=== PATIENT | male | born 1965 | race Caucasian/White ===

== ENCOUNTER 2018-09-30 07:35 | Emergency (ER) | payer OTHER, SELFPAY ==
[~2018-09-30] VITALS: Ht 170.2 cm; Wt 69.0 kg
[~2018-09-30 07:35] MED LIST: ACET650S3 PO; ALBU17IN INH; ASPI81CH21 PO; ATOR80TA59 PO; DILT1TAB12 PO; FIOR1CAP PO; GABA-843 PO; LISI10TA4 PO; NEUR300C PO; NEUR600T PO; PAXI10TA2 PO; POTA99TA PO; TIZA4CAP PO; TRAZ50TA2 PO
--- NOTE | 2018-09-30 08:36 | REP ---
Portable chest, 08:17 a.m., single AP view with the patient sitting: Comparison is 10/19/2014. The lung scott are clear. The cardiac size is normal. The keven, mediastinum, and skeletal structures are unremarkable. There has been interval placement of a dual chamber pacemaker. Impression: Negative portable chest. There has been interval placement of a dual chamber pacemaker. There is no other interval change. Electronically Signed by Cole Briceno MD 09/30/2018 08:28 A
[2018-09-30 08:46] LABS: BASO # 0.1 10^3/uL (0.0-0.2); BASO % 0.8 % (0.0-1.0); EOS # 0.3 10^3/uL (0.0-0.50); EOS % 3.4 % (0.0-3.0); HEMATOCRIT 37.4 % (42.0-52.0); HEMOGLOBIN 13.1 g/dl (13.5-17.5); LYMPH # 2.4 10^3/uL (1.5-4.5); LYMPH % 30.9 % (24.0-44.0); MEAN CORPUSCULAR HEMOGLOBIN 31.3 pg (27.0-33.0); MEAN CORPUSCULAR VOLUME 89.3 fl (80.0-96.0); MONO # 0.5 10^3/uL (0.0-0.8); MONO % 6.6 % (0.0-5.0); NEUTROPHILS # 4.5 10^3/uL (1.8-7.7); NEUTROPHILS % 57.7 % (36.0-66.0); PLATELET COUNT, AUTOMATED 317 10^3/uL (150-450); RED BLOOD COUNT 4.19 10^6/uL (4.30-6.10); WHITE BLOOD COUNT 7.7 10^3/uL (4.0-10.0)
[2018-09-30 09:12] LABS: ALBUMIN 3.4 GM/DL (3.2-5.2); ALT/SGPT 55 U/L (12-78); BILIRUBIN,DIRECT < 0.1 MG/DL (0.0-0.2); BILIRUBIN,TOTAL 0.1 MG/DL (0.2-1.0); BLOOD UREA NITROGEN 11 MG/DL (7-18); C REACTIVE PROTEIN QUANTITATIV < 0.30 MG/DL (0.00-0.30); CALCIUM LEVEL 8.5 MG/DL (8.5-10.1); CARBON DIOXIDE LEVEL 25 MEQ/L (21-32); CHLORIDE LEVEL 111 MEQ/L (98-107); CK-MB VALUE MASS 1.7 NG/ML (<3.6); CPK CREATINE PHOSPHOKINASE 73 U/L (39-308); CREATININE FOR GFR 0.84 MG/DL (0.70-1.30); GLOMERULAR FILTRATION RATE > 60.0 (>56); GLUCOSE, FASTING 105 MG/DL (70-100); MB/CK RELATIVE INDEX 2.33 (< OR =4); POTASSIUM SERUM 3.9 MEQ/L (3.5-5.1); SODIUM LEVEL 143 MEQ/L (136-145); TOTAL PROTEIN 6.6 GM/DL (6.4-8.2); TROPONIN I < 0.02 NG/ML (< 0.10)
[2018-09-30 09:29] LABS: ERYTHROCYTE SEDIMENTATION RATE 6 mm/hr (0-20)
[2018-09-30 10:36] VITALS: BP 155/82
--- NOTE | 2018-09-30 20:12 | ECGEPIP ---
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
== END 2018-09-30 10:54 | disposition home or self-care (01) ==
LOC: M ED 07:35
DX: R07.89 Other chest pain (principal); Z95.0 Presence of cardiac pacemaker; I10 Essential (primary) hypertension; B19.20 Unspecified viral hepatitis C without hepatic coma; I44.7 Left bundle-branch block, unspecified; I25.2 Old myocardial infarction; Z79.899 Other long term (current) drug therapy; Z79.02 Long term (current) use of antithrombotics/antiplatelets; Z88.0 Allergy status to penicillin; F17.210 Nicotine dependence, cigarettes, uncomplicated; F11.20 Opioid dependence, uncomplicated; F12.20 Cannabis dependence, uncomplicated; F14.20 Cocaine dependence, uncomplicated

== ENCOUNTER 2018-10-26 13:02 | Emergency (ER) | payer MEDICAID, OTHER, SELFPAY ==
[~2018-10-26] VITALS: Ht 170.2 cm; Wt 68.8 kg
[2018-10-26] MEDS ORDERED: LISI-542 (13:15)
[2018-10-26] MEDS ORDERED: CARV6.25 (13:15)
[2018-10-26] MEDS ORDERED: CLOP75TA2 (13:15)
[2018-10-26] MEDS ORDERED: NORC1TAB7 PO (15:10)
[2018-10-26 15:17] VITALS: BP 130/69
== END 2018-10-26 15:22 | disposition home or self-care (01) ==
LOC: M ED 13:02
DX: M54.2 Cervicalgia (principal); G89.29 Other chronic pain; H57.12 Ocular pain, left eye; I25.10 Atherosclerotic heart disease of native coronary artery without angina pectoris; I25.2 Old myocardial infarction; Z95.0 Presence of cardiac pacemaker; Z88.0 Allergy status to penicillin; Z79.899 Other long term (current) drug therapy; Z79.02 Long term (current) use of antithrombotics/antiplatelets

== ENCOUNTER → 2018-12-06 | Outpatient (REF) | payer OTHER, MEDICAID ==
[~2018-12-06] MED LIST changes: +CARV6.25; +CLOP75TA2; +LISI-542; +NORC1TAB7 PO
[2018-12-06 15:57] LABS: BASO # 0.1 10^3/uL (0.0-0.2); BASO % 0.9 % (0.0-1.0); EOS # 0.2 10^3/uL (0.0-0.5); EOS % 1.6 % (0.0-3.0); HEMATOCRIT 47.1 % (42.0-52.0); HEMOGLOBIN 15.6 g/dl (13.5-17.5); LYMPH % 32.5 % (24.0-44.0); MEAN CORPUSCULAR HEMOGLOBIN 30.5 pg (27.0-33.0); MEAN CORPUSCULAR HGB CONC 33.1 g/dl (32.0-36.5); MEAN CORPUSCULAR VOLUME 92.2 fl (80.0-96.0); MONO # 0.7 10^3/uL (0.0-0.8); MONO % 7.5 % (0.0-5.0); NEUTROPHILS # 5.4 10^3/uL (1.5-8.5); NEUTROPHILS % 57.3 % (36.0-66.0); PLATELET COUNT, AUTOMATED 405 10^3/uL (150-450); RED BLOOD COUNT 5.11 10^6/uL (4.30-6.10); WHITE BLOOD COUNT 9.3 10^3/uL (4.0-10.0)
[2018-12-06 16:26] LABS: ALBUMIN 4.1 GM/DL (3.2-5.2); ALT/SGPT 57 U/L (12-78); BILIRUBIN,TOTAL 0.3 MG/DL (0.2-1.0); BLOOD UREA NITROGEN 10 MG/DL (7-18); CALCIUM LEVEL 9.6 MG/DL (8.5-10.1); CARBON DIOXIDE LEVEL 31 MEQ/L (21-32); CHLORIDE LEVEL 102 MEQ/L (98-107); CHOLESTEROL LEVEL 191 MG/DL (<200); CHOLESTEROL RISK RATIO 3.745 (<5); CREATININE FOR GFR 0.85 MG/DL (0.70-1.30); GLOMERULAR FILTRATION RATE > 60.0 (>56); GLUCOSE, FASTING 60 MG/DL (70-100); HDL CHOLESTEROL 51 MG/DL (>40); LDL CHOLESTEROL 68 MG/DL (<100); NON-HDL-C 140 MG/DL; POTASSIUM SERUM 4.4 MEQ/L (3.5-5.1); SODIUM LEVEL 139 MEQ/L (136-145); TOTAL PROTEIN 8.2 GM/DL (6.4-8.2); TRIGLYCERIDES LEVEL 358 MG/DL (<150)
[2018-12-09 10:57] LABS: HEPATITIS B SURFACE ANTIBODY POSITIVE (POSITIVE)
[2018-12-09 11:08] LABS: HEPATITIS B SURFACE ANTIGEN NEGATIVE (NEGATIVE)
[2018-12-09 11:56] LABS: HEPATITIS C VIRUS ABY INDEX > 11.0 INDEX (<0.8)
[2018-12-10 16:47] LABS: HEPATITIS B CORE ANTIBODY IGG Negative (Negative); HEPATITIS C QUANTITATION 4610610 IU/mL (.)
== END ==
LOC: M LABDRAW1 14:10
PROVIDERS: ATTEND Family Medicine
DX: Z13.220 Encounter for screening for lipoid disorders (principal); B18.2 Chronic viral hepatitis C; D64.9 Anemia, unspecified

== ENCOUNTER 2018-12-21 23:52 | Emergency (ER) | payer MEDICAID, OTHER ==
[~2018-12-21] VITALS: Ht 170.2 cm; Wt 65.9 kg
[2018-12-22] MEDS ORDERED: DULO1CAP5
[2018-12-22] MEDS ORDERED: ASPI81CH48
[2018-12-22] MEDS ORDERED: METH4PACK
[2018-12-22] MEDS ORDERED: TIZA4TAB4
[2018-12-22] MEDS ORDERED: DIAZ5TAB
[2018-12-22] MEDS ORDERED: VALI5TAB PO (03:23)
[2018-12-22] MEDS ORDERED: diazePAM 5 MG TAB PO ONE (03:30)
[2018-12-22] MEDS ORDERED: KETOROLAC 60 MG/2 ML VIAL (J1885) IM ONE (03:30)
[2018-12-22 03:40] VITALS: BP 136/67
== END 2018-12-22 03:54 | disposition home or self-care (01) ==
LOC: M ED 23:52
DX: M54.5 Low back pain (principal); Z88.0 Allergy status to penicillin; I10 Essential (primary) hypertension; Z79.82 Long term (current) use of aspirin; Z79.899 Other long term (current) drug therapy
CPT/HCPCS: 96372; 99283; J1885

== ENCOUNTER → 2019-01-09 | Outpatient (CLI) | payer OTHER ==
[~2019-01-09] MED LIST changes: +ASPI81CH48; +DIAZ5TAB; +DULO1CAP5; +METH4PACK; +TIZA4TAB4; +VALI5TAB PO
--- NOTE | 2019-01-09 09:39 | REP ---
CT lumbar spine: New 01/09/2019. Indication: Low back pain. Comparison: 02/02/2014. Technique: Unenhanced axial CT images of the lumbar spine were obtained with sagittal and coronal reconstructions provided. Findings: There is no acute fracture, subluxation or dislocation. Very minimal levoscoliosis of the lumbar spine is present with the convexity centered at L4/L5 . There is disc space narrowing and marginal spurring at L4/L5 as well. No significant paraspinal soft tissue abnormalities are detected. Surgical clips are noted within the left pelvis. No focal disc herniation or severe spinal stenosis are detected. Disc and spur complex at L4/L5 shows at least moderate narrowing of the neural foramina bilaterally. Impression: No acute osseous injury of the lumbar spine. Degenerative sequelae as described most pronounced at L4/L5. Electronically Signed by Alvin Mancilla DO 01/09/2019 09:30 A
== END ==
LOC: M RAD 08:55
PROVIDERS: ATTEND Physician Assistant
DX: M54.5 Low back pain (principal)

== ENCOUNTER 2019-02-03 09:42 | Emergency (ER) | payer OTHER ==
[~2019-02-03] VITALS: Ht 170.2 cm; Wt 68.2 kg
[2019-02-03 09:42] VITALS: BP 127/80
[2019-02-03] MEDS ORDERED: AMIT25TA (09:47)
[2019-02-03] MEDS ORDERED: ACETAMINOPHEN 500 MG TAB PO ONE (10:15)
[2019-02-03] MEDS ORDERED: CLINDAMYCIN 150 MG CAP PO ONE (10:15)
[2019-02-03] MEDS ORDERED: CLIN150C14 PO (10:19)
== END 2019-02-03 10:31 | disposition home or self-care (01) ==
LOC: M ED 09:42
DX: K04.7 Periapical abscess without sinus (principal); I21.9 Acute myocardial infarction, unspecified; I10 Essential (primary) hypertension; Z86.69 Personal history of other diseases of the nervous system and sense organs; Z88.0 Allergy status to penicillin; Z79.2 Long term (current) use of antibiotics; Z79.82 Long term (current) use of aspirin; Z79.899 Other long term (current) drug therapy

== ENCOUNTER 2019-03-22 15:28 | Emergency (ER) | payer OTHER ==
[~2019-03-22] VITALS: Ht 170.2 cm; Wt 65.0 kg
[~2019-03-22 15:28] MED LIST changes: +AMIT25TA; +CLIN150C14 PO
[2019-03-22] MEDS ORDERED: NS 500 ML IV ONE (16:15)
[2019-03-22 16:31] LABS: BASO # 0.1 10^3/uL (0.0-0.2); BASO % 0.8 % (0.0-1.0); EOS # 0.1 10^3/uL (0.0-0.5); EOS % 1.8 % (0.0-3.0); HEMATOCRIT 48.3 % (42.0-52.0); HEMOGLOBIN 15.9 g/dl (13.5-17.5); LYMPH % 37.8 % (24.0-44.0); MEAN CORPUSCULAR HEMOGLOBIN 28.7 pg (27.0-33.0); MEAN CORPUSCULAR HGB CONC 32.9 g/dl (32.0-36.5); MEAN CORPUSCULAR VOLUME 87.2 fl (80.0-96.0); MONO # 0.5 10^3/uL (0.0-0.8); MONO % 5.9 % (0.0-5.0); NEUTROPHILS # 4.2 10^3/uL (1.5-8.5); NEUTROPHILS % 53.3 % (36.0-66.0); PLATELET COUNT, AUTOMATED 314 10^3/uL (150-450); RED BLOOD COUNT 5.54 10^6/uL (4.30-6.10); WHITE BLOOD COUNT 7.9 10^3/uL (4.0-10.0)
--- NOTE | 2019-03-22 16:46 | REP ---
Portable chest x-ray: Single view. History: Chest pain. Comparison study: September 30, 2018. Findings: EKG monitoring electrodes are seen. A bipolar pacemaker is seen in the right heart via the left side as before. The heart is not enlarged. Lungs are well inflated and clear. Pleural angles are sharp. Pulmonary vasculature is not increased. No bony abnormalities seen. Impression: Pacemaker in place. No acute disease. Electronically Signed by Anson Knight MD 03/22/2019 04:37 P
[2019-03-22 16:47] LABS: INR 1.01
[2019-03-22 17:02] LABS: ALBUMIN 3.6 GM/DL (3.2-5.2); ALT/SGPT 63 U/L (12-78); BILIRUBIN,DIRECT 0.1 MG/DL (0.0-0.2); BILIRUBIN,TOTAL 0.4 MG/DL (0.2-1.0); BLOOD UREA NITROGEN 15 MG/DL (7-18); CALCIUM LEVEL 8.1 MG/DL (8.5-10.1); CARBON DIOXIDE LEVEL 24 MEQ/L (21-32); CHLORIDE LEVEL 107 MEQ/L (98-107); CK-MB VALUE MASS 2.7 NG/ML (<3.6); CPK CREATINE PHOSPHOKINASE 139 U/L (39-308); CREATININE FOR GFR 0.83 MG/DL (0.70-1.30); GLOMERULAR FILTRATION RATE > 60.0 (>56); GLUCOSE, FASTING 131 MG/DL (70-100); LIPASE 416 U/L (73-393); MB/CK RELATIVE INDEX 1.94 (< OR =4); NT-PRO BNP 414 PG/ML (<125); POTASSIUM SERUM 3.9 MEQ/L (3.5-5.1); SODIUM LEVEL 140 MEQ/L (136-145); TOTAL PROTEIN 6.9 GM/DL (6.4-8.2); TROPONIN I < 0.02 NG/ML (< 0.10)
--- NOTE | 2019-03-22 17:04 | ECGEPIP ---
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
[2019-03-22] MEDS ORDERED: ISOVUE-370 76% 100ML VIAL (Q9967) As Ordered ONE (17:28)
--- NOTE | 2019-03-22 18:16 | REPVR ---
PROCEDURE INFORMATION: Exam: CT Angiography Chest With Contrast Exam date and time: 03/22/2019 5:33 PM Age: 53 years old Clinical indication: Chest pain; Type not specified; Additional info: Cp TECHNIQUE: Imaging protocol: Computed tomographic angiography of the chest with intravenous contrast. 3D rendering: MIP and/or 3D reconstructed images were created by the technologist. Radiation optimization: All CT scans at this facility use at least one of these dose optimization techniques: automated exposure control; mA and/or kV adjustment per patient size (includes targeted exams where dose is matched to clinical indication); or iterative reconstruction. Contrast material: ISOVUE 370; Contrast volume: 75 ml; Contrast route: IV; COMPARISON: CT ANGIO CHEST 11/15/2012 11:26 AM FINDINGS: Pulmonary arteries: The main pulmonary artery measures 23 mm. No pulmonary embolism is identified. Aorta: The ascending thoracic aorta measures 27 mm. Lungs: Minimal subpleural bulla in the superior segment of the right lower lobe posteriorly. Pleural space: Unremarkable. No pneumothorax. No pleural effusion. Heart: Unremarkable. No cardiomegaly. No pericardial effusion. Lymph nodes: Calcified mediastinal and right hilar nodes. Bones/joints: Unremarkable. No acute fracture. Slight anterior wedge configuration of T4 and T6 which appear to be similar to the prior study. Soft tissues: Unremarkable. IMPRESSION: 1. Resolution of left lower lobe infiltrate since 11/15/2012. 2. Old granulomatous disease. 3. Otherwise negative CTA chest. No pulmonary embolism is identified. Electronically signed by: Rey Moise On 03/22/2019 18:16:03 PM
[2019-03-22 22:11] LABS: CK-MB VALUE MASS 2.8 NG/ML (<3.6); CPK CREATINE PHOSPHOKINASE 131 U/L (39-308); MB/CK RELATIVE INDEX 2.14 (< OR =4); TROPONIN I < 0.02 NG/ML (< 0.10)
[2019-03-22 22:45] VITALS: BP 131/70
--- NOTE | 2019-03-23 12:49 | ECGEPIP ---
[facility] - ED Test Date: 2019-03-22 Pat Name: NOLA NAVARRO Department: Room: - Gender: Male Bottom Presser: JAY : 1965 Requested By: SANAM Arteaga Order Number: [id number] Reading MD: Alla Jacome Measurements Intervals [place] Rate: 71 P: 52 OR: 136 QRS: 1 QRSD: 154 T: 161 QT: 455 QTc: 497 Interpretive Statements SINUS RHYTHM LEFT BUNDLE BRANCH BLOCK SIMILAR 03/22/19 15:40 Electronically Signed on 03-23-2019 12:49:47 EST by Alla Jacome
== END 2019-03-22 23:15 | disposition home or self-care (01) ==
LOC: M ED 15:28
DX: R07.89 Other chest pain (principal); B97.89 Other viral agents as the cause of diseases classified elsewhere; B18.2 Chronic viral hepatitis C; I10 Essential (primary) hypertension; I25.2 Old myocardial infarction; R53.1 Weakness; R42 Dizziness and giddiness; Z88.0 Allergy status to penicillin; Z79.01 Long term (current) use of anticoagulants; Z98.61 Coronary angioplasty status; Z95.0 Presence of cardiac pacemaker
CPT/HCPCS: 36415; 71045; 71275; 80047; 80048; 80076; 82550; 82553; 83690; 83880; 84443; 85025; 85610; 87486; 87581; 87633; 87798; 93005; 93041; 94760; 96360; 99285; Q9967

== ENCOUNTER 2019-04-17 18:37 | Emergency (ER) | payer OTHER ==
[~2019-04-17] VITALS: Ht 170.2 cm; Wt 66.8 kg
[2019-04-17] MEDS ORDERED: LIDOCAINE 2% 5ML JELLY UROJET TOP ONE (20:30)
[2019-04-17] MEDS ORDERED: KETOROLAC 30 MG/ML VIAL (J1885) IV ONE (20:45)
[2019-04-17 21:01] LABS: BASO # 0.1 10^3/uL (0.0-0.2); BASO % 0.7 % (0.0-1.0); EOS # 0.2 10^3/uL (0.0-0.5); EOS % 2.3 % (0.0-3.0); HEMATOCRIT 47.4 % (42.0-52.0); HEMOGLOBIN 15.9 g/dl (13.5-17.5); LYMPH # 2.6 10^3/uL (1.5-5.0); LYMPH % 26.3 % (24.0-44.0); MEAN CORPUSCULAR HEMOGLOBIN 29.2 pg (27.0-33.0); MEAN CORPUSCULAR HGB CONC 33.5 g/dl (32.0-36.5); MEAN CORPUSCULAR VOLUME 87.1 fl (80.0-96.0); MONO # 0.5 10^3/uL (0.0-0.8); MONO % 5.4 % (0.0-5.0); NEUTROPHILS # 6.4 10^3/uL (1.5-8.5); NEUTROPHILS % 64.9 % (36.0-66.0); PLATELET COUNT, AUTOMATED 413 10^3/uL (150-450); RED BLOOD COUNT 5.44 10^6/uL (4.30-6.10); WHITE BLOOD COUNT 9.9 10^3/uL (4.0-10.0)
[2019-04-17 21:21] LABS: BLOOD UREA NITROGEN 12 MG/DL (7-18); CARBON DIOXIDE LEVEL 27 MEQ/L (21-32); CHLORIDE LEVEL 103 MEQ/L (98-107); CREATININE FOR GFR 0.97 MG/DL (0.70-1.30); GLOMERULAR FILTRATION RATE > 60.0 (>56); GLUCOSE, FASTING 109 MG/DL (70-100); POTASSIUM SERUM 4.4 MEQ/L (3.5-5.1); SODIUM LEVEL 139 MEQ/L (136-145)
[2019-04-17] MEDS ORDERED: ISOVUE-370 76% 100ML VIAL (Q9967) As Ordered ONE (21:51)
--- NOTE | 2019-04-17 22:45 | REPVR ---
PROCEDURE INFORMATION: Exam: CT Abdomen And Pelvis With Contrast Exam date and time: 04/17/2019 9:58 PM Age: 53 years old Clinical indication: Abdominal pain; Localized; Right; Additional info: Right abd pain/difficulty urinating TECHNIQUE: Imaging protocol: Computed tomography of the abdomen and pelvis with intravenous contrast. Radiation optimization: All CT scans at this facility use at least one of these dose optimization techniques: automated exposure control; mA and/or kV adjustment per patient size (includes targeted exams where dose is matched to clinical indication); or iterative reconstruction. Contrast material: ISOVUE 370; Contrast volume: 100 ml; Contrast route: IV; COMPARISON: No relevant prior studies available. FINDINGS: Tubes, catheters and devices: AICD/Pacemaker device is present, and its leads are in appropriate position. Liver: Normal. No mass. Gallbladder and bile ducts: Normal. No calcified stones. No ductal dilation. Pancreas: Normal. No ductal dilation. Spleen: Normal. No splenomegaly. Adrenals: Normal. No mass. Kidneys and ureters: Normal. No hydronephrosis. Stomach and bowel: Constipation. Appendix: Normal appendix. Intraperitoneal space: Left pelvic clips. Vasculature: Unremarkable. No abdominal aortic aneurysm. Lymph nodes: Unremarkable. No enlarged lymph nodes. Bladder: Asymmetric left lateral bladder wall thickening, question cystitis, consider follow-up alternatively if urinalysis not consistent with cystitis. Reproductive: Unremarkable as visualized. Bones/joints: Unremarkable. No acute fracture. Soft tissues: Small bilateral inguinal hernias containing fat. IMPRESSION: Asymmetric left lateral bladder wall thickening, question cystitis, consider follow-up alternatively if urinalysis not consistent with cystitis. Electronically signed by: Buster Marcelo On 04/17/2019 22:45:10 PM
[2019-04-18 00:47] VITALS: BP 159/78
== END 2019-04-18 00:48 | disposition home or self-care (01) ==
LOC: M ED 18:37
DX: R33.9 Retention of urine, unspecified (principal); R30.0 Dysuria; N32.89 Other specified disorders of bladder; R19.7 Diarrhea, unspecified; G89.29 Other chronic pain; M54.5 Low back pain; F41.9 Anxiety disorder, unspecified; I25.2 Old myocardial infarction; Z88.0 Allergy status to penicillin; Z79.82 Long term (current) use of aspirin
CPT/HCPCS: 74177; 80048; 81001; 85025; 96374; 99284; J1885; Q9967

== ENCOUNTER 2020-01-05 00:08 | Emergency (ER) | payer OTHER ==
[~2020-01-05] VITALS: Ht 170.2 cm; Wt 68.2 kg
[2020-01-05 00:12] VITALS: BP 90/57
[2020-01-05] MEDS ORDERED: ACET-897 PO (01:44)
[2020-01-05] MEDS ORDERED: IBUPROFEN 600MG TAB PO ONE (01:45)
--- NOTE | 2020-01-05 01:47 | REPVR ---
PROCEDURE INFORMATION: Exam: XR Left Forearm Exam date and time: 01/05/2020 1:39 AM Age: 54 years old Clinical indication: Lower or forearm; Left; Patient HX: Distal forearm pain; Additional info: Fall TECHNIQUE: Imaging protocol: XR Left forearm. Views: 2 views. COMPARISON: No relevant prior studies available. FINDINGS: Bones/joints: Normal. No fracture. Soft tissues: Normal. IMPRESSION: Negative left forearm. Electronically signed by: Rey Moise On 01/05/2020 01:46:42 AM
--- NOTE | 2020-01-05 01:48 | REPVR ---
PROCEDURE INFORMATION: Exam: XR Left Hand Exam date and time: 01/05/2020 1:39 AM Age: 54 years old Clinical indication: Pain; Hand; Left; Additional info: Fall TECHNIQUE: Imaging protocol: XR Left hand. Views: 3 or more views. COMPARISON: No relevant prior studies available. FINDINGS: Bones/joints: Normal. No fracture or dislocation. Soft tissues: Normal. IMPRESSION: Negative left hand. Electronically signed by: Rey Moise On 01/05/2020 01:47:50 AM
--- NOTE | 2020-01-05 01:49 | REPVR ---
PROCEDURE INFORMATION: Exam: XR Left Wrist Exam date and time: 01/05/2020 1:39 AM Age: 54 years old Clinical indication: Pain; Wrist; Left; Additional info: Fall TECHNIQUE: Imaging protocol: XR Left wrist. Views: 3 or more views. COMPARISON: No relevant prior studies available. FINDINGS: Bones/joints: Normal. No fracture. Soft tissues: Normal. IMPRESSION: Negative left wrist. Electronically signed by: Rey Moise On 01/05/2020 01:48:35 AM
[2020-01-05] MEDS ORDERED: ACETAMINOPHEN 500 MG TAB PO ONE (02:00)
== END 2020-01-05 02:09 | disposition home or self-care (01) ==
LOC: M ED 00:08
DX: S69.92XA Unspecified injury of left wrist, hand and finger(s), initial encounter (principal); W10.8XXA Fall (on) (from) other stairs and steps, initial encounter; Y92.019 Unspecified place in single-family (private) house as the place of occurrence of the external cause; Y93.9 Activity, unspecified; I25.2 Old myocardial infarction; F17.200 Nicotine dependence, unspecified, uncomplicated; Z88.0 Allergy status to penicillin; Z79.899 Other long term (current) drug therapy

== ENCOUNTER 2020-04-26 08:02 | Emergency (ER) | payer OTHER ==
[~2020-04-26] VITALS: Ht 170.2 cm; Wt 65.1 kg
[~2020-04-26 08:02] MED LIST changes: +ACET-897 PO; -AMIT25TA; +AMIT25TA17; -CLIN150C14 PO; +CLIN150C15 PO; +GABA-282 PO; -GABA-843 PO; -LISI-542; +LISI-898; +LISI10TA22 PO; -LISI10TA4 PO
--- OUTSIDE RECORDS SUMMARY | 2020-04-26 08:07 | CCD ---
Author Organization Unknown Address [address] [place] [address] Phone [phone] Care Team Providers Care Hog Handler Name Role Phone Suzi Castrejon Unavailable Unavailable Allergies Code Code System Name Reaction Severity Status Onset Penicillin g Procaine Active 11/21/2012 Medications Name Status Start Date Stop Date acetaminophen 500 mg tablet TAKE TWO TABLETS BY MOUTH EVERY 6 HOURS NEEDED FOR PAIN Active Not available Aspirin Low Dose 81 mg tablet,delayed re lease Take 1 tablet every day by oral route. Active Not available Lexapro 20 mg tablet Take 1 tablet every day by oral route. Active Not available Lipitor 40 mg tablet Take 1 tablet every day by oral route for 30 days. Active Not available lisinopril 20 mg tablet Take 1 tablet every day by oral route. Active Not available meloxicam 15 mg tablet Active Not avail able Problems Name Status Onset Date Source Psychoactive Substance Abuse Active 11/21/2012 His tory Neck Pain Active 11/21/2012 History Cervical Radiculopathy Active 11/21/[address] Concept Active 11/21/2012 History Liver Enzyme Levels - Finding Active 11/27/2012 Hi story Hypertensive Disorder Active 02/08/2015 History Disorder of Upper Respiratory System Active 04/19/2015 History Acute Hepatitis C Active 07/21/2015 History Seasonal Allergic Rhinitis Active 09/21/2015 Histo ry Chronic Migraine without Aura Active 06/11/2019 Hi story 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 Past Encounters 02/02/2020 Cervical Radiculopathy; Anxiety Morales Brower MD: [address] [place] [phone], Ph. 12/31/2019 Cervical Radiculopathy; Generalized Anxiety Disorder Morales Brower MD: [address] [place] [phone], Ph. Social History Tobacco Smoking Status Never Smoker Vaccine List None recorded. Plan of Care Reminders Provider Appointments None recorded. Lab None recorded. Referral None recorded. Procedures None recorded. Surgeries None recorded. Imaging None recorded. Vitals 02/02/2020 01:00PM TELEHEALTH 20 Height 65 in 12/31/2019 01:20PM ESTABLISHED [id number] Height 65 in 09/26/2019 Height Weight Blood Pressure 65 in 141 lbs 130/93 mm[Hg] 08/25/2019 Height Weight Blood Pressure 65 in 141 lbs 3.2 oz 110/77 mm[Hg] 07/25/2019 Height Weight Blood Pressure 65 in 143 lbs 12.8 oz 159/100 mm[Hg] 06/11/2019 Height Weight Blood Pressure 65 in 150 lbs 149/82 mm[Hg]
--- OUTSIDE RECORDS SUMMARY | 2020-04-26 08:07 | CCD | Summary of Care ---
Author Author [facility] Organization [facility] Address Unknown Phone Unavailable Care Team Providers Care Chalk Tester Name Role Phone Melly Granger PCP Reason for Visit * Reason Comments New Patient Encounter Details Care Team Description Date Type Department Amanda Mccabe MD [address] [facility] [address] [place], [place] [id number] Occipital neuralgia of left side (Primar y Dx) 04/20/2020 Telemedicine [facility] Neurology a [facility] [address] [facility] [address], [address] [place] [phone] Allergies Comments Active Allergy Reactions Severity Noted Date Penicillins High 09/23/2019 documented as of this encounter (statuses as of 04/20/2020) Medications End Date Status Medication Sig Dispensed Refills Start Date Active Aspirin EC 81 MG Oral Take 81 mg by 0 Tablet Delayed Release mouth daily 04/20/2020 Discontinued Lisinopril 40 MG Oral Take 40 mg by 0 Tablet (ZESTRIL) mouth daily 04/20/2020 Discontinued HYDROcodone-Acetaminophen Take 1 tablet 0 7.5-325 MG Oral Tablet by mouth (NORCO) every 6 (six) hours as needed for Pain 04/20/2020 Discontinued Fluticasone Propionate 50 1 spray by 0 MCG/ACT Nasal Suspension Nasal route (FLONASE) daily 04/20/2020 Discontinued Atorvastatin Calcium 80 Take 80 mg by 0 MG Oral Tablet (Lipitor) mouth daily documented as of this encounter (statuses as of 04/20/2020) Active Problems Not on filedocumented as of this encounter (statuses as of 04/20/2020) Social History Date Tobacco Use Types Packs/Day Years Used Never Smoker Smokeless Tobacco: Never Used Drinks/Week oz/Week Comments Alcohol Use Not Currently Alcohol Habits Answer Date Recorded How often do you have a drink containing alcohol? Never 08/27/2019 How many drinks containing alcohol do you have on No t asked a typical day when you are drinking? How often do you have six or more drinks on one Not asked occasion? Sex Assigned at Date Recorded Not on file Date Recorded COVID-19 Exposure Response 04/20/2020 8:15 AM EST In the last month, have you been in contact with Meenu ble to assess someone who was confirmed or suspected to have Coronavirus / COVID-19? documented as of this encounter Last Filed Vital Signs Reading Time Taken Comments Vital Sign - - Blood Pressure - - Pulse - - Temperature - - Respiratory Rate - - Oxygen Saturation - - Inhaled Oxygen Concentration 72.6 kg (160 lb) 04/20/2020 2:13 PM EST Weight 170.2 cm (5' 7") 04/20/2020 2:13 PM EST Height 25.06 04/20/2020 2:13 PM EST Body Mass Index documented in this encounter Progress Notes * Amanda Mccabe MD - 04/20/2020 2:30 PM EST This is a telephonic visit which was performed without the use of video technolo gy due to patient inability to connect with video. The patient was informed of t he risks including security breach, technological failure, inability to perform a physical exam which could delay or prevent an accurate diagnosis, and potentia l complications from treatment decisions rendered over a telephonic platform. Th e patient understands and consented to the use of a telephonic visit/telephone c all. Time spent on the telephonic visit today: 14 minutes [facility] Interim History Last seen 01/2020. Impression was occipital neuralgia due to cervicogenic headac he that appears like migraines. Since the first time we saw him, Morales has alway s complained about lack of treatment and that he wants a one time fix. I tried t o explain all the options for him, and it is not clear what he wants, he denies medications, and states that he will only try occipital injections if it will be one time thing and remove his pain. I tried again to explain to him the process of finding a good regimen, and that it is not a straightforward medication, pro cedure or surgery, but I am not sure he is on-board. He states that he is following with a neurologist at [facility] and that he has been waiting for an MRI for the past 6 months. 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 Abo pa 6 years ago, he started having a progressively-worsening pain in left neck ra diating to front of head. Pain is severe, throbbing and associated with light an d noise sensitivity and nausea. He has chronic daily headache. Pain worsens with rapid neck movements or sneezing. It is severe to the extent that he is bed-aleksey nd. He is afraid to cough to not exacerbate headache. He was seen by neurologist in the past, and had reportedly normal MRIs (unavaila ble to us). He was placed on opioids without relief. Of note, he had MA last year and had a PPM placed. Review of Systems Complete ROS was obtained and is negative except for what is mentioned in HPI Past Medical History: Diagnosis Date Headache Migraine, chronic, without aura Neck pain, chronic Pacemaker Urinary retention Past Surgical History: Procedure Laterality Date ANKLE SURGERY Right KIDNEY SURGERY PACEMAKER/GENERATOR LEAD PLACEMENT TESTICLE REMOVAL Current Outpatient Medications Medication Sig Dispense Refill Aspirin EC 81 MG Oral Tablet Delayed Release Take 81 mg by mouth daily No current facility-administered medications for this visit. Physical exam Visit Vitals Ht 1.702 m (5' 7") Wt 72.6 kg (160 lb) BMI 25.06 kg/m Assessment and plan Cervicogenic headache with occipital neuralgia Plan We discussed again injection and medications, and he did not appear to be intere sted in either. He has no showed multiple appointment. He is following with a neurologist in his hometown, which has been following him for headaches as well. We will defer management to him documented in this encounter Plan of Treatment Health Maintenance Due Date Last Done Comments MMR Vaccines (1 of - 07[birth year]11/1968 Standard series) Varicella Vaccines ( of [birth year]11/1966 2 - 2-dose childhood series) DTaP,Tdap,and Td Vaccines 07/11/1974 (1 - Tdap) HIV Screening 07/11/1980 Colon Cancer Screening 10 07/11/2017 yrs Influenza Vaccine 12/04/2019 Pneumococcal Vaccine: 65+ 07/11/2032 Years (1 of 1 - PPSV23) HIB Vaccines Aged Out No longer eligible based on patient's age to complete this topic Hepatitis A Vaccines Aged Out No longer eligibl e based on patient's age to complete this topic Hepatitis B Vaccines Aged Out No longer eligibl e based on patient's age to complete this topic IPV Vaccines Aged Out No longer eligible based on patient's age to complete this topic Pneumococcal Vaccine: Aged Out No longer eligib le based on patient's age to Pediatrics (0 to 5 Years) complete this topic and At-Risk Patients (6 to 64 Years) documented as of this encounter Results Not on filedocumented in this encounter Visit Diagnoses Diagnosis Occipital neuralgia of left side - Prim elma documented in this encounter
--- OUTSIDE RECORDS SUMMARY | 2020-04-26 08:08 | CCD ---
Author Author [facility] Organization [facility] Address Unknown Phone Unavailable Care Team Providers Care Stoker Mechanic Name Role Phone Vesta HernándezP Unavailable Unavailable Vesta Hernández TURBO OPERATOR Unavailable Unavailable Vesta Hernándeze TURBO OPERATOR Unavailable Unavailable Vesta Hernándezlene TURBO OPERATOR Unavailable Unavailable Vesta Hernándezlene TURBO OPERATOR Unavailable Unavailable Vesta Hernándezlene TURBO OPERATOR Unavailable Unavailable Jumalon, M Onelia TURBO OPERATOR Unavailable Unavailable Jumalon, M Onelia TURBO OPERATOR Unavailable Unavailable Jumalon, M Onelia TURBO OPERATOR Unavailable Unavailable Jumalon, M Onelia TURBO OPERATOR Unavailable Unavailable Jumalon, M Onelia TURBO OPERATOR Unavailable Unavailable Jumalon, M Onelia TURBO OPERATOR Unavailable Unavailable Jumalon, M Onelia TURBO OPERATOR Unavailable Unavailable Jumalon, M Onelia TURBO OPERATOR Unavailable Unavailable Jumalon, M Onelia TURBO OPERATOR Unavailable Unavailable Jumalon, M Onelia TURBO OPERATOR Unavailable Unavailable Jumalon, M Onelia TURBO OPERATOR Unavailable Unavailable Jumalon, M Onelia TURBO OPERATOR Unavailable Unavailable Jumalon, M Onelia TURBO OPERATOR Unavailable Unavailable Jumalon, M Onelia TURBO OPERATOR Unavailable Unavailable Jumalon, M Onelia TURBO OPERATOR Unavailable Unavailable Jumalon, M Onelia TURBO OPERATOR Unavailable Unavailable Jumalon, M Onelia TURBO OPERATOR Unavailable Unavailable Jumalon, M Onelia TURBO OPERATOR Unavailable Unavailable Jumalon, M Onelia TURBO OPERATOR Unavailable Unavailable Jumalon, M Onelia TURBO OPERATOR Unavailable Unavailable Jumalon, M Onelia TURBO OPERATOR Unavailable Unavailable Jumalon, M Onelia TURBO OPERATOR Unavailable Unavailable Teresa Moore MD Unavailable Unavailable Teresa Moore MD Unavailable Unavailable Teresa Moore MD Unavailable Unavailable Teresa Moore MD Unavailable Unavailable Teresa Moore MD Unavailable Unavailable Teresa Moore MD Unavailable Unavailable Teresa Moore MD Unavailable Unavailable Teresa Moore MD Unavailable Unavailable Teresa Moore MD Unavailable Unavailable Teresa Moore MD Unavailable Unavailable Teresa Moore MD Unavailable Unavailable Teresa Moore MD Unavailable Unavailable Teresa Moore MD Unavailable Unavailable Teresa Moore MD Unavailable Unavailable Teresa Moore MD Unavailable Unavailable Teresa Moore MD Unavailable Unavailable Teresa Moore MD Unavailable Unavailable Teresa Moore MD Unavailable Unavailable SleTeresa villagran MD Unavailable Unavailable SleTeresa villagran MD Unavailable Unavailable Adelso Moorejtech Unavailable Unavailable Teresa Moore MD Unavailable Unavailable Teresa Moore MD Unavailable Unavailable SleTeresa villagran MD Unavailable Unavailable Slefrankka Vojtech Unavailable Unavailable Slefrankka Vojtech Unavailable Unavailable Slefrankka Vojtech Unavailable Unavailable Slefrankka Vojtech Unavailable Unavailable Slefrankka Vojtech Unavailable Unavailable Slezka Vojtech Unavailable Unavailable Slezka Vojtech Unavailable Unavailable Slezka Vojtech Unavailable Unavailable Slezka Vojtech Unavailable Unavailable Slefrankka Vojtech Unavailable Unavailable Slezka Vojtech Unavailable Unavailable Slefrankka Vojtech Unavailable Unavailable Slezka Vojtech Unavailable Unavailable Slefrankka Vojtech Unavailable Unavailable Slezka Vojtech Unavailable Unavailable Slefrankka Vojtech Unavailable Unavailable Slefrankka Vojtech Unavailable Unavailable Erendiraka Vojtech Unavailable Unavailable Slefrankka Vojtech Unavailable Unavailable Slefrankka Vojtech Unavailable Unavailable Erendiraka Vojtech Unavailable Unavailable Erendiraka Vojtech Unavailable Unavailable Adelso Moorejtech Unavailable Unavailable Adelso Moorejtech Unavailable Unavailable Erendiraka Vojtech Unavailable Unavailable Erendiraka Vojtech Unavailable Unavailable Erendiraka Vojtech Unavailable Unavailable Adelso Moorejtech Unavailable Unavailable Adelso Moorejtech Unavailable Unavailable Adelso Moorejmaria esther DOW Unavailable Unavailable Adelso Moorejtech Unavailable Unavailable ErendirakaAdelsojtech Unavailable Unavailable SlefrankkaAdelsojtech Unavailable Unavailable Adelso Moorejtech Unavailable Unavailable Chandler Brower MD Unavailable Unavailable Chandler Brower MD Unavailable Unavailable Chandler Brower MD Unavailable Unavailable Chandler Brower MD Unavailable Unavailable Chandler Brower MD Unavailable Unavailable Chandler Brower MD Unavailable Unavailable Chandler Brower MD Unavailable Unavailable Chandler Brower MD Unavailable Unavailable Chandler Brower MD Unavailable Unavailable Chandler Brower MD Unavailable Unavailable Chandler Brower MD Unavailable Unavailable Chandler Brower MD Unavailable Unavailable Chandler Brower MD Unavailable Unavailable Chandler Brower MD Unavailable Unavailable Chandler Brower MD Unavailable Unavailable Chandler Brower MD Unavailable Unavailable Chandler Brower MD Unavailable Unavailable Chandler Brower MD Unavailable Unavailable Chandler Brower MD Unavailable Unavailable Chandler Brower MD Unavailable Unavailable Chandler Brower MD Unavailable Unavailable Chandler Brower MD Unavailable Unavailable Chandler Brower MD Unavailable Unavailable Chandler Brower MD Unavailable Unavailable Chandler Brower MD Unavailable Unavailable Chandler Brower MD Unavailable Unavailable Chandler Brower MD Unavailable Unavailable Chandler Brower MD Unavailable Unavailable Chandler Brower MD Unavailable Unavailable Chandler Brower MD Unavailable Unavailable Chandler Brower MD Unavailable Unavailable Chandler Brower MD Unavailable Unavailable Chandler Brower MD Unavailable Unavailable Chandler Brower MD Unavailable Unavailable Chandler Brower MD Unavailable Unavailable Chandler Brower MD Unavailable Unavailable Chandler Brower MD Unavailable Unavailable Chandler Brower MD Unavailable Unavailable Chandler Brower MD Unavailable Unavailable Chandler Brower MD Unavailable Unavailable Chandler Brower MD Unavailable Unavailable Chandler Brower MD Unavailable Unavailable Chandler Brower MD Unavailable Unavailable Chandler Brower MD Unavailable Unavailable Chandler Brower MD Unavailable Unavailable Chandler Brower MD Unavailable Unavailable Chandler Brower MD Unavailable Unavailable Chandler Brower MD Unavailable Unavailable Chandler Brower MD Unavailable Unavailable Chandler Brower MD Unavailable Unavailable Chandler Brower MD Unavailable Unavailable Chandler Brower MD Unavailable Unavailable Chandler Brower MD Unavailable Unavailable Chandler Brower MD Unavailable Unavailable Chandler Brower MD Unavailable Unavailable Chandler Brower MD Unavailable Unavailable Chandler Brower MD Unavailable Unavailable Chandler Brower MD Unavailable Unavailable Chandler Brower MD Unavailable Unavailable Chandler Brower MD Unavailable Unavailable Chandler Brower MD Unavailable Unavailable Chandler Brower MD Unavailable Unavailable Chandler Brower MD Unavailable Unavailable Chandler Brower MD Unavailable Unavailable Chandler Brower MD Unavailable Unavailable Chandler Brower MD Unavailable Unavailable Chandler Brower MD Unavailable Unavailable Chandler Brower MD Unavailable Unavailable Chandler Brower MD Unavailable Unavailable Chandler Brower MD Unavailable Unavailable Chandler Brower MD Unavailable Unavailable Chandler Brower MD Unavailable Unavailable Chandler Brower MD Unavailable Unavailable Cahndler Brower MD Unavailable Unavailable Chandler Brower MD Unavailable Unavailable Chandler Brower MD Unavailable Unavailable Chandler Brower MD Unavailable Unavailable Chandler Brower MD Unavailable Unavailable Chandler Brower MD Unavailable Unavailable Chandler Brower MD Unavailable Unavailable Chandler Brower MD Unavailable Unavailable Chandler Brower MD Unavailable Unavailable Chandler Brower MD Unavailable Unavailable Chandler Brower MD Unavailable Unavailable Chandler Brower MD Unavailable Unavailable Chandler Brower MD Unavailable Unavailable Chandler Brower MD Unavailable Unavailable Chandler Brower MD Unavailable Unavailable Chandler Brower MD Unavailable Unavailable Chandler Brower MD Unavailable Unavailable Chandler Brower MD Unavailable Unavailable Chandler Brower MD Unavailable Unavailable Chandler Brower MD Unavailable Unavailable Chandler Brower MD Unavailable Unavailable Chandler Brower MD Unavailable Unavailable Chandler Brower MD Unavailable Unavailable Chnadler Brower MD Unavailable Unavailable Chandler Brower MD Unavailable Unavailable Chandler Brower MD Unavailable Unavailable Chandler Brower MD Unavailable Unavailable Chandler Brower MD Unavailable Unavailable Chandler Brower MD Unavailable Unavailable Chandler Brower MD Unavailable Unavailable Chandler Brower MD Unavailable Unavailable Chandler Brower MD Unavailable Unavailable Chandler Brower MD Unavailable Unavailable Chandler Brower MD Unavailable Unavailable Chandler Brower MD Unavailable Unavailable Chandler Brower MD Unavailable Unavailable Chandler Brower MD Unavailable Unavailable Chandler Brower MD Unavailable Unavailable Chandler Brower MD Unavailable Unavailable Chandler Brower MD Unavailable Unavailable Chandler Brower MD Unavailable Unavailable Chandler Brower MD Unavailable Unavailable Chandler Brower MD Unavailable Unavailable Chandler Brower MD Unavailable Unavailable Chandler Brower MD Unavailable Unavailable Chandler Brower MD Unavailable Unavailable Chandler Brower MD Unavailable Unavailable Chandler Brower MD Unavailable Unavailable Chandler Brower MD Unavailable Unavailable Chandler Brower MD Unavailable Unavailable Chandler Brower MD Unavailable Unavailable Chandler Brower MD Unavailable Unavailable Chandler Brower MD Unavailable Unavailable Chandler Brower MD Unavailable Unavailable Chandler Brower MD Unavailable Unavailable Chandler Brower MD Unavailable Unavailable Chandler Brower MD Unavailable Unavailable Chandler Brower MD Unavailable Unavailable Chandler Brower MD Unavailable Unavailable Chandler Brower MD Unavailable Unavailable Chandler Brower MD Unavailable Unavailable Chandler Brower MD Unavailable Unavailable Chandler Brower MD Unavailable Unavailable Chandler Brower MD Unavailable Unavailable Chandler Brower MD Unavailable Unavailable Chandler Brower MD Unavailable Unavailable Chandler Brower MD Unavailable Unavailable Chandler Brower MD Unavailable Unavailable Chandler Brower MD Unavailable Unavailable Chandler Brower MD Unavailable Unavailable Chandler Brower MD Unavailable Unavailable Chandler Brower MD Unavailable Unavailable Chandler Brower MD Unavailable Unavailable Chandler Brower MD Unavailable Unavailable Chandler Brower MD Unavailable Unavailable Chandler Brower MD Unavailable Unavailable Chandler Brower MD Unavailable Unavailable Chandler Brower MD Unavailable Unavailable Chandler Brower MD Unavailable Unavailable Chandler Brower MD Unavailable Unavailable Chandler Brower MD Unavailable Unavailable Chandler Brower MD Unavailable Unavailable Chandler Brower MD Unavailable Unavailable Chandler Brower MD Unavailable Unavailable Chandler Brower MD Unavailable Unavailable Chandler Brower MD Unavailable Unavailable Chandler Brower MD Unavailable Unavailable Chandler Brower MD Unavailable Unavailable Chandler Brower MD Unavailable Unavailable Chandler Brower MD Unavailable Unavailable Chandler Brower MD Unavailable Unavailable Chandler Brower MD Unavailable Unavailable Chandler Brower MD Unavailable Unavailable Chandler Brower MD Unavailable Unavailable Chandler Brower MD Unavailable Unavailable Chandler Brower MD Unavailable Unavailable Chandler Brower MD Unavailable Unavailable Chandler Brower MD Unavailable Unavailable Chandler Brower MD Unavailable Unavailable Chandler Brower MD Unavailable Unavailable Chandler Brower MD Unavailable Unavailable Chandler Brower MD Unavailable Unavailable Chandler Brower MD Unavailable Unavailable Chandler Brower MD Unavailable Unavailable Chandler Brower MD Unavailable Unavailable BolMatthew heard MD Unavailable Unavailable BolMatthew heard MD Unavailable Unavailable BolMatthew heard MD Unavailable Unavailable BolMatthew heard MD Unavailable Unavailable BolMatthew heard MD Unavailable Unavailable BolMatthew heard MD Unavailable Unavailable BolMatthew heard MD Unavailable Unavailable BolMatthew heard MD Unavailable Unavailable BolMatthew heard MD Unavailable Unavailable BolMatthew heard MD Unavailable Unavailable BolMatthew heard MD Unavailable Unavailable BolMatthew heard MD Unavailable Unavailable BolMatthew heard MD Unavailable Unavailable BolMatthew heard MD Unavailable Unavailable BolMatthew heard MD Unavailable Unavailable BolMatthew heard MD Unavailable Unavailable BolMatthew heard MD Unavailable Unavailable BolMatthew heard MD Unavailable Unavailable BolMatthew heard MD Unavailable Unavailable BolMatthew heard MD Unavailable Unavailable BolMatthew heard MD Unavailable Unavailable BolMatthew heard MD Unavailable Unavailable BolMatthew heard MD Unavailable Unavailable Matthew Estevez MD Unavailable Unavailable BolMatthew heard MD Unavailable Unavailable BolMatthew heard MD Unavailable Unavailable BolMatthew heard MD Unavailable Unavailable BolMatthew heard MD Unavailable Unavailable BolMatthew heard MD Unavailable Unavailable BolMatthew heard MD Unavailable Unavailable BolMatthew heard MD Unavailable Unavailable BolMatthew heard MD Unavailable Unavailable BolMatthew heard MD Unavailable Unavailable BolMatthew heard MD Unavailable Unavailable BolMatthew heard MD Unavailable Unavailable BolMatthew heard MD Unavailable Unavailable BolMatthew heard MD Unavailable Unavailable BolMatthew heard MD Unavailable Unavailable BolMatthew heard MD Unavailable Unavailable BolMatthew heard MD Unavailable Unavailable BolMatthew heard MD Unavailable Unavailable BolMatthew heard MD Unavailable Unavailable Herb S Babatunde DOW Unavailable Unavailable Bolfélix S Babatunde DOW Unavailable Unavailable Herb S Babatunde DOW Unavailable Unavailable Herb S Babatunde DOW Unavailable Unavailable Bolfélix, S Babatunde DOW Unavailable Unavailable Bolfélix, S Babatunde DOW Unavailable Unavailable Robison, M Anson PA Unavailable Unavailable Robison, M Anson PA Unavailable Unavailable Robison, M Anson PA Unavailable Unavailable Robison, M Anson PA Unavailable Unavailable Robison, M Anson PA Unavailable Unavailable Robison, M Anson PA Unavailable Unavailable Robison, M Anson PA Unavailable Unavailable Robison, M Anson PA Unavailable Unavailable Robison, M Anson PA Unavailable Unavailable Robison, M Anson PA Unavailable Unavailable Robison, M Anson PA Unavailable Unavailable Robison, M Anson PA Unavailable Unavailable Robison, M Anson PA Unavailable Unavailable Robison, M Anson PA Unavailable Unavailable Robison, M Anson PA Unavailable Unavailable Robison, M Anson PA Unavailable Unavailable Robison, M Anson PA Unavailable Unavailable Robison, M Anson PA Unavailable Unavailable Robison, M Anson PA Unavailable Unavailable Robison, M Anson PA Unavailable Unavailable Robison, M Anson PA Unavailable Unavailable Robison, M Anson PA Unavailable Unavailable Robison, M Anson PA Unavailable Unavailable Robison, M Anson PA Unavailable Unavailable Robison, M Anson PA Unavailable Unavailable Robison, M Anson PA Unavailable Unavailable Robison, M Anson PA Unavailable Unavailable Robison, M Anson PA Unavailable Unavailable Robison, M Anson PA Unavailable Unavailable Robison, M Anson PA Unavailable Unavailable Robison, M Anson PA Unavailable Unavailable Robison, M Anson PA Unavailable Unavailable Robison, M Anson PA Unavailable Unavailable Robison, M Anson PA Unavailable Unavailable Robison, M Anson PA Unavailable Unavailable Robison, M Anson PA Unavailable Unavailable Robison, M Anson PA Unavailable Unavailable Robison, M Anson PA Unavailable Unavailable Robison, M Anson PA Unavailable Unavailable Robison, M Anson PA Unavailable Unavailable Robison, M Anson PA Unavailable Unavailable Robison, M Anson PA Unavailable Unavailable Robison, M Anson PA Unavailable Unavailable Robison, M Anson PA Unavailable Unavailable Robison, M Anson PA Unavailable Unavailable Robisno, M Anson PA Unavailable Unavailable Robison, M Anson PA Unavailable Unavailable NYLA WHALEN MD Unavailable Unavailable NYLA WHALEN MD Unavailable Unavailable NYLA WHALEN MD Unavailable Unavailable NYLA WHALEN MD Unavailable Unavailable NYLA WHALEN MD Unavailable Unavailable NYLA WHALEN MD Unavailable Unavailable WHALEN, NYLA PINEDA MD Unavailable Unavailable WHALEN, NYLA PINEDA MD Unavailable Unavailable WHALEN, NYLA PINEDA MD Unavailable Unavailable WHALEN, NYLA PINEDA MD Unavailable Unavailable WHALEN, NYLA PINEDA MD Unavailable Unavailable WHALEN, NYLA PINEDA MD Unavailable Unavailable WHALEN, NYLA PINEDA MD Unavailable Unavailable WHALEN, NYLA PINEDA MD Unavailable Unavailable WHALEN, NYLA PINEDA MD Unavailable Unavailable WHALEN, NYLA PINEDA MD Unavailable Unavailable WHALEN, NYLA PINEDA MD Unavailable Unavailable WHALEN, NYLA PINEDA MD Unavailable Unavailable WHALEN, NYLA PINEDA MD Unavailable Unavailable WHALEN, NYLA PINEDA MD Unavailable Unavailable WHALEN, NYLA PINEDA MD Unavailable Unavailable WHALEN, NYLA PINEDA MD Unavailable Unavailable WHALEN, NYLA PINEDA MD Unavailable Unavailable WHALEN, NYLA PINEDA MD Unavailable Unavailable WHALEN, NYLA PINEDA MD Unavailable Unavailable WHALEN, NYLA PINEDA MD Unavailable Unavailable WHALEN, NYLA PINEDA MD Unavailable Unavailable WHALEN, NYLA PINEDA MD Unavailable Unavailable WHALEN, NYLA PINEDA MD Unavailable Unavailable WHALEN, NYLA PINEDA MD Unavailable Unavailable WHALEN, NYLA PINEDA MD Unavailable Unavailable WHALEN, NYLA PINEDA MD Unavailable Unavailable WHALEN, NYLA PINEDA MD Unavailable Unavailable WHALEN, NYLA PINEDA MD Unavailable Unavailable WHALEN, NYLA PINEDA MD Unavailable Unavailable WHALEN, NYLA PINEDA MD Unavailable Unavailable WHALEN, NYLA PINEDA MD Unavailable Unavailable WHALEN, NYLA PINEDA MD Unavailable Unavailable WHALEN, NYLA PINEDA MD Unavailable Unavailable WHALEN, NYLA PINEDA MD Unavailable Unavailable WHALEN, NYLA PINEDA MD Unavailable Unavailable WHALEN, NYLA PINEDA MD Unavailable Unavailable WHALEN, NYLA PINEDA MD Unavailable Unavailable WHALENNYLA MD Unavailable Unavailable WHALENNYLA MD Unavailable Unavailable WHALEN, NYLA PINEDA MD Unavailable Unavailable WHALENNYLA MD Unavailable Unavailable WHALENNYLA MD Unavailable Unavailable WHALENNYLA MD Unavailable Unavailable WHALEN, NYLA PINEDA MD Unavailable Unavailable WHALEN, NYLA PINEDA MD Unavailable Unavailable WHALENNYLA MD Unavailable Unavailable WHALEN, NYLA PINEDA MD Unavailable Unavailable WHALEN, NYLA PINEDA MD Unavailable Unavailable WHALEN, NYLA PINEDA MD Unavailable Unavailable WHALEN, NYLA PINEDA MD Unavailable Unavailable WHALEN, NYLA PINEDA MD Unavailable Unavailable WHALEN, NYLA PINEDA MD Unavailable Unavailable WHALEN, NYLA PINEDA MD Unavailable Unavailable WHALEN, NYLA PINEDA MD Unavailable Unavailable WHALEN, NYLA PINEDA MD Unavailable Unavailable WHALENNYLA MD Unavailable Unavailable WHALENERASMONYLA EDWIN MD Unavailable Unavailable WHALENNYLA GEORGE MD Unavailable Unavailable WHALENNYLA GEORGE MD Unavailable Unavailable WHALENNYLA GEORGE MD Unavailable Unavailable WHALENNYLA GEORGE MD Unavailable Unavailable WHALENNYLA GEORGE MD Unavailable Unavailable WHALENNYLA GEORGE MD Unavailable Unavailable WHALENNYLA GEORGE MD Unavailable Unavailable WHALENNYLA GEORGE MD Unavailable Unavailable WHALENNYLA GEORGE MD Unavailable Unavailable WHALENNYLA GEORGE MD Unavailable Unavailable WHALENNYLA GEORGE MD Unavailable Unavailable WHALENNYLA GEORGE MD Unavailable Unavailable WHALENNYLA GEORGE MD Unavailable Unavailable WHALENNYLA GEORGE MD Unavailable Unavailable WHALENNYLA GEORGE MD Unavailable Unavailable WHALENNYLA GEORGE MD Unavailable Unavailable NYLA WHALEN MD Unavailable Unavailable Matthew Estevez MD Unavailable Unavailable Matthew Estevez MD Unavailable Unavailable Matthew Estevez MD Unavailable Unavailable Matthew Estevez MD Unavailable Unavailable Matthew Estevez MD Unavailable Unavailable Matthew Estevez MD Unavailable Unavailable Matthew Estevez MD Unavailable Unavailable Matthew Estevez MD Unavailable Unavailable Matthew Estevez MD Unavailable Unavailable Matthew Estevez MD Unavailable Unavailable Matthew Estevez MD Unavailable Unavailable Matthew Estevez MD Unavailable Unavailable Matthew Estevez MD Unavailable Unavailable Matthew Estevez MD Unavailable Unavailable Matthew Estevez MD Unavailable Unavailable Matthew Estevez MD Unavailable Unavailable Matthew Estevez MD Unavailable Unavailable Matthew Estevez MD Unavailable Unavailable Matthew Estevez MD Unavailable Unavailable Matthew Estevez MD Unavailable Unavailable Matthew Estevez MD Unavailable Unavailable Matthew Estevez MD Unavailable Unavailable Matthew Estevez MD Unavailable Unavailable Matthew Estevez MD Unavailable Unavailable Matthew Estevez MD Unavailable Unavailable Matthew Estevez MD Unavailable Unavailable Matthew Estevez MD Unavailable Unavailable Matthew Estevez MD Unavailable Unavailable Matthew Estevez MD Unavailable Unavailable Matthew Estevez MD Unavailable Unavailable Matthew Estevez MD Unavailable Unavailable Matthew Estevez MD Unavailable Unavailable Matthew Estevez MD Unavailable Unavailable Matthew Estevez MD Unavailable Unavailable Bolla, Matthew Fine MD Unavailable Unavailable Bolla, Matthew Fine MD Unavailable Unavailable Bolla, Matthew Fine MD Unavailable Unavailable Bolla, Matthew Fine MD Unavailable Unavailable Bolla, Matthew Fine MD Unavailable Unavailable Bolla, Matthew Fine MD Unavailable Unavailable Bolla, Matthew Fine MD Unavailable Unavailable Bolla, Matthew Fine MD Unavailable Unavailable Bolla, Matthew Fine MD Unavailable Unavailable Bolfélix, Matthew Fine MD Unavailable Unavailable Bolla, Matthew Fine MD Unavailable Unavailable Bolfélxi, Matthew Fine MD Unavailable Unavailable Bolfélix, Matthew Fine MD Unavailable Unavailable Bolfélix, Matthew Fine MD Unavailable Unavailable Cash, Suzi TURBO OPERATOR TURBO OPERATOR Unavailable Unavailable TOMAS SWANN MD Unavailable Unavailable TOMAS SWANN MD Unavailable Unavailable TOMAS SWANN MD Unavailable Unavailable TOMAS SWANN MD Unavailable Unavailable Cash, A Suzi TURBO OPERATOR Unavailable Unavailable Cash, A Suzi TURBO OPERATOR Unavailable Unavailable Cash, A Suiz TURBO OPERATOR Unavailable Unavailable Cash, A Suzi TURBO OPERATOR Unavailable Unavailable Cash, A Suzi TURBO OPERATOR Unavailable Unavailable Cash, A Suzi TURBO OPERATOR Unavailable Unavailable Cash, A Suzi TURBO OPERATOR Unavailable Unavailable Cash, A Suzi TURBO OPERATOR Unavailable Unavailable Cash, A Suzi TURBO OPERATOR Unavailable Unavailable Cash, A Suzi TURBO OPERATOR Unavailable Unavailable Cash, A Suzi TURBO OPERATOR Unavailable Unavailable Cash, A Suzi TURBO OPERATOR Unavailable Unavailable Cash, A Suzi TURBO OPERATOR Unavailable Unavailable Cash, A Suzi TURBO OPERATOR Unavailable Unavailable Cash, A Suzi TURBO OPERATOR Unavailable Unavailable Cash, A Suzi TURBO OPERATOR Unavailable Unavailable Cash, A Suzi TURBO OPERATOR Unavailable Unavailable Cash, A Suzi TURBO OPERATOR Unavailable Unavailable Cash, A Suzi TURBO OPERATOR Unavailable Unavailable Cash, A Suzi TURBO OPERATOR Unavailable Unavailable Cash, A Suzi TURBO OPERATOR Unavailable Unavailable Cash, A Suzi TURBO OPERATOR Unavailable Unavailable Cash, A Suzi TURBO OPERATOR Unavailable Unavailable Cash, A Suzi TURBO OPERATOR Unavailable Unavailable Cash, A Suzi TURBO OPERATOR Unavailable Unavailable Cash, A Suzi TURBO OPERATOR Unavailable Unavailable Cash, A Suzi TURBO OPERATOR Unavailable Unavailable Cash, A Suzi TURBO OPERATOR Unavailable Unavailable Re-disclosure Warning The records that you are about to access may contain information from federally-assisted alcohol or drug abuse programs. If such information is present, then the following federally mandated warning applies: This information has been disclosed to you from records protected by federal confidentiality rules (42 CFR part 2). The federal rules prohibit you from making any further disclosure of this information unless further disclosure is expressly permitted by the written consent of the person to whom it pertains or as otherwise permitted by 42 CFR part 2. A general authorization for the release of medical or other information is NOT sufficient for this purpose. The Federal rules restrict any use of the information to criminally investigate or prosecute any alcohol or drug abuse patient.The records that you are about to access may contain highly sensitive health information, the redisclosure of which is protected by Article 27-F of the [facility] Public Health law. If you continue you may have access to information: Regarding HIV / AIDS; Provided by facilities licensed or operated by the [facility] Office of Mental Health; or Provided by the [facility] Office for People With Developmental Disabilities. If such information is present, then the following [facility] mandated warning applies: This information has been disclosed to you from confidential records which are protected by state law. State law prohibits you from making any further disclosure of this information without the specific written consent of the person to whom it pertains, or as otherwise permitted by law. Any unauthorized further disclosure in violation of state law may result in a fine or nursing home sentence or both. A general authorization for the release of medical or other information is NOT sufficient authorization for further disc losure. Allergies and Adverse Reactions Type Description Substance Reaction Status Data Source(s ) Drug Class PENICILLINS Penicillin [facility] Penicillin V Potassium Penicillin V Potassium Penicillin V P otassium 500 MG Oral Tablet Hives Active eCW1 ([facility]) Family History Family Member Name Family Member Gender Family Member Status Date o f Status Description Data Source(s) Unknown Unknown Problem MEDENT ([facility], ) Unknown Unknown Problem MEDENT ([facility], ) Encounters Encounter Providers Location Date Indications Data Source(s ) Outpatient Attender: TOMAS SWANN MD [id number] 04/20/2020 12:00:00 AM EST - 04/20/2020 03:34:15 PM EST Occipital neuralgia [facility] Occipital neuralgia Outpatient Attender: TOMAS SWANN MD 02/04/2020 12:0 0:00 AM EST [facility] Nola Brower MD: [address] [place] [phone], Ph. Attender: Nola Brower MD [facility] Medical 02/02/2020 12:00:00 AM EST JS ([facility]) Outpatient Attender: Anson Robison PAConsultant: EDWIN FIGUEROA MD 01/19/2020 01:32:00 PM EST - 01/19/2020 01:32:00 PM EST [facility] Outpatient Attender: TOMAS SWANN MD [id number] 01/13/2020 12:00:00 AM EST - 01/13/2020 03:54:28 PM EST Occipital neuralgia [facility] spital Occipital neuralgia Outpatient Attender: JUSTINA HORN FP 12/31/2019 01:20:00 P M EDT [facility] Nola Brower MD: [address] [place] [address] [phone], Ph. Attender: Nola Brower MD [facility] Medical 12/31/2019 12:00:00 AM EDT JS ([facility]) Nola Brower MD: [address] [place] [address] [phone], Ph. Attender: Nola Brower MD [facility] Medical 12/31/2019 12:00:00 AM EDT JS ([facility]) Outpatient Attender: Teresa Moore MD SJServando.TUNDE-SJP.TUNDE 07/2019 12:00:00 AM EDT - 12/08/2019 04:56:52 PM EDT [facility] Outpatient Attender: Suzi HORN FP 12/07/2019 10:2 9:01 AM EDT [facility] Outpatient Attender: Suzi HORN FP 12/07/2019 10:2 8:00 AM EDT [facility] Outpatient Attender: TOMAS SWANN MDReferrer: TOMAS SWANN MD 11/24/2019 12:00:00 AM [facility] Outpatient Attender: JUSTINA BARNETT 11/19/2019 04:59:00 P M EDT [facility] Outpatient Attender: Suzi HORN FP 11/19/2019 04:5 6:03 PM EDT [facility] Outpatient Attender: JUSTINA BARNETT 11/07/2019 12:41:00 P M EDT [facility] Outpatient Attender: Suzi HORN FP 11/03/2019 10:1 8:01 AM EDT [facility] Outpatient Attender: JUSTINA HORN FP 10/27/2019 07:42:00 A M EDT [facility] Onelia Hernández, SOLUTION MIXER: [address], [place] [address], Ph. Attender: Onelia Hernández [facility] - [facility] - Main Office 10/21/2019 12:00:00 AM EDT ATHLizz NA ([facility]) Outpatient Attender: JUSTINA HORN 10/20/2019 03:37:00 P M EDT [facility] Outpatient Attender: TOMAS SWANN MDReferrer: TOMAS SWANN MD 10/16/2019 12:00:00 AM [facility] Outpatient Attender: JUSTINA BARNETT 10/14/2019 09:44:02 A M EDT [facility] Outpatient Attender: Suzi BARNETT 10/14/2019 09:4 4:01 AM EDT [facility] Outpatient Attender: TOMAS SWANN MD [id number] 10/13/2019 12:00:00 AM EDT - 10/13/2019 03:00:27 PM EDT Occipital neuralgia [facility] spital Occipital neuralgia Outpatient Attender: JUSTINA BARNETT 10/08/2019 12:02:14 A M EDT [facility] Outpatient Attender: JUSTINA BARNETT 10/07/2019 10:31:00 A M EDT [facility] Outpatient Attender: JUSTINA HORN 10/03/2019 12:02:11 A M EDT [facility] Outpatient Attender: JUSTINA Castrejon TURBO OPERATOR 10/02/2019 09:11:00 A M EDT [facility] Outpatient Attender: JUSTINA Castrejon TURBO OPERATOR 09/30/2019 11:14:02 A M EDT [facility] Outpatient Attender: [facility] 09/30/2019 11:1 4:01 AM EDT [facility] Outpatient Attender: JUSTINA Castrejon TURBO OPERATOR 09/26/2019 09:00:02 A M EDT [facility] Outpatient Attender: Suzi Castrejon TURBO OPERATOR 09/26/2019 08:3 8:01 AM EDT [facility] Outpatient Attender: Suzi Castrejon TURBO OPERATOR 09/23/2019 10:2 1:01 AM EDT [facility] Outpatient Attender: JUSTINA Castrejon TURBO OPERATOR 09/22/2019 11:29:01 A M EDT [facility] Outpatient Attender: JUSTINA [facility] 09/22/2019 10:18:02 A M EDT [facility] Onelia Hernández, SOLUTION MIXER: [address], [place] [address], Ph. Attender: Onelia Hernández [facility] 09/22/2019 12:00:00 AM EDT ATHE NA ([facility]) Onelia Hernández, SOLUTION MIXER: [address], [place] [address], Ph. Attender: Onelia Hernández [facility] 09/22/2019 12:00:00 AM EDT ATHE NA ([facility]) Outpatient Attender: Suzi Castrejon [facility] 09/15/2019 09:3 0:05 AM EDT [facility] Outpatient Attender: JUSTINA Castrejon [facility] 09/15/2019 09:25:00 A M EDT [facility] Outpatient Attender: TOMAS SWANN MD 09/09/2019 12:0 0:00 AM EDT [facility] Outpatient Attender: Suzi Castrejon JUSTINA FP 09/02/2019 05:0 3:00 PM EDT [facility] Outpatient Attender: Suzi Castrejon JUSTINA FP 09/02/2019 05:0 2:02 PM EDT [facility] Outpatient Attender: Suzi Castrejon JUSTINA FP 09/02/2019 05:0 0:59 PM EDT [facility] Outpatient Attender: JUSTINA Castrejon JUSTINA FP 08/26/2019 12:02:09 A M EDT [facility] Outpatient Attender: Suzi Castrejon JUSTINA FP 08/25/2019 11:5 9:01 AM EDT [facility] Outpatient Attender: JUSTINA Castrejon JUSTINA BARNETT 08/25/2019 10:48:00 A M EDT [facility] Outpatient Attender: JUSTINA Castrejon JUSTINA BARNETT 08/22/2019 12:02:13 A M EDT [facility] Outpatient Attender: JUSTINA Castrejon JUSTINA BARNETT 08/21/2019 02:35:00 P M EDT [facility] Outpatient Attender: JUSTINA Castrejon JUSTINA FP 08/14/2019 10:43:01 A M EDT [facility] Onelia Hernández, SOLUTION MIXER: [address] [address], Ph. Attender: Onelia Hernández TURBO OPERATOR [place] - [facility] [place] - Main Office 08/13/2019 12:00:00 AM EDT JS ([facility]) Onelia Hernández, SOLUTION MIXER: [address] [address], Ph. Attender: Onelia Hernández TURBO OPERATOR [place] - [facility] Main Office 08/13/2019 12:00:00 AM EDT JS ([facility]) Onelia Hernández, SOLUTION MIXER: [address], [place] [address], Ph. Attender: Onelia Hernández TURBO OPERATOR [place] - [facility] Office 08/13/2019 12:00:00 AM EDT JS ([facility]) Outpatient Attender: JUSTINA Castrejon TURBO OPERATOR FP 08/12/2019 07:39:31 P M EDT [facility] Outpatient Attender: Suzi Castrejon TURBO OPERATOR FP 07/25/2019 12:5 6:00 PM EDT [facility] Outpatient Attender: JUSTINA Castrejon TURBO OPERATOR FP 07/25/2019 09:58:00 A M EDT [facility] Outpatient Attender: JUSTINA Castrejon TURBO OPERATOR FP 07/25/2019 09:38:00 A M EDT [facility] Outpatient Attender: JUSTINA Castrejon TURBO OPERATOR FP 07/25/2019 09:37:00 A M EDT [facility] Outpatient SJP.TUNDE-SJP 07/24/2019 03:36:08 PM EDT [facility] Outpatient Referrer: Teresa BAIRD.TUNDE-SJServando.TUNDE 07/04 12:00:00 AM EDT - 07/24/2019 03:08:19 PM EDT [facility] Outpatient Attender: JUSTINA Castrejon [facility] 07/23/2019 09:50:02 A M EDT [facility] Onelia Hernández, SOLUTION MIXER: [address], [place] [address], Ph. Attender: Onelia Hernández [facility] - [facility] 07/02/2019 12:00:00 AM EDT ATHE NA ([facility]) Onelia Hernández, SOLUTION MIXER: [address], [place] [address], Ph. Attender: Onelia Hernández [facility] - [facility] 07/02/2019 12:00:00 AM EDT ATHE NA ([facility]) Onelia Hernández, SOLUTION MIXER: [address], [place] [address], Ph. Attender: Onelia Hernández TURBO OPERATOR [place] - [facility] 07/02/2019 12:00:00 AM EDT ATHLizz ARMAS ([facility]) Onelia Hernández, SOLUTION MIXER: [address], [address], [place] [address], Ph. Attender: Onelia Hernández TURBO OPERATOR [place] - [facility] 07/02/2019 12:00:00 AM EDT ATHLizz ARMAS ([facility]) Outpatient Attender: JUSTINA Castrejon [facility] 06/25/2019 02:36:00 P M EDT [facility] Outpatient Referrer: Babatunde Estevez MD 06/20/2019 09:53:0 0 AM EDT [facility] Outpatient Referrer: Babatunde Estevez MD 06/19/2019 11:24:0 0 AM EDT [facility] Outpatient Referrer: Babatunde Estevez MD 06/19/2019 08:30:0 0 AM EDT [facility] Babatunde Estevez MD: [address], [address], [place] [address], Ph. Attender: Babatunde Estevez MD [place] - [facility] 06/17/2019 12:00:00 AM EDT SJ ([facility]) Babatunde Estevez MD: [address], [address], [place] [address], Ph. Attender: Babatunde Estevez MD [place] - [facility] 06/17/2019 12:00:00 AM EDT JS ([facility]) Babatunde Estevez MD: [address], [address], [place] [address], Ph. Attender: Babatunde Estevez MD [place] - [facility] 06/17/2019 12:00:00 AM EDT JS ([facility]) Babatunde Estevez MD: [address] [facility] [address], [place] [address], Ph. Attender: Babatunde Estevez MD [place] - [facility] - Main Office 06/17/2019 12:00:00 AM EDT JS ([facility]) Babatunde Estevez MD: [address] [facility] [address], [facility] [place] [address], Ph. Attender: Babatunde Estevez MD [place] - [facility] - [facility] Office 06/17/2019 12:00:00 AM EDT JS ([facility]) [facility] Urology [address] [facility] [address] 06/13/2019 12:00:00 AM EDT eCW1 ([facility]) Outpatient Attender: JUSTINA BARNETT 06/11/2019 04:38:01 P M EDT [facility] Outpatient Attender: Suzi BARNETT 06/11/2019 04:3 7:02 PM EDT [facility] Outpatient Attender: JUSTINA BARNETT 06/11/2019 02:30:01 P M EDT [facility] Outpatient Attender: JUSTINA BARNETT 06/11/2019 02:10:01 P M EDT [facility] Outpatient Attender: JUSTINA BARNETT 06/11/2019 02:08:01 P M EDT [facility] Outpatient Attender: JUSTINA BARNETT 06/11/2019 01:34:01 P M EDT [facility] Outpatient Attender: JUSTINA BARNETT 06/11/2019 01:33:[address] [facility] Unknown [address] [facility] [address] 06/10/2019 12:00:00 AM EDT eCW1 ([facility]) [facility] Urology [address] [facility] [address] 05/30/2019 12:00:00 AM EDT eCW1 ([facility]) [facility] Urology [address] [facility], [facility] [address] 05/27/2019 12:00:00 AM EDT eCW1 ([facility]) Outpatient Attender: JUSTINA HORN FP 05/23/2019 02:56:00 P M EDT [facility] [address] [place] [address] 05/23/2019 12:00:00 AM EDT eCW1 ([facility]) Outpatient Referrer: EDWIN WHALEN MD 05/09/2019 06:14:00 A M EST [facility] Urology [address] [facility] [address] 04/29/2019 12:00:00 AM EST eCW1 ([facility]) [facility] GME Resident [address] [place] [address] 04/11/2019 12:00:00 AM EST eCW1 ([facility]) Outpatient Attender: JUSTINA HORN FP 04/08/2019 08:39:02 A M [facility] Outpatient Attender: JUSTINA BARNETT 04/07/2019 03:34:00 P M [facility] Outpatient Attender: Nola Brower MD FP 04/07/2019 03:33:00 PM [facility] Outpatient Attender: Nola BARNETT 04/04/2019 04:59:00 PM [facility] Outpatient Attender: Teresa Moore MD SJP.TUNDE-SJP.TUNDE 03/07 12:00:00 AM EST - 04/04/2019 02:46:11 PM [facility] Outpatient Referrer: EDWIN WHALEN MD 03/27/2019 03:28:00 P M EST [facility] [place] [address] [facility] [address] 03/12/2019 12:00:00 AM EST eCW1 ([facility]) Medications Medication Brand Name Start Date Product Form Dose Route Admi nistrative Instructions Pharmacy Instructions Status Indications Reaction Description Data Source(s) Tamsulosin hydrochloride 0.4 MG Oral Capsule Tamsulosi n HCl 0.4 MG Tamsulosin HCl 0.4 MG 04/29/2019 12:00:00 AM EST active 1 capsule eCW1 ([facility]) Fluticasone Propionate 50 MCG/ACT Nasal Suspension (FLONASE) 0054-3 [id number] 1 {spray} Nasal aborted 1 spray by Nasal route d [facility] atorvastatin 80 MG Oral Tablet Atorvastatin Calcium 80 MG Oral Tablet (Lipitor) Atorvastatin Calcium 80 MG Oral Tablet (Lipitor) 80 mg Oral aborted Take 80 mg by mouth daily [facility] Acetaminophen 325 MG / Hydrocodone Pam trate 7.5 MG Oral Tablet HYDROcodone- Acetaminophen 7.5-325 MG Oral Tablet (NORCO) HYDROcodone-Acetaminophen 7.5-325 MG Oral Tablet (NORCO) 1 {tbl} Oral aborted Take 1 tablet by mouth every 6 (six) hours as needed for Pain [facility] Lisinopril 40 MG Oral Tablet Lisinopril 40 MG Oral Tab let (ZESTRIL) Lisinopril 40 MG Oral Tablet (ZESTRIL) 40 mg Oral aborted Take 40 mg by mouth daily [facility] Insurance Providers Payer name Policy type / Coverage type Policy ID Covered green party ID Covered green party's relationship to carlos Policy Carlos Plan Information [facility] [id number] SP [id number] [facility] I [id number] Self [id number] [facility] O [id number] S [id number] [facility] PLAN [id number] 18 [id number] [facility] [id number] SP [id number] SELF PAY UNAVAILABLE SP UNAVAILA BLE Medicaid S [id number] S [id number] Managed Care - [facility] Community Plan P [id number] S [id number] [facility] MEDICAID [id number] Ceci [id number] [facility] I [id number] Self [id number] Medicaid S [id number] S [id number] Managed Care - [facility] Community Plan P [id number] S [id number] Medicaid S [id number] S [id number] Managed Care [facility] Community Plan P [id number] S [id number] [facility] XIX -RECURRING [id number] 18 [id number] MEDICAID [id number] SP [id number] SELF PAY ONLY [id number] SP [id number] [employer] COMMUNITY PLAN MCDHMO [id number] SP [id number] Managed Care - Community Plan [facility] P [id number] S [id number] [employer] Commercial Self Medicaid [place] Medigap Part B Self [facility] Ashli/MCR Health Maintenance Organization (HMO) Self Managed Care - Community Plan [facility] P [id number] S [id number] Self Pay O [id number] S [id number] Managed Care - Community Plan [facility] P [id number] S [id number] Medicaid S [id number] S [id number] [facility] COMMUNITY PLAN MEDICAID [id number] UN[employer] COMMUNITY PLAN MCDHMO [id number] SP [id number] [facility](MCAID) O [id number] S [id number] Managed Care - Community Plan [facility] P [id number] S [id number] [facility] Comm Plan Ashli FHP Commercial Self [facility]-Community Plan-Ashli Commercial Self [id number] Problems, Conditions, and Diagnoses Code Display Name Description Problem Type Effective Dates Data Source(s) 907128610 Clinical finding Clinical Finding Problem 12/18/2019 04 :16:03 PM EDT JS ([facility]) 707765855 Acute ST segment elevation myocardial in farction Acute ST Segment Elevation Myocardial Infarction Problem 12/18/2019 04:16:03 PM EDT Sharyn WILCOX ([facility]) 72988926 Anxiety Anxiety Problem 12/18/2019 04:16:03 PM ED T JS ([facility]) [id number] Clinical finding Clinical Finding Problem 12/18/2019 04 :16:03 PM EDT JS ([facility]) 705037054 SNOMED CT Concept SNOMED CT Concept Problem 12/17 04:16:03 PM EDT JS ([facility]) 752149459 Acute ST segment elevation myocardial in farction Acute ST Segment Elevation Myocardial Infarction Problem 12/18/2019 04:16:03 PM EDT Sharyn WILCOX ([facility]) 300.02 GENERALIZED ANXIETY DISORDER GENERALIZED ANXIETY DISOR TU 10/14/2019 09:43:22 AM EDT [facility] 69327874 Generalized anxiety disorder Generalized Anxiety Disor tu Problem 10/09/2019 12:00:00 AM EDT JS ([facility]) 02544520 Generalized anxiety disorder Generalized Anxiety Disor tu Problem 10/09/2019 12:00:00 AM EDT JS ([facility]) 309.81 PTSD PTSD 09/30/2019 11:13:54 AM ED T [facility] 85664936 Posttraumatic stress disorder Posttraumatic Stress Dis order Problem 09/26/2019 12:00:00 AM EDT JS ([facility]) 14638869 Posttraumatic stress disorder Posttraumatic Stress Dis order Problem 09/26/2019 12:00:00 AM EDT JS ([facility] er) 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 angina pectoris with documented spasm 06/11/2019 04:36:20 PM EDT [facility] 346.70 Chronic migraine without aura Chronic migraine without aura 06/11/2019 04:36:20 PM EDT [facility] 723.1 Neck pain Neck pain 06/11/2019 04:36:20 PM ED T [facility] [id number] Arteriosclerosis of autologo us arterial coronary artery bypass graft with angina Arteriosclerosis of Autologous Arterial Coronary Artery Bypass Graft with Angina Problem 06/11/2019 12:00:00 AM EDT JS ([facility]) [id number] Chronic migraine without aura Chronic Migraine w ithout Aura Problem 06/11/2019 12:00:00 AM EDT JS ([facility]) [id number] Arteriosclerosis of autologo us arterial coronary artery bypass graft with angina Arteriosclerosis of Autologous Arterial Coronary Artery Bypass Graft with Angina Problem 06/11/2019 12:00:00 AM EDT JS ([facility]) [id number] Chronic migraine without aura Chronic Migraine w ithout Aura Problem 06/11/2019 12:00:00 AM EDT JS ([facility]) M54.81 Occipital neuralgia Occipital neuralgia Diagnosis 0 04/20/2020 08:15:19 AM [facility] R07.89 Other chest pain Other chest pain Diagnosis 12/08/2019 04 :01:47 PM EDT [facility] I44.7 Left bundle-branch block, unspecified Le ft bundle-branch block, unspecified Diagnosis 12/08/2019 04:01:47 PM EDT [facility] Z95.0 Presence of cardiac pacemaker Presence of cardiac pace maker Diagnosis 12/08/2019 04:01:47 PM EDT [facility] Z98.61 Coronary angioplasty status Coronary angioplasty statu s Diagnosis 12/08/2019 04:01:47 PM EDT [facility] I25.10 Atherosclerotic heart diseas e of [place] coronary artery without angina pectoris Atherosclerotic heart disease of [place] Diagnosis 04/04/2019 12:07:45 PM EST [facility] Surgeries/Procedures Procedure Description Date Indications Data Source(s) CT, cervical spine, w/o contrast 06/17/2019 12:00:00 A M EDT JS ([facility]) US URINE CAPACITY MEASURE 04/29/2019 12:00:00 AM EST eCW1 ([facility]) URINE-NO MICRO 04/29/2019 12:00:00 AM EST eCW1 ([facility]) Results ID Date Data Source [id number] 04/20/2020 02:52:50 PM EST [facility] Hospital Name Value Range Interpretation Code Description Data Brooke rce(s) Supporting Document(s) Progress Note [facility] [id number] [facility] [file] [id number] ID Date Data Source [id number] 01/13/2020 02:24:49 PM [facility] Name Value Range Interpretation Code Description Data Brooke rce(s) Supporting Document(s) Progress Note [facility] [id number] lbm [file] [id number] ID Date Data Source [id number] 11/19/2019 04:23:23 PM EDT [facility] Measurements & CalculationsHeight: 65 inches (5 ft. 5 in.) 165.10 cm Weight: 145 pounds 3 oz. 66.00 kg Body Mass Index (BMI): 24.25BMI Interpretation: Healthy WeightBody Surface Area (BSA): 1.73Weight Management Education Done (Nutrition/Physical Activity)Vital SignsTemperature: 98.3F tympanic Pulse Rate: 106 beats/minuteRespiratory Rate: 18 respirations/minuteBlood Pressure: 133/89 right arm sitting automaticO2 Saturation: 97% room airVital Signs performed by: Yassine Bay LPN, November 19, 2019 4:38 PMInitial Intake Information From: patientRoom #: 14Infectious Disease / Travel ScreeningRecent travel for you or any close contacts? NoHave you had any close contact with anyone diagnosed with or under investigation for COVID-19 (coronavirus)? NoFever? NoRespiratory symptoms: cough, cold, congestion, shortness of breath, difficulty breathing? NoLoss of smell? NoLoss of taste? No Smoking, Tobacco, Vaping or Smoke Exposure StatusSmoke Status: never smokerTobacco Use: NoDo you vape? NoHealthcare HistorySince your last office visit...Have you been admitted to the hospital? NoHave you been to an emergency room (ER) or urgent care clinic? NoHave you seen another healthcare provider? Yes - pain managment, cardioHave you seen a dentist? NoIntake performed by: Yassine Bay LPN, November 19, 2019 4:28 PMRate Your HealthIn general, would you say your health is? FairPain AssessmentAre you currently having any pain which... You would like your provider to address? Yes Affects your activity level? YesDepression Screening - PHQ-2Over the last two weeks, have you... Had little interest or pleasure in doing things? Not at all Been feeling down, depressed, or hopeless? Not at all PHQ-2 Score: 0Anxiety Screening - ROSARIO-2Over the last two weeks, have you been... Feeling nervous, anxious, or on edge? Nearly every day Unable to stop or control worrying? Nearly every day ROSARIO-2 Score: 6Generalized Anxiety Disorder 7-Item Screening (ROSARIO-7)Answer Guide:0 = Not at all1 = Several days2 = Over half the days3 = Nearly every dayOver the last 2 weeks, how often have you been bothered by the following problems?Feeling nervous, anxious, or on edge: 3Not being able to stop or control worryinWorrying too much about different things: 2Trouble relaxinBeing so restless that it's hard to sit still: 3Becoming easily annoyed or irritable: 3Feeling afraid as if something awful might happen: 3Answer Guide:0 = Not difficult at all1 = Somewhat difficult2 = Very difficult3 = Extremely difficultHow difficult have these made it for you to do your work, take care of things at home, or get along with other people? 2GAD-7 Screening Results ROSARIO-2 Score: 6GAD-7 Score: 20Functional Impairment: Very difficultRecommendation: Severe anxietyPain AssessmentPain ScaleNumeric Rating Scale: 8 / 10Location: back Duration: chronicFrequency: DailyCharacter/Quality: burning and throbbingIs the pain radiating? NoScreening, Brief Intervention, & Referral to Treatment (SBIRT)Pre-Screening Questions How many times have you have 5 or more drinks in a day? 0How many times have you used an illegal drug or used a prescription medication for a non-medical reason? 365Performed by: Yassine Bay LPN, November 19, 2019 4:32 PMDAST Have you used drugs other than those required for medical reasons? Yes Do you abuse more than one drug at a time? No Are you always able to stop using drugs when you want to? Yes Have you ever had blackouts or flashbacks as a result of drug use? No Do you ever feel bad or guilty about your drug use? No Does your spouse (or parents) ever complain about your involvement with your drugs? No Have you neglected your family because of your use of drugs? No Have you engaged in illegal activities in order to obtain drugs? No Have you ever experienced withdrawal symptoms (felt sick) when you stopped taking drugs? No Have you had medical problems as a result of your drug use (e.g. memory loss, hepatitis, convulsions, bleeding)? Anurag's Results: DAST Score: 1 DAST Interpretation: Brief Intervention Performed by: Yassine Bay LPN, November 19, 2019 4:35 PMPatient History Medical History:Anxiety DisorderBlood TransfusionsCoronary Heart DiseaseKidney Disease- Kidney Stone- 1979'sMyocardial Infarction: Surgical History:kidney surgeryRT an kleheart left branchtesticularpacemakerFamily History:Family History of AlcoholismADOPTEDSocial/Personal History:Smoking History:Patient has never smoked. Chief Complaintanx/dep F/U RM 14 History of Present Illness (HPI)No relief with Lexapro of anxiety.Has been seeing Cinthia here for counselling. Needs to schedule his next appointment while he is here today.Seeing neurologist and pain specialist for his chornic neck and back pain. He will have them send us records.Having a lot of stress. Going through the court system for felony assault.No thoughts of self harm.Wondering about getting a valium pres cription.HPI performed by: Nola Brower MD, November 19, 2019 4:52 PMTransitions of Care InboundProblem ReviewProblem List was reviewed and/or updated during this visit.Medication Reconciliation & ReviewMedication List was reviewed and/or updated during this visit, including review of any xcef-zez-bogxjvh medications, herbal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 are also continuing him on tizanidine and put him on 30 mg daily Duloxetine 2 weeks ago. Continued neck and left arm pain and numbness. Chronic and unchanged with time.Asking me again about disability. This is not something within my scope of practice so I think the ultimate decision should be up to the pain specialist, manager of case and neurologist, however I believe him to be partially and temporarily disabled. He would be fine for more or less sedentary work although there could probably be some standing and walking as part of it. 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 Cardiovascular: Denies chest pain, palpitations. Respiratory: Denies difficulty breathing, shortness of breath. Physical ExamGeneral Appearance: well nourished, well hydrated, no acute distressNeck: Moderately limited ROM due to pain.Respiratory, Auscultation: clear to auscultation bilaterally; no rales, rhonchi, or wheezesRespiratory, Effort: no intercostal retractions or use of accessory musclesCardiovascular, Auscultation: S1, S2 audible; no murmur, rub, or gallop; RRRGait & Station: normalUpper Extremity, Left: Moderately limited ROM left shoulder.Strength intact bilaterall upper extremities.Orientation: oriented to time, place, and personMood & Affect: no depression, anxiety, or agitationJudgment & Insight: intactCare Management Plan Transitions of CareInboundRate Your HealthIn general, would you say your health is? 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 Follow up asa scheduled with pain clinic. Continue current medications as prescribed by pain clnic. Waiting on results of CT scan done a few weeks ago. 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 Follow up asa scheduled with pain clinic. Continue current medications as prescribed by pain clnic. Waiting on results of CT scan done a few weeks ago. If there are issues that surgery miht help we will consider referral to Ortho.Chronic migraine without aura: Neurology consult pending.He will call if he does not hear within a week. Plan developed in collaboration with patient and/or familyMedication Changes:New Prescription:LISINOPRIL 20 MG ORAL TABLET-One tablet by mouth every day Qty: 30[Tablet] Refills: 2 Method: ElectronicOrders:Adult - Ofc Vst, EST, Level III [CPT-54413] Follow-Up Return to clinic: 1 month for follow upMedications:LISINOPRIL 20 MG ORAL TABLET (LISINOPRIL) One tablet by mouth every day #30[Tablet] x 2 Route:ORAL Entered and Authorized by: Nola Larkin MD Method used: Electronically to [facility]* ([facility]) [address] [place] [address] Note to Pharmacy: Route: ORAL; RxID: [id number] signed by Nola Brower MD on 07/25/2019 at 12:55 PM Name Value Range Interpretation Code Description Data Brooke rce(s) Supporting Document(s) ID Date Data Source [id number] 07/24/2019 03:35:31 PM EDT [facility] Name Value Range Interpretation Code Description Data Brooke rce(s) Supporting Document(s) &PDF [facility] FOHKTk4zRnFFBjWb92/UOCviLVOsr3OtLZvoNNq5ZTbuQPEwH3WhxNjaAAlIQWxUXpGPESaKP86UCMUD 0b3 [file] ICAgICAgICAgICAgICAgICAgICAgICAgICAgICAgICAgICAgICAgICAgICAgICAgICAgICAgICAgICAg ICAgICAgICAgICAgICAgICAgICAgICAgICAgICAgIC XyDVOtCW6SZFHaDGEjBIVxNWZaSPZaKZPgXNFoUSRiTEWqJCHbHWIoHNMxXTWqEXXeFDYlLLEpLODqMB KvRLEiQJDzEQGzGPBiLGTpKCChCSSjUQTgKZZoGABcTWKpJQQcMTQoHCJfOUDyHY1RGGFuNMUqQGJyPJ AgICAgICAgICAgICAgICAgICAgICAgICAgICAgICAg ZZOlBLYdNKUsRZDmYBCcBWBcFGYdUTUfOPMaCSAgTJNsDTAhFRGrKUZyKENuZVOnWVGqRLYhGVMjUK2T ICAgICAgICAgICAgICAgICAgICAgICAgICAgICAgICAgICAgICAgICAgICAgICAgICAgICAgICAgICAg ICAgICAgICAgICAgICAgICAgICAgICAgICAgICAgIC BbRDVeBMGpAD2OWBJdKPZrDFMpCLQsHJGpFCKvDRIwLEMvGDKaAZJbUNDqEIGvCEGdQHLlCRAjVVTzUO HbIHVpQFLxUSMqRKQyYQNiAYQlYMFpWXFgFLGcPDKkGRJpMAWlXLPgOLGrJZCcXRVkGQ9DEUJcJDIcVB AgICAgICAgICAgICAgICAgICAgICAgICAgICAgICAg ICAgICAgICAgICAgICAgICAgICAgICAgICAgICAgICAgICAgICAgICAgICAgICAgICAgICAgICAgICAg PF9AMQZgGOKmVBMtEIHjTWHdRLIyHVKeNWQwLXLaKQZiXPYrAXBlJDFvUFUcQCWwNTPlAYTiNCFlOVAb ICAgICAgICAgICAgICAgICAgICAgICAgICAgICAgIC PbKAJtTAEdNUDlCW1LUOTfKBHkBXFdLKPvPIYzLUUbPDBsLWQgQYUnCXGmEXCyFCObLLSmWIVxSVDbAA EmSIKbGPHuZNGxFBStSEMxLFVqHNQgCQOgHZUqTMViUCDzFDErEIWoIKHcXSQoHKFzSTKqOI1FYFDiTZ AgICAgICAgICAgICAgICAgICAgICAgICAgICAgICAg ICAgICAgICAgICAgICAgICAgICAgICAgICAgICAgICAgICAgICAgICAgICAgICAgICAgICAgICAgICAg QOMwFV0VFYBeEWKzERGmTVIeQKYdYQQzEUVjOZXuTVWvFVDhHWZmLUAbNWKdIJTeLEOiJMTzERHoNLSe ICAgICAgICAgICAgICAgICAgICAgICAgICAgICAgIC ItBTCmWNDhPVHoMJOkBE7RNX10uWLfx2O1IMGrME2hzre/Rm2ZUFxkpoYwhBKlGP3FUeHhAX1uel1EKi IlQX3vgv3JFEuJQqNuQ8M8xOLyKIHeWINGJxPsX06dFUjeMb04QExfYGBeCgFmSPh1Ps0NWlObC2kjTH TnFjQ8HIXkImYkORfxPH2Dz3PneCOcEQs+Rx9BJJ0s b6TrVMqhAkNoTI5vfo6XWOiBDxLnE6Z2kXNwU2L5BIewOc5EDCQkWJVpBDQiNLUHKYnsAU0GNH4jqdV9 SS8CkIScBSZeNANfoSRzJPx1Z73seOUtXWtuEO4AJEA+Magnolia+Aq5GOCDbNIQdJIFdZtOnLIZKKpPmP28w nPGbYFBmNCQ0MDRaBz1DDIGjQ0MmotLmmOlujaBfBN GcAMQCJQ9XNAjlfnAblQLtrXxvVQ14pQyjNH2GLz4HRbCoKK5rhn6HeFAzJl2SGUVnWq0WQLVtZLLuNB DjKYH8OOFqPyEeOXslGMLdMPTzCKH6WYXkLOBgUL1ZVuXeHVElBTN8XigcUSUgUVBaxy7DRJScCBEjJi M9RGTdDHOjSOWaCZzfMRQwWGDrFXf3ZEJaAGSoUH7T AgBiHIFgTNU7NYkfTKNrRDSjkb1BQZDmIBJlUhQyNuOdRBKmYIMwWSnbBEEvUNL4WDfxXYEtYAFoIH8B WzVgKHTrTJBbPjkxCLPeVLLvpt4DHOTcTZHvCIV0CFAxDLIqUIQdYYwdXOVbGUZ1ZCC5RDNyMAVjEL9F LiDuGUCcUKY1AGqoXZIgNRKcpg9EVAJtNCLgIHqsAX TiEFCwVJMtUDhpQLFuIKHjDDb4GMRrZUSrYN1CStBfZJRoCCF5PLWwPPRkVRQhup0ILOCuMWWcICcnZV UwYJHmFTXpKJivCPMbYIH1EjO2RSWpPTAqIE2FYgQxNOgtFXOPNmf0CDzkQ3v0RMBrIg4RI6Bji6KoNN BaCXSUTHnxLI3zloSbRQHoNr4FE7zPKmrwGZMdTIHy N5KbOzBnVGi6CBj8GoZuSwHuEiRgTsM7Sw9yPWL7FmSkSaH5HsH2WfU2Oaw6KHqlImSnBOZ0FPDkMakf KeSwVR4OBb4QEiF8MVK3lZYdIs2LOMP1UTALEaIhQI0MBPk= ID Date Data Source [id number] 06/20/2019 12:00:00 AM EDT [facility] Babatunde Estevez MD Patient Name: NOLA [id number] Date of : 1965[address] Date of Exam: 06/20/2019JOSE Briceño [id number]#: Fax: [phone] EXAM: CT CERVICAL SPINE WITHOUT CONTRASTCLINICAL INFORMATION: Injury two years ago. Neck pain.Comparison MRI [facility] 02/18/2015.There is no fracture or dislocation. Vertebral bodies are normal in heightand are well aligned with normal cervical lordosis. There is noprevertebral soft tissue swelling. There is mild spurring and disc spacenarrowing at C4-5.At C2-3, there is no significant disc bulging or herniation identified.There is no spinal stenosis or foraminal narrowing.At C3-4, there is slight diffuse disc bulging. There is minimaluncovertebral spurring. There is no spinal stenosis or foraminal narrowingat this level.At C4-5, there is mild diffuse disc bulging with uncovertebral spurring.There is mild facet spurring on the right. There is mild right-sidedforaminal narrowing at this level. There is no spinal stenosis.At C5-6, there is mild diffuse disc bulging and uncovertebral spurring.There is no cord compression. There is mild right-sided facet spurring.There is mild right- sided foraminal narrowing.At C6-7, there mild diffuse disc bulging and uncovertebral spurring. Thereis no spinal stenosis. There does not appear to be significant foraminalnarrowing.IMPRESSION:Cervical spondylosis at the C3-4 through C6-7 levels as discussed abovewithout evidence of spinal cord compression. Mild spurring and disc spacenarrowing at C4-5.Accredited by the [employer] [employer] in [place].HUMBERTO Romero/Ting you for referring NOLA LA to our office. Electronically Signed - ELIUD IZQUIERDO MD 06/20/19 16:57 Name Value Range Interpretation Code Description Data Brooke rce(s) Supporting Document(s) ID Date Data Source [id number] 06/11/2019 02:36:22 PM EDT [facility] Measurements & CalculationsHeight: 65 inches (5 ft. 5 in.) 165.10 cm Weight: 150 pounds 68.18 kg Body Mass Index (BMI): 25.05BMI Interpretation: OverweightBody Surface Area (BSA): 1.75Weight Management Education Done (Nutrition/Physical Activity)Vital SignsTemperature: 97.5F oral Pulse Rate: 92 beats/minuteRespiratory Rate: 20 respirations/minuteBlood Pressure: 149/82 right arm sitting automaticO2 Saturation: 97% room air sittingVital Signs performed by: Markus Pascual MA, June 11, 2019 2:42 PMInitial Intake Information from: ptRoom #: 1Smoking, Tobacco, Vaping or Smoke Exposure StatusSmoke Status: never smokerDo you vape? NoPassive Smoke Exposure: NoHealthcare HistorySince your last office visit...Have you been admitted to the hospital? NoHave you been to an emergency room (ER) or urgent care clinic? NoHave you seen another healthcare provider? NoHave you seen a dentist? NoIntake performed by: Markus Pascual MA, June 11, 2019 2:40 PMRate Your HealthIn general, would you say your health is? FairPain AssessmentAre you currently having any pain which... You would like your provider to address? Yes Affects your activity level? YesDepression Screening - PHQ-2Over the last two weeks, have you... Had little interest or pleasure in doing things? Not at all Been feeling down, depressed, or hopeless? Not at all PHQ-2 Score: 0Anxiety Screening - ROSARIO-2Over the last two weeks, have you been... Feeling nervous, anxious, or on edge? Not at all Unable to stop or control worrying? Not at all ROSARIO-2 Score: 0Infectious Disease / Travel ScreeningRecent travel for you or any close contacts? NoHave you had any close contact with anyone diagnosed with or under investigation for COVID-19 (coronavirus)? NoHave you had any of the following symptoms recently? Fever? NoRespiratory symptoms: cough, cold, congestion, shortness of breath, difficulty breathing? NoPain AssessmentPain ScaleNumeric Rating Scale: 8 / 10Location: lower back and eyeCharacter/Quality: throbbing and pinchingIs the pain radiating? YesPRAPARE Sociodemographic Characteristics Race: White Ethnicity: Not or Preferred Language: EnglishFamily and Home Address: [address] [place] [address] What is your housing situation today? I have housing Are you worried about losing your housing? NoMoney and Resources What is the highest level of school that you have finished? high school graduate Employed? No Insurance: Managed Care - [facility] Community PlanIn the past year, have you or any family members you live with been unable to get any of the following when it was really needed? Denies Insecurity: food, utilities, clothing, children's zoo caretaker, phone, legal services, otherIn the past year, have you had trouble affording costs associated with health insurance (such as deductibles, co-payments, etc.)? NoScreening, Brief Intervention, & Referral to Treatment (SBIRT)Pre-Screening Questions How many times have you have 5 or more drinks in a day? 0How many times have you used an illegal drug or used a prescription medication for a non-medical reason? 0Performed by: Markus Pascual MA, June 11, 2019 2:43 PMPatient History Medical History:Anxiety DisorderBlood TransfusionsCoronary Heart DiseaseKidney Disease- Kidney Stone- sMyocardial Infarction: Surgical History:kidney surgeryRT ankleheart left branchtesticularpacemakerSocial/Personal History: Chief ComplaintNew PEHistory of Present Illness (HPI)pt is here today to re establish care. pt now has aq pacemaker. pt states he has been on so many different medications since september 2018. pt states the MD from [facility] was not seeing him but kept changing medications. while pt lived in [facility] they put in a pace maker. pt states he has pain behind his eye and his back. pt states. he has a pinched nerve in his neck and it rubs on the optial nerve on his eye. pt states if he turns his head to a certain degree there is a migraine headache from the inside out on the left side of his head. pt states he also thinks he has gout. he has pain in his toe that radiates up his leg on the left side.pt also has a blockage in his kidneys. he has a hard time going to the bathroom. pt states he sometimes goes two days without using the bathroom. pt states he will see urology sundayjune 15. It has been a while since he saw the neurologist here in town. Has not been taking any over the counter medications for the ehadaches. Was on gabapentin for the pain as well as Vicodin. Some unsteadiness on his feet on and off for a while. Falls on occasion. No change with time. 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 Records are unavailable today.Exploring possibly going on disability. The heart doctor apparently kept him out of work around the time of his PA. He is able to bathe, dress and feed himself. Lives with family who help take care of the cooking, cleaning and laundry. He spends a lot of day in bed because of the headaches. Brights lights bother him.Telemedicine visit with patient's location at [facility] and provider's location at offsite office. Additional person(s)participating in the visit: HPI performed by: Nola Brower MD, June 11, 2019 3:02 PMProblem ReviewProblem List was reviewed and/or updated during this visit.Medication Reconciliation & ReviewMedication List was reviewed and/or updated during this visit, including review of any tyir-ujw-mwmpdbo medications, herbal therapies, and/or supplements.Allergy ReviewAllergy List was reviewed and/or updated during this visit.Adult Preventive CareLabs/Meds/Other Counseling-Nutrition and Physical Activity:BMI Interpretation: Overweight (06/11/2019) Counseling: Done (06/11/2019) Physical Activity: Done (06/11/2019)Review of Systems General: Complains of see HPI, dizziness. Cardiovascular: Denies chest pain. Respiratory: Denies shortness of breath. Physical ExamGeneral Appearance: well nourished, well hydrated, no acute distressGait & Station: normalOrientation: oriented to time, place, and personMood & Affect: no depression, anxiety, or agitationJudgment & Insight: intactRate Your HealthIn general, would you say your health is? 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 Plan developed in collaboration with patient and/or familyMedications:ASPIRIN 81 MG ORAL TABLET DELAYED RELEASEMedication Changes:Added: ASPIRIN 81 MG ORAL TABLET DELAYED RELEASERemoved:LISINOPRIL 40 MG ORAL TABLET-1 pill po daily, HYDROCODONE-ACETAMINOPHEN 7.5-325 MG ORAL TABLET-1 pill po q 6hrs, prn pain. MDD 4., FLONASE ALLERGY RELIEF 50 MCG/ACT NASAL SUSPENSION-1 squirt each nostril bid, LIPITOR 80 MG ORAL TABLET-1 pill po dailyAllergies:PENICILLIN G PROCAINE (PENICILLIN G PROCAINE SUSP) (Critical)Orders:Pain Management Consult [CPT-15180] Adult - Ofc Vst, EST, Level III [CPT-67015] Telemedicine - Site Fee [CPT-Q3014] Name Value Range Interpretation Code Description Data Brooke rce(s) Supporting Document(s) Procedure Social History Code Duration Value Status Description Data Source(s ) Alcohol intake 04/20/2020 12:00:00 AM EST Ex-drinker (finding) comp leted Ex- drinker (finding) [facility] Tobacco use and exposure 04/20/2020 12:00:00 AM EST Never used co mpleted Never used [facility] Smoking 04/20/2020 12:00:00 AM EST Never smoker completed Never s [facility] Alcohol intake 01/13/2020 12:00:00 AM EST Ex-drinker (finding) comp leted Ex- drinker (finding) [facility] Vital Signs ID Date Data Source UNK Name Value Range Interpretation Code Description Data Source(s) Body height 65 [in_i] 65 [in_i] JS ([facility]) Body surface area Derived from formula 1.76 m2 1.76 m2 [facility] Body mass index (BMI) [Ratio] 22.7 kg/m2 22.7 k g/m2 [facility] Body height 67 [in_i] 67 [in_i] [facility] 5'7" Body weight 65.772 kg 65.772 kg [facility] Body weight 145.00 [lb_av] 145.00 [lb_av] MEDEN T ([facility]) Oxygen saturation in Arterial blood by Pulse oximetry 98 % 98 % [facility] Respiratory rate 16 /min 16 /min [facility] ( [facility] Body temperature 97.7 [degF] 97.7 [degF] MEDENT ([facility]) Heart rate 87 /min 87 /min [facility] ([facility]) Diastolic blood pressure 85 mm[Hg] 85 mm[Hg] MEDENT ([facility]) Systolic blood pressure 128 mm[Hg] 128 mm[Hg] M EDENT ([facility]) Body height 65 [in_i] 65 [in_i] JS ([facility]) Body height 65 [in_i] 65 [in_i] JS ([facility]) Body weight 2256 [oz_av] 2256 [oz_av] JS ([facility]) Systolic blood pressure 130 mm[Hg] 130 mm[Hg] A THENA ([facility]) Body height 65 [in_i] 65 [in_i] JS ([facility]) Diastolic blood pressure 93 mm[Hg] 93 mm[Hg] JS ([facility]) Body weight 2256 [oz_av] 2256 [oz_av] JS ([facility]) Systolic blood pressure 130 mm[Hg] 130 mm[Hg] A THENA ([facility]) Body height 65 [in_i] 65 [in_i] JS ([facility]) Diastolic blood pressure 93 mm[Hg] 93 mm[Hg] JS ([facility]) Systolic blood pressure 128 mm[Hg] 128 mm[Hg] A THENA ([facility]) Body height 67 [in_i] 67 [in_i] JS ([facility]) Diastolic blood pressure 81 mm[Hg] 81 mm[Hg] JS ([facility]) Systolic blood pressure 128 mm[Hg] 128 mm[Hg] A THENA ([facility]) Body height 67 [in_i] 67 [in_i] JS ([facility]) Diastolic blood pressure 81 mm[Hg] 81 mm[Hg] JS ([facility]) Body weight 2259.2 [oz_av] 2259.2 [oz_av] ATHEN A ([facility]) Systolic blood pressure 110 mm[Hg] 110 [facility] Body height 65 [in_i] 65 [in_i] JS ([facility]) Diastolic blood pressure 77 mm[Hg] 77 mm[Hg] JS ([facility]) Body weight 2259.2 [oz_av] 2259.2 [oz_av] ATHEN A ([facility]) Systolic blood pressure 110 mm[Hg] 110 mm[Hg] A THENA ([facility]) Body height 65 [in_i] 65 [in_i] JS ([facility]) Diastolic blood pressure 77 mm[Hg] 77 mm[Hg] JS ([facility]) Body weight 2300.8 [oz_av] 2300.8 [oz_av] ATHEN A ([facility]) Systolic blood pressure 159 mm[Hg] 159 mm[Hg] A THENA ([facility]) Body height 65 [in_i] 65 [in_i] JS ([facility]) Diastolic blood pressure 100 mm[Hg] 100 mm[Hg] JS ([facility]) Body weight 2300.8 [oz_av] 2300.8 [oz_av] ATHEN A ([facility]) Systolic blood pressure 159 mm[Hg] 159 mm[Hg] A THENA ([facility]) Body height 65 [in_i] 65 [in_i] JS ([facility]) Diastolic blood pressure 100 mm[Hg] 100 mm[Hg] JS ([facility]) Body weight 146 [lb_av] 146 [lb_av] JS ([facility]) Systolic blood pressure 139 mm[Hg] 139 mm[Hg] A THENA ([facility]) Body mass index (BMI) [Ratio] 22.9 kg/m2 22.9 k g/m2 JS ([facility]) Body height 67 [in_i] 67 [in_i] JS ([facility]) Diastolic blood pressure 89 mm[Hg] 89 mm[Hg] JS ([facility]) Body weight 146 [lb_av] 146 [lb_av] JS ([facility]) Systolic blood pressure 139 mm[Hg] 139 mm[Hg] A THENA ([facility]) Body mass index (BMI) [Ratio] 22.9 kg/m2 22.9 k g/m2 JS ([facility]) Body height 67 [in_i] 67 [in_i] JS ([facility]) Diastolic blood pressure 89 mm[Hg] 89 mm[Hg] JS ([facility]) Body weight 146 [lb_av] 146 [lb_av] JS ([facility]) Systolic blood pressure 139 mm[Hg] 139 mm[Hg] A THENA ([facility]) Body mass index (BMI) [Ratio] 22.9 kg/m2 22.9 k g/m2 JS ([facility]) Body height 67 [in_i] 67 [in_i] JS ([facility]) Diastolic blood pressure 89 mm[Hg] 89 mm[Hg] JS ([facility]) Body weight 146 [lb_av] 146 [lb_av] JS ([facility]) Systolic blood pressure 139 mm[Hg] 139 mm[Hg] A THENA ([facility]) Body mass index (BMI) [Ratio] 22.9 kg/m2 22.9 k g/m2 JS ([facility]) Body height 67 [in_i] 67 [in_i] JS ([facility]) Diastolic blood pressure 89 mm[Hg] 89 mm[Hg] JS ([facility]) Body weight 146 [lb_av] 146 [lb_av] JS ([facility]) Systolic blood pressure 140 mm[Hg] 140 mm[Hg] A THENA ([facility]) Body mass index (BMI) [Ratio] 22.9 kg/m2 22.9 k g/m2 JS ([facility]) Body height 67 [in_i] 67 [in_i] JS ([facility]) Diastolic blood pressure 85 mm[Hg] 85 mm[Hg] JS ([facility]) Body weight 146 [lb_av] 146 [lb_av] JS ([facility]) Systolic blood pressure 140 mm[Hg] 140 mm[Hg] A THENA ([facility]) Body mass index (BMI) [Ratio] 22.9 kg/m2 22.9 k g/m2 JS ([facility]) Body height 67 [in_i] 67 [in_i] JS ([facility]) Diastolic blood pressure 85 mm[Hg] 85 mm[Hg] JS ([facility]) Body weight 146 [lb_av] 146 [lb_av] JS ([facility]) Systolic blood pressure 140 mm[Hg] 140 mm[Hg] A THENA ([facility]) Body mass index (BMI) [Ratio] 22.9 kg/m2 22.9 k g/m2 JS ([facility]) Body height 67 [in_i] 67 [in_i] JS ([facility]) Diastolic blood pressure 85 mm[Hg] 85 mm[Hg] JS ([facility]) Body weight 146 [lb_av] 146 [lb_av] JS ([facility]) Systolic blood pressure 140 mm[Hg] 140 mm[Hg] A THENA ([facility]) Body mass index (BMI) [Ratio] 22.9 kg/m2 22.9 k g/m2 JS ([facility]) Body height 67 [in_i] 67 [in_i] JS ([facility]) Diastolic blood pressure 85 mm[Hg] 85 mm[Hg] JS ([facility]) Body weight 146 [lb_av] 146 [lb_av] JS ([facility]) Systolic blood pressure 140 mm[Hg] 140 mm[Hg] A THENA ([facility]) Body mass index (BMI) [Ratio] 22.9 kg/m2 22.9 k g/m2 JS ([facility]) Body height 67 [in_i] 67 [in_i] JS ([facility]) Diastolic blood pressure 85 mm[Hg] 85 mm[Hg] JS ([facility]) Body weight 2400 [oz_av] 2400 [oz_av] JS ([facility]) Systolic blood pressure 149 mm[Hg] 149 mm[Hg] A THENA ([facility]) Body height 65 [in_i] 65 [in_i] JS ([facility]) Diastolic blood pressure 82 mm[Hg] 82 mm[Hg] JS ([facility]) Body weight 2400 [oz_av] 2400 [oz_av] JS ([facility]) Systolic blood pressure 149 mm[Hg] 149 mm[Hg] [facility] Body height 65 [in_i] 65 [in_i] JS ([facility]) Diastolic blood pressure 82 mm[Hg] 82 mm[Hg] JS ([facility]) Heart rate 89 /min 89 /min W1 ([facility]) Body mass index (BMI) [Ratio] 21.80 kg/m2 21.80 kg/m2 eCW1 ([facility]) Body height 67 [in_us] 67 [in_us] eCW1 ([facility]) Body weight Measured 139.2 [lb_av] 139.2 [lb_av ] eCW1 ([facility]) Diastolic blood pressure 78 mm[Hg] 78 mm[Hg] eCW1 ([facility]) Systolic blood pressure 124 mm[Hg] 124 mm[Hg] e CW1 ([facility]) Body temperature 96.7 [degF] 96.7 [degF] eCW1 ( [facility]) Respiratory rate 18 /min 18 /min eCW1 ([facility]) ID Date Data Source [id number] 04/20/2020 02:52:50 PM EST [facility] Name Value Range Interpretation Code Description Data Source(s) WEIGHT RECORDED 160 lb 160 lb [facility] Body height Measured 67 in 67 in [facility] ID Date Data Source [id number] 01/13/2020 03:54:48 PM EST [facility] Value Range Interpretation Code Description Data Source(s) WEIGHT RECORDED 150 lb 150 lb [facility] Body height Measured 66 in 66 in [facility] ID Date Data Source [id number] 10/13/2019 03:00:48 PM EDT [facility] Value Range Interpretation Code Description Data Source(s) WEIGHT RECORDED 155 lb 155 lb [facility] Body height Measured 66 in 66 in [facility] Patient Treatment Plan of Care Planned Activity Planned Date Details Description Data Source (s) Tamsulosin hydrochloride 0.4 MG Oral Capsule 04/29/2019 12:00:00 AM EST eCW1 ([facility]) atorvastatin 80 MG Oral Tablet [facility] Fluticasone Propionate 50 MCG/ACT Nasal Suspension (FLONASE) [facility] Acetaminophen 325 MG / Hydrocodone Bitartrate 7.5 MG Oral Tablet [facility] Lisinopril 40 MG Oral Tablet [facility]
--- OUTSIDE RECORDS SUMMARY | 2020-04-26 08:45 | CCD ---
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 rce(s) Supporting Document(s) Progress Note [facility] LLJDZi1kMdVAKcRj86/INHbqGUShn8KnJHweDOi3ZImgSRGyS5PfQQD8gS8eLVU0CVeWGeDaBzMwSCIv [facility] [file] ICAgICAgICAgICAgICAgICAgICAgICAgICAgICAgICAgICAgICAgICAgICAgICAgICAgICAgICAgICAg ICAgICAgICAgICAgICAgICAgICAgICAgICAgICAgIC DiTVFmKPZhKF4GXNCdXNTvKXKtHGGwYIVhEAWsPXSpNLZgWCWwQGAsEHPiTJYbJGTwVDZiIZEsVVUnUV NiZJTkLFBrTSDpUHTgQSFnFOKvYPOaKUPaJJApWFVhSYDoMHZySLYgFSXvPDGcVVWeIP7QMSQfBHYqQO AgICAgICAgICAgICAgICAgICAgICAgICAgICAgICAg ICAgICAgICAgICAgICAgICAgICAgICAgICAgICAgICAgICAgICAgICAgICAgICAgICAgICAgICAgICAg JP7VCAZyGEJkYURwTSKkDWCiNWNlLPHiYLDtXWXuGSDhLAHzVWRhGXMyRPAiWLWkGXSjOEDzICOiIAVk ICAgICAgICAgICAgICAgICAgICAgICAgICAgICAgIC VsSSUjWOHjEIUzTY8FPDWiZHTgMLFuAHGwCXDwRIYcKBHoISOlEXNiNSIrZJKnDFYkHJEpFFFcZFEmFA SqCSBmUQAiSSFcHMKyFFApGVFdDCOsRSPmGHVqEBRpODLvBUTiMHPoSNDgITGyRTTaZIJpSF4IIEHzJM AgICAgICAgICAgICAgICAgICAgICAgICAgICAgICAg ICAgICAgICAgICAgICAgICAgICAgICAgICAgICAgICAgICAgICAgICAgICAgICAgICAgICAgICAgICAg WKGdLC9SKSVeBULwHQZbZDNuCMLtLEVsLBNmQHXaZNIdKHPgPINwHIJwORWaARWxYZBkCTXkBERtGEEt ICAgICAgICAgICAgICAgICAgICAgICAgICAgICAgIC MhFQKzSCTcGLGgJEWmER7EQZJnPQTzVYOmFGPqWWKiRDKbZKEjKGRlQZLoNESzEGFiOJEbANOvDAMuYC OaNWUfFXNdJVHvIWOjPPDhJUZmBWJmBBNzGGJaZBTsPGEwPFHsJAUlWGCsDJJuFRTcXVJtBFQoUN8MIQ AgICAgICAgICAgICAgICAgICAgICAgICAgICAgICAg ICAgICAgICAgICAgICAgICAgICAgICAgICAgICAgICAgICAgICAgICAgICAgICAgICAgICAgICAgICAg KTRxHXTdQW5MDLQfDDHvKUQaANPpDFCaQRAvSCPkVWXjCRZeAXIaYTGiDKViQBUhHALlBXNoSJKaHSAw ICAgICAgICAgICAgICAgICAgICAgICAgICAgICAgIC JsHDOiVCWaRWLwBRAuTNLgNQ3TIA39xRAiw3R1VQEcQI8hcke/Tj2VNXcufnKkpOOaJO2IBoQqGX1slj 0RIaQiTE8zwz2DKBsIKnPnY3K5rUSgKKXzXCSKAyRuV95fSFzsNp20QCsvPUAhDgTbRBk0Bg6LByBwS6 onXAUiYbM1JTWjMjD9VTMuBcE6KRWmJsJkBBZsYDYr IL0GEVUnL825hrIoST6AFu4PXuNiOL0gdq3URyujKRHeWscXUjr0MBjaIJ8EyJQcxUOeZSNoURWIHrAu R6wql2NmUghnBXZTHRepYX5Yb8NslPVsYBj+Fd6DSL1rl9YvLSkbUAIyKS6jai0JFMwRCxJhY5JgtJti CRKbp7onYWBiTM2faPOeRNS9ZNX9u2EsSTNwwVPzfu srNHQzVAGsBE8iUZ1iFLGnNYPeXnAjGXUFTG4LOCYpCUCenVEjNSQrNBKGYB5NOAfqWJN9GKNuulNbdY FvWGpcGX8MYFSaacPuLzekCLKFXJu+Tt9UNO3dq1SuUKyaLQCsLE8kfd5JXZeNIfDhL8O0lJRgB9V0BL wnBf3WJFIfVIHzJlPrVESKNOtjDT1LRG9rpsM8CT0Q dSGpIRXgCTLtvHYoMHh5B90xeKLiSBycNU6LLNL+Magnolia+Ow6TBFRqSJOiVLGiGeItKEAWWqEvO3RlQ5BR i8GzJ6SlDH86lJryfyOkQVavSO3ZFI0aMVWnLNKJMT1SmULhkG3xpjFwMUFbBXPDYzItH45feZCrAHJb MHD8BXIiOb4ECECuS4MthcPxpThsivClTTZiZSUAQQ 4SPNlajgVvfVYvqYjpHX07aVxxBD7QVi5VKdHeNT7tks3KeWGcLl0OCAMyOT8SNPUhQMWhXWZpJML1HU SlGgCuIDzzQLKoARXjIZG7WJTgZMWiRA8CAqErBZDwRhG2MSetIZPdMULggi6SZVCqIZKuQKQ5CjEsQS YlMYCdNOabNNFsLGMyLKP9TGZtPFVhGI3ZSrDiSVCh UJK6EMukQCDjLCJchc5UAWYzPPDzYkj1VaLoEXLjXBLrNIghSTSiRSB7ASCdXSHyTRHrLT7JIsRuSQWe LRJlSUJyGOWmHKGbwn9JHQDrXSQgRWP4XpLhIPElWDRhFTubZDDaIUL7QHUdPDBfPPAsHQ5WEaMiETBn RIOxCMKuCPJcOSGoku0CARLjSPKiVRM9VKKyJFUxUD NqEXmlMQOwOCVdChYvSCPfXLIuAJ2DJbRnLPPrLBD2XLpzKKFiPZIlkq9HWONiJBVfSZZfBFMsTLFkEK WlCNoiUIVtFXSzPFv1SBLtQWDcEO7IJrGdIABaIGU7MNNrITQjPPWfhy4XANUsGRGzOcq7LOKeWRUoDB SgVQxcKCAlRVS7RWP6UPEmRKGgGZ2XEoOxPEYoPqZ9 FtZiRLBfZRCvws7WUPFyNAPgJLb1ZyBkKZAgOCBfNEtaNILeZVK4RZjwBAJgLQNkVT7JBgTsNLBcKpOt TuvsDPFeTDAuzg4LVWWsTQAfBjT6BiEbTCKkQFAwSGxkCOPcMRE3JNR5TBHgYVUfUF6ZTbYxBWUuPxP7 PkJxYYVyJTYtlp9ONIVqUGWbNhD5PgYtSVVnOHMqPK ntRQMwZON6UPM9VXSqFJOrOC7MPlImJUJaQcn2FDNiOGAqHPLmdw8DQMVeYZWbXHbfUhOdDAZaZKJfOO p6hoJtqZOkXHx9KL7DL7UqwyBzSbXKEt8Yo041JULpRUAbKj6DR9roUx9rSTEqZFMMKj6MNFp5HVCcVR EiTZUgTWF3NqNaNsUvSySqJ2KbGOJ5UNGlXOC+IDw0 PxE1VCY1DSK0AMUuGrYeZuKzDaDuDBLaAElqFRQ7FO5bMZPWTl0+JCnmnLDxlZtfTJPBCqN6RMdeKLdg APFEQk4S ID Date Data Source [id number] 09/26/2019 08:10:44 AM EDT [facility] Measurements & CalculationsHeight: 65 inches [...] during this visit, including review of any nwvw-zsz-nwkimmv medications, herbal therapies, and/or supplements.Allergy ReviewAllergy List [...] is? PoorAssessment & Plan Problems:Assessed:ANXIETY DISORDER (ICD-300.00) (KYB14-I26.9) Assessment: Instructions: Strugglng despite Cymbalta which is [...] (Critical)Orders:Adult - Ofc Vst, EST, Level III [CPT-29967] Medications:LEXAPRO 10 MG ORAL TABLET (ESCITALOPRAM OXALATE) One tablet by mouth every day Stop taking Cymbalta. #30[Tablet] x 2 Route:ORAL Entered and Authorized by: Nola Brower MD Method used: Electronically to [facility]* (retail) [address] [place] [address] Note to Pharmacy: Route: ORAL; RxID: [id number] signed by Nola Brower MD on 09/26/2019 at 8:37 AM Name Value Range Interpretation Code Description Data Brooke rce(s) Supporting Document(s) ID Date Data Source [id number] 08/25/2019 11:29:13 AM EDT [facility] Measurements & CalculationsHeight: 65 inches [...] during this visit, including review of any lela-dng-qktoigb medications, herbal therapies, and/or supplements.Allergy ReviewAllergy List was reviewed and/or updated during this visit.Adult Prev lenave CareProvider Calculated and Reviewed all Clinical Protocols for patient today. Labs/Meds/Other Counseling-Nutrition and Physical Activity:BMI Interpretation: Healthy Weight (08/25/2019) Counseling: Done (08/25/2019) Physical Activity: Done (08/25/2019)Cancer Screening ColonoscopyReviewed:Today's Comments: [facility] last year, will print report Review of [...] is? PoorAssessment & Plan Problems:Assessed:ANXIETY DISORDER (ICD-300.00) (OQA83-D62.9) Assessment: Instructions: Situational.Referring for in house counselling.Does [...] (Critical)Orders:Adult - Ofc Vst, EST, Level III [CPT-03935] Mental Health Consult [CPT-17351] Follow-Up Return to clinic: 1 month Name Value Range Interpretation Code Description Data Brooke rce(s) Supporting Document(s) ID Date Data Source [id number] 07/25/2019 09:37:14 AM EDT [facility] Measurements & CalculationsHeight: 65 inches [...] dentist? NoIntake performed by: Sharifa Beatty , July 25, 2019 9:41 AMRate Your HealthIn [...] should be up to the pain specialist, background investigator and neurologist, however I believe him to [...] health is? 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 Follow up asa scheduled with pain clinic. Continue current medications as prescribed by pain clnic. Waiting on results of CT scan done a few weeks ago. If there are issues that surgery miht help we will consider referral to Ortho.Chronic migraine without aura (ICD-346.70) (YZS78-W64.709) Assessment: Instructions: Neurology consult pending.He will call [...] ElectronicOrders:Adult - Ofc Vst, EST, Level III [CPT-47162] Follow-Up Return to clinic: 1 month for follow upMedications:LISINOPRIL 20 MG ORAL TABLET (LISINOPRIL) One tablet by mouth every day #30[Tablet] x 2 Route:ORAL Entered and Authorized by: Nola Larkin MD Method used: Electronically to [facility]* (retail) [address] [place] [address] Note to Pharmacy: Route: ORAL; RxID: [id number] signed by Nola Brower MD on 07/25/2019 at 12:55 PM Name Value Range Interpretation Code Description Data Brooke rce(s) Supporting Document(s) ID Date Data Source [id number] 07/24/2019 03:35:31 PM EDT [facility] Name Value Range Interpretation Code Description Data Brooke rce(s) Supporting Document(s) &PDF [facility] ANDQJl4oAjASRnSf59/DPCqhGKTee9JzTNfrMBz3NZloICYfC8QbmJozYRnSRVpRPgRZMTtDN96VDQYG 0b3 [file] ICAgICAgICAgICAgICAgICAgICAgICAgICAgICAgICAgICAgICAgICAgICAgICAgICAgICAgICAgICAg ICAgICAgICAgICAgICAgICAgICAgICAgICAgICAgIC NqKYRsOD3PVZNbLWQkKBKhYTTyOOZaDHNjABWiWNTlYTXqXZBjMBVtQVIzKUOdDLCmPJEqYKJkONMgBN YiWFMqUTYeRWEcSPFkWRPdJMSzKXEnVFOkRNImQZTkYXHrUQDiFMLpPCGuGAOaFD7FZOQoYGLrMTMpNP AgICAgICAgICAgICAgICAgICAgICAgICAgICAgICAg XRUlTLOzLMHtQOMeNYTxBFLbMCWoXNAfEHLfBVHfDRIpCJYrZOMdOWNlQJMhYPExMVAoGRGxUOGuVI4A ICAgICAgICAgICAgICAgICAgICAgICAgICAgICAgICAgICAgICAgICAgICAgICAgICAgICAgICAgICAg ICAgICAgICAgICAgICAgICAgICAgICAgICAgICAgIC IrHIQxUBBhQV8URBFjKYOqGPKkIXBlFXQjXUYfXOKvYBVmTLJqWMCmTJFmMMRdOMLgJXCmUPVbTSUfMC VsRJQsHLQeDRMsNUNcIBObLIGfHFQaPKMjMVOcDXPrSPUbVWEzDGTeKODxARYpEKBmBA3OIDJoLIZyHO AgICAgICAgICAgICAgICAgICAgICAgICAgICAgICAg ICAgICAgICAgICAgICAgICAgICAgICAgICAgICAgICAgICAgICAgICAgICAgICAgICAgICAgICAgICAg FT4TXAVhVONkJQJhJBHjVAGbDZUmVFYvYWPwNWMmIFIqAVDkSASlOSTdNBQbSJXdYDNnZIHvVSUzRSHb ICAgICAgICAgICAgICAgICAgICAgICAgICAgICAgIC QtAKTtOLHuEQJmSH1WWRKmBWLkKGLjWGYeANNpMOPsHHGnOMFbCPLmOIKvVRZnLIFoCBVsAANiEUOvJU KxQXJuAQPsBODdAVMuQMSuOOKrOTLrTQSaGAOgSHWwNPZdJKLnBDNhYBXjRCLwUAPeHVHaZP9BZALdDS AgICAgICAgICAgICAgICAgICAgICAgICAgICAgICAg ICAgICAgICAgICAgICAgICAgICAgICAgICAgICAgICAgICAgICAgICAgICAgICAgICAgICAgICAgICAg PQJjAP9BYUOzKMYiEVQvUHBqKRZeLLJdIOZeKWIvFUDpIQJpTKWyAOJhLDAyOMFfWOJdQVVuEWIlGNHd ICAgICAgICAgICAgICAgICAgICAgICAgICAgICAgIC DwOSGjTUElFQHvVAFiYM6NQP71oLVae5J2LFKfGW9xrej/Fx0QBEmmapRmpCByJM9GRyWuHP4vrs1XGr BnVW5cpf3FEAjATjDrC5R0zDZmIWDrXDWLSdIyB93gBDwgQt94ENczPAUgIzKrJXe9Ui4NGnEiV3bzVC OmEbY1HKDmSgJcNEcxEK1Hx0WmcLScDHc+Bn8NCL1f h6UgTVzfHkYwRU5dat9CMEwTZpEsQ5K4yMJtB6C6KMvgXg3YNYTjGNTsCVEoYZLJHVbwVT5UGP8kdcY4 QI3ApIGqWMSaRDVrgCVxLCl0C71kuCAeYDnfLD1RJSJ+Magnolia+Zh2ONMIeWNQaQRHlOlFnWMLYGrMkI61c vAIfOMMcMZE5KEOkBk5IWRJdL3EbbnNemQfhazHdSR IfTCXHKB1LVRrsmdQiuLOpuVgeHW10qPhgKE9FYv3ZDiIyWR7qwg4IuODzEm3JMNBnHl6NNSMzYRQzLI WzWKW9SIFkQfWwJMloLPXnZCZwADZ0VBUxUSHiCS2SIoFgPMWmGDV8WymuOKWdKIDfbs4KLFQwYOWmBj Q6ABLyFFKvYAXuUMrbNHZkOZPlTEa9SRMeANQvFC8G QdMmHEEhDNO2GEgjTBJjQKJzxl6RQSDwXHCoXpUcIgMxPLUbTQZhVLzqYQRjIFY2FJvqFUIxFTVlEF0K OtLjPLTtGWNsIdaiINEyNRIadn5UAPQrBGNkWGC1NHKxHEEnKGQfGKizAZLgPWI9CBI3XGFoQPYlAL4X PtAoOXNdLHJ6DNakZHIbEBCudm5ELTYtHVEiDWxrOJ SlTWGyWLLaZVizZTExOPNkSOa2KQAzZVPqUR9VNhJiAYOfLYX5EJLgDCOoKMDfnz3ZZOKuBRUyQEvbRI PrDMPbFCHlZEneFEVpQFU3GyA8YBMxDCZoLC7JVsNxVFyyLWFEWqs6EMbrE1t9BKBdAv8FW0Ohw6SwAA MlKAPTLMteHA2brcZcLGGgTu2BZ2lHCpsrBYSgXYFe L7KdBqCeWZv2JQs4RhGjSeXvLtGbOjQ1Iq6wHCQ4UwMfCaW2ZdF9GfJ9Wca6TQhyLzSqWFH4ZOSdWfri TjStZD5OBh6VPkO5RVR1fGGxLz9STCC6FEGGSmCxTE1QZLn= ID Date Data Source [id number] 06/20/2019 12:00:00 AM EDT [facility] Babatunde Estevez MD Patient Name: STEVENOLA [id number] Date of : 1965[address] Date of Exam: 06/20/2019JOSE Briceño [id number]#: Fax: [phone] EXAM: CT CERVICAL SPINE WITHOUT CONTRASTCLINICAL INFORMATION: Injury two years ago. Neck pain.Comparison MRI [facility] 02/18/2015.There is no fracture or dislocation. Vertebral [...] and disc spacenarrowing at C4-5.Accredited by the [employer] in [place].HUMBERTO Romero/Ting you for referring NOLA LA to our office. Electronically Signed - ELIUD IZQUIERDO MD 06/20/19 16:57 Name Value Range Interpretation Code Description Data Brooke rce(s) Supporting Document(s) ID Date Data Source [id number] 06/11/2019 02:36:22 PM EDT [facility] Measurements & CalculationsHeight: 65 inches [...] or Preferred Language: EnglishFamily and Home Address: [address] [place], [place] [address] What is your housing situation today? I have housing Are you worried about losing your housing? NoMoney and Resources What is the highest level of school that you have finished? high school graduate Employed? No Insurance: Managed Care - [facility] Community PlanIn the past year, have you or any family members you live with been unable to get any of the following when it was really needed? Denies Insecurity: food, utilities, clothing, child center assistant, phone, legal services, otherIn the past year, [...] september 2018. pt states the MD from [facility] was not seeing him but kept changing medications. while pt lived in [facility] [place] they put in a pace maker. pt [...] time. Has had injections into his neck.Seeing [facility] for what sounds like CAD with [place] well as dysrhythimia requiring a pacemaker. Records are unavailable today.Exploring possibly going on disability. The heart doctor apparently kept him out of work around the time of his VA. He is able to bathe, dress and feed himself. Lives with family who help take care of the cooking, cleaning and laundry. He spends a lot of day in bed because of the headaches. Brights lights bother him.Telemedicine visit with patient's location at [facility] and provider's location at offsite office. Additional person(s)participating in the visit: HPI performed by: Nola Brower MD, June 11, 2019 3:02 PMProblem ReviewProblem List was reviewed and/or updated during this visit.Medication Reconciliation & ReviewMedication List was reviewed and/or updated during this visit, including review of any alto-bbe-vjoayag medications, herbal therapies, and/or supplements.Allergy ReviewAllergy List [...] documented spasm (ICD-414.04) (ICD10- I25.721)Neck pain (ICD-723.1) (YTS73-V46.2) Assessment: Instructions: Chronic.REfer to [facility].Chronic migraine without aura (ICD-346.70) (MFN75-O56.709) Assessment: Instructions: Chronic and stable.Assessed:CORONARY HEART DISEASE (ICD-414.00) (NXG01-M11.10) Assessment: Instructions: Recheck with cardiology as scheduled.Patient [...] (PENICILLIN G PROCAINE SUSP) (Critical)Orders:Pain Management Consult [CPT-78134] Adult - Ofc Vst, EST, Level III [CPT-08094] Telemedicine - Site Fee [CPT-Q3014] Name Value Range Interpretation Code Description Data Brooke rce(s) Supporting Document(s) Procedure Social History Code Duration Value Status Description Data Source(s ) Alcohol intake 04/20/2020 12:00:00 AM EST Ex-drinker (finding) comp leted Ex- drinker (finding) [facility] Tobacco use and exposure 04/20/2020 12:00:00 AM EST Never used co mpleted Never used [facility] Smoking 04/20/2020 12:00:00 AM EST Never smoker completed Never s [facility] Alcohol intake 01/13/2020 12:00:00 AM EST Ex-drinker (finding) comp leted Ex- drinker (finding) [facility] Vital Signs ID Date Data Source UNK Name Value Range Interpretation Code Description Data Source(s) Body height 65 [in_i] 65 [in_i] JS ([facility]) Body surface area Derived from formula 1.76 m2 1.76 m2 [facility] ([facility]) Body mass index (BMI) [Ratio] 22.7 kg/m2 22.7 k g/m2 [facility] ([facility]) Body height 67 [in_i] 67 [in_i] [facility] ([facility]) 5'7" Body weight 65.772 kg 65.772 kg [facility] ([facility]) Body weight 145.00 [lb_av] 145.00 [lb_av] MEDEN T ([facility]) Oxygen saturation in Arterial blood by Pulse oximetry 98 % 98 % [facility] ([facility]) Respiratory rate 16 /min 16 /min [facility] ( [facility]) Body temperature 97.7 [degF] 97.7 [degF] [facility] ([facility]) Heart rate 87 /min 87 /min [facility] ([facility]) Diastolic blood pressure 85 mm[Hg] 85 mm[Hg] MEDENT ([facility]) Systolic blood pressure 128 mm[Hg] 128 mm[Hg] M EDENT ([facility]) Body height 65 [in_i] 65 [in_i] JS ([facility]) Body height 65 [in_i] 65 [in_i] JS ([facility]) Body weight 2256 [oz_av] 2256 [oz_av] JS ([facility]) Systolic blood pressure 130 mm[Hg] 130 mm[Hg] A THENA ([facility]) Body height 65 [in_i] 65 [in_i] JS ([facility]) Diastolic blood pressure 93 mm[Hg] 93 mm[Hg] JS ([facility]) Body weight 2256 [oz_av] 2256 [oz_av] JS ([facility]) Systolic blood pressure 130 mm[Hg] 130 mm[Hg] A THENA ([facility]) Body height 65 [in_i] 65 [in_i] JS ([facility]) Diastolic blood pressure 93 mm[Hg] 93 mm[Hg] JS ([facility]) Systolic blood pressure 128 mm[Hg] 128 mm[Hg] A THENA ([facility]) Body height 67 [in_i] 67 [in_i] JS ([facility]) Diastolic blood pressure 81 mm[Hg] 81 mm[Hg] JS ([facility]) Systolic blood pressure 128 mm[Hg] 128 mm[Hg] A THENA ([facility]) Body height 67 [in_i] 67 [in_i] JS ([facility]) Diastolic blood pressure 81 mm[Hg] 81 mm[Hg] JS ([facility]) Body weight 2259.2 [oz_av] 2259.2 [oz_av] ATHEN A ([facility]) Systolic blood pressure 110 mm[Hg] 110 mm[Hg] A THENA ([facility]) Body height 65 [in_i] 65 [in_i] JS ([facility]) Diastolic blood pressure 77 mm[Hg] 77 mm[Hg] JS ([facility]) Body weight 2259.2 [oz_av] 2259.2 [oz_av] ATHEN A ([facility]) Systolic blood pressure 110 mm[Hg] 110 mm[Hg] A THENA ([facility]) Body height 65 [in_i] 65 [in_i] JS ([facility]) Diastolic blood pressure 77 mm[Hg] 77 mm[Hg] JS ([facility]) Body weight 2300.8 [oz_av] 2300.8 [oz_av] ATHEN A ([facility]) Systolic blood pressure 159 mm[Hg] 159 mm[Hg] A THENA ([facility]) Body height 65 [in_i] 65 [in_i] JS ([facility]) Diastolic blood pressure 100 mm[Hg] 100 mm[Hg] JS ([facility]) Body weight 2300.8 [oz_av] 2300.8 [oz_av] ATHEN A ([facility]) Systolic blood pressure 159 mm[Hg] 159 mm[Hg] A THENA ([facility]) Body height 65 [in_i] 65 [in_i] JS ([facility]) Diastolic blood pressure 100 mm[Hg] 100 mm[Hg] JS ([facility]) Body weight 146 [lb_av] 146 [lb_av] JS ([facility]) Systolic blood pressure 139 mm[Hg] 139 mm[Hg] A THENA ([facility]) Body mass index (BMI) [Ratio] 22.9 kg/m2 22.9 k g/m2 JS ([facility]) Body height 67 [in_i] 67 [in_i] JS ([facility]) Diastolic blood pressure 89 mm[Hg] 89 mm[Hg] JS ([facility]) Body weight 146 [lb_av] 146 [lb_av] JS ([facility]) Systolic blood pressure 139 mm[Hg] 139 mm[Hg] A THENA ([facility]) Body mass index (BMI) [Ratio] 22.9 kg/m2 22.9 k g/m2 JS ([facility]) Body height 67 [in_i] 67 [in_i] JS ([facility]) Diastolic blood pressure 89 mm[Hg] 89 mm[Hg] JS ([facility]) Body weight 146 [lb_av] 146 [lb_av] JS ([facility]) Systolic blood pressure 139 mm[Hg] 139 mm[Hg] A THENA ([facility]) Body mass index (BMI) [Ratio] 22.9 kg/m2 22.9 k g/m2 JS ([facility]) Body height 67 [in_i] 67 [in_i] JS ([facility]) Diastolic blood pressure 89 mm[Hg] 89 mm[Hg] JS ([facility]) Body weight 146 [lb_av] 146 [lb_av] JS ([facility]) Systolic blood pressure 139 mm[Hg] 139 mm[Hg] A THENA ([facility]) Body mass index (BMI) [Ratio] 22.9 kg/m2 22.9 k g/m2 JS ([facility]) Body height 67 [in_i] 67 [in_i] JS ([facility]) Diastolic blood pressure 89 mm[Hg] 89 mm[Hg] JS ([facility]) Body weight 146 [lb_av] 146 [lb_av] JS ([facility]) Systolic blood pressure 140 mm[Hg] 140 mm[Hg] A THENA ([facility]) Body mass index (BMI) [Ratio] 22.9 kg/m2 22.9 k g/m2 JS ([facility]) Body height 67 [in_i] 67 [in_i] JS ([facility]) Diastolic blood pressure 85 mm[Hg] 85 mm[Hg] JS ([facility]) Body weight 146 [lb_av] 146 [lb_av] JS ([facility]) Systolic blood pressure 140 mm[Hg] 140 mm[Hg] A THENA ([facility]) Body mass index (BMI) [Ratio] 22.9 kg/m2 22.9 k g/m2 JS ([facility]) Body height 67 [in_i] 67 [in_i] JS ([facility]) Diastolic blood pressure 85 mm[Hg] 85 mm[Hg] JS ([facility]) Body weight 146 [lb_av] 146 [lb_av] JS ([facility]) Systolic blood pressure 140 mm[Hg] 140 mm[Hg] A THENA ([facility]) Body mass index (BMI) [Ratio] 22.9 kg/m2 22.9 k g/m2 JS ([facility]) Body height 67 [in_i] 67 [in_i] JS ([facility]) Diastolic blood pressure 85 mm[Hg] 85 mm[Hg] JS ([facility]) Body weight 146 [lb_av] 146 [lb_av] JS ([facility]) Systolic blood pressure 140 mm[Hg] 140 mm[Hg] A THENA ([facility]) Body mass index (BMI) [Ratio] 22.9 kg/m2 22.9 k g/m2 JS ([facility]) Body height 67 [in_i] 67 [in_i] JS ([facility]) Diastolic blood pressure 85 mm[Hg] 85 mm[Hg] JS ([facility]) Body weight 146 [lb_av] 146 [lb_av] JS ([facility]) Systolic blood pressure 140 mm[Hg] 140 mm[Hg] A THENA ([facility]) Body mass index (BMI) [Ratio] 22.9 kg/m2 22.9 k g/m2 JS ([facility]) Body height 67 [in_i] 67 [in_i] JS ([facility]) Diastolic blood pressure 85 mm[Hg] 85 mm[Hg] JS ([facility]) Body weight 2400 [oz_av] 2400 [oz_av] JS ([facility]) Systolic blood pressure 149 mm[Hg] 149 mm[Hg] A THENA ([facility]) Body height 65 [in_i] 65 [in_i] JS ([facility]) Diastolic blood pressure 82 mm[Hg] 82 mm[Hg] JS ([facility]) Body weight 2400 [oz_av] 2400 [oz_av] JS ([facility]) Systolic blood pressure 149 mm[Hg] 149 mm[Hg] A THENA ([facility]) Body height 65 [in_i] 65 [in_i] JS ([facility]) Diastolic blood pressure 82 mm[Hg] 82 mm[Hg] JS ([facility]) Heart rate 89 /min 89 /min [facility] ([facility]) Body mass index (BMI) [Ratio] 21.80 kg/m2 21.80 kg/m2 W1 ([facility]) Body height 67 [in_us] 67 [in_us] eCW1 ([facility]) Body weight Measured 139.2 [lb_av] 139.2 [lb_av ] eCW1 ([facility]) Diastolic blood pressure 78 mm[Hg] 78 mm[Hg] eCW1 ([facility]) Systolic blood pressure 124 mm[Hg] 124 mm[Hg] e CW1 ([facility]) Body temperature 96.7 [degF] 96.7 [degF] eCW1 ( [facility]) Respiratory rate 18 /min 18 /min eCW1 ([facility]) ID Date Data Source [id number] 04/20/2020 02:52:50 PM EST [facility] Name Value Range Interpretation Code Description Data Source(s) WEIGHT RECORDED 160 lb 160 lb [facility] Body height Measured 67 in 67 in [facility] ID Date Data Source [id number] 01/13/2020 03:54:48 PM EST [facility] Name Value Range Interpretation Code Description Data Source(s) WEIGHT RECORDED 150 lb 150 lb [facility] Body height Measured 66 in 66 in [facility] ID Date Data Source [id number] 10/13/2019 03:00:48 PM EDT [facility] Value Range Interpretation Code Description Data Source(s) WEIGHT RECORDED 155 lb 155 lb [facility] Body height Measured 66 in 66 in [facility] Patient Treatment Plan of Care Planned Activity Planned Date Details Description Data Source (s) Tamsulosin hydrochloride 0.4 MG Oral Capsule 04/29/2019 12:00:00 AM EST eCW1 ([facility]) atorvastatin 80 MG Oral Tablet [facility] Fluticasone Propionate 50 MCG/ACT Nasal Suspension (FLONASE) [facility] Acetaminophen 325 MG / Hydrocodone Bitartrate 7.5 MG Oral Tablet [facility] Lisinopril 40 MG Oral Tablet [facility]
[2020-04-26] MEDS ORDERED: LIDOCAINE 5% (LIDODERM) PATCH TD ONE (09:30)
[2020-04-26] MEDS ORDERED: CYCLOBENZAPRINE 5MG TABLET PO ONE (09:30)
[2020-04-26] MEDS ORDERED: ACETAMINOPHEN 500 MG TAB PO ONE (09:30)
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
[2020-04-26] MEDS ORDERED: CYCL5TAB PO (10:30)
[2020-04-26 10:40] VITALS: BP 149/93
[2020-04-26] MEDS ORDERED: **NOTE PATIENT COMMENT** MISC XX SCH (21:00)
== END 2020-04-26 10:41 | disposition home or self-care (01) ==
LOC: M ED 08:02
DX: M54.5 Low back pain (principal); M54.2 Cervicalgia; V49.10XA Passenger injured in collision with unspecified motor vehicles in nontraffic accident, initial encounter; M47.816 Spondylosis without myelopathy or radiculopathy, lumbar region; M47.812 Spondylosis without myelopathy or radiculopathy, cervical region; I25.2 Old myocardial infarction; Z95.5 Presence of coronary angioplasty implant and graft; F33.9 Major depressive disorder, recurrent, unspecified; F41.9 Anxiety disorder, unspecified; Z88.0 Allergy status to penicillin; Z79.82 Long term (current) use of aspirin

== ENCOUNTER 2020-07-14 11:47 | Emergency (ER) | payer OTHER ==
[~2020-07-14] VITALS: Ht 170.2 cm; Wt 68.8 kg
[~2020-07-14 11:47] MED LIST changes: +CYCL5TAB PO
[2020-07-14 13:39] LABS: BASO # 0.1 10^3/uL (0.0-0.2); EOS # 0.3 10^3/uL (0.0-0.5); EOS % 2.6 % (0.0-3.0); LYMPH # 2.7 10^3/uL (1.5-5.0); LYMPH % 26.6 % (24.0-44.0); MEAN CORPUSCULAR HEMOGLOBIN 29.6 pg (27.0-33.0); MEAN CORPUSCULAR HGB CONC 33.3 g/dl (32.0-36.5); MEAN CORPUSCULAR VOLUME 88.7 fl (80.0-96.0); MONO # 0.7 10^3/uL (0.0-0.8); MONO % 6.6 % (2.0-8.0); NEUTROPHILS # 6.3 10^3/uL (1.5-8.5); NEUTROPHILS % 62.7 % (36.0-66.0); PLATELET COUNT, AUTOMATED 364 10^3/uL (150-450); RED BLOOD COUNT 5.41 10^6/uL (4.30-6.10)
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
[2020-07-14 13:50] LABS: INR 0.98; PROTHROMBIN TIME 13.2 SECONDS (12.5-14.3)
[2020-07-14 13:52] LABS: D-DIMER QUANT 294.01 ng/ml (<500)
[2020-07-14 14:08] LABS: ALBUMIN 3.7 GM/DL (3.2-5.2); ALT/SGPT 48 U/L (12-78); BILIRUBIN,DIRECT < 0.1 MG/DL (0.0-0.2); BILIRUBIN,TOTAL 0.5 MG/DL (0.2-1.0); BLOOD UREA NITROGEN 9 MG/DL (7-18); CALCIUM LEVEL 9.7 MG/DL (8.5-10.1); CARBON DIOXIDE LEVEL 24 MEQ/L (21-32); CHLORIDE LEVEL 107 MEQ/L (98-107); CK-MB VALUE MASS 4.3 NG/ML (<3.6); CPK CREATINE PHOSPHOKINASE 215 U/L (39-308); CREATININE FOR GFR 0.74 MG/DL (0.70-1.30); GLOMERULAR FILTRATION RATE > 60.0 (>56); GLUCOSE, FASTING 94 MG/DL (70-100); NT-PRO BNP 897 PG/ML (<125); POTASSIUM SERUM 5.1 MEQ/L (3.5-5.1); SODIUM LEVEL 138 MEQ/L (136-145); TOTAL PROTEIN 7.2 GM/DL (6.4-8.2); TROPONIN I < 0.02 NG/ML (< 0.10)
[2020-07-14] MEDS ORDERED: ACETAMINOPHEN 500 MG TAB PO ONE (14:20)
[2020-07-14] MEDS ORDERED: METOCLOPRAMIDE INJ 10MG/2ML VIAL (J2765 PER 1) IV ONE (14:20)
[2020-07-14] MEDS ORDERED: diphenhydrAMINE 50MG/ML VIAL (J1200) IV ONE (14:20)
[2020-07-14 15:11] VITALS: BP 117/71
== END 2020-07-14 15:37 | disposition home or self-care (01) ==
LOC: M ED 11:47
DX: M54.2 Cervicalgia (principal); G89.29 Other chronic pain; R06.02 Shortness of breath; R51.9 Headache, unspecified; I25.2 Old myocardial infarction; E11.9 Type 2 diabetes mellitus without complications; I44.7 Left bundle-branch block, unspecified; Z79.82 Long term (current) use of aspirin; Z79.899 Other long term (current) drug therapy; Z88.0 Allergy status to penicillin; Z91.5 Personal history of self-harm; Z95.1 Presence of aortocoronary bypass graft; Z87.442 Personal history of urinary calculi; Z83.3 Family history of diabetes mellitus
CPT/HCPCS: 71045; 80048; 80076; 82550; 82553; 83880; 85025; 85379; 85610; 87798; 96374; 96375; 99284; J1200; J2765

== ENCOUNTER → 2020-07-23 | Outpatient (CLI) | payer OTHER ==
--- NOTE | 2020-07-26 23:58 | ECWPNPC ---
PATIENT NAME: NOLA NAVARRO : 1965 GENDER: MALE VISIT DATE: 07/23/2020 DISCHARGE DATE: 07/23/20 1539 VISIT LOCKED DATE TIME: PHYSICIAN: LAKISHA العراقي RESOURCE: LAKISHA العراقي REASON FOR APPOINTMENT 1. CERVICALGIA HISTORY OF PRESENT ILLNESS GENERAL: PLEASANT 55-YEAR-OLD GENTLEMAN BEING REFERRED BY [facility]ASH SNYDER ,[facility] TO EVALUATE PERSISTENT LEFT-SIDED HEAD AND NECK PAIN. DESCRIBES PAIN CONSTANT AND ENGULFING LEFT CRANIUM AND LEFT EYE REGION. ALSO HAS A HISTORY OF MIS AND TIA IN THE DISTANT PAST. 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 HAS SIGNIFICANT CARDIAC HISTORY WITH REPORTED MIS AND STENT PLACEMENTS. USING MEDICAL MARIJUANA FOR PAIN CONTROL. DISCUSSED INTERVENTIONAL TREATMENT OPTIONS TO INCLUDE CERVICAL EPIDURAL STEROID INJECTION AND TRIGGER POINT INJECTIONS. SIGNIFICANT OTHER ACCOMPANIES HIM IN ROOM TODAY. - - -. FALL RISK SCREENING: SCREENING ONE FALLS REPORTED IN THE LAST YEAR BROKE HIS LEG, 2 FALL THIS YEAR HURT THIS LEFT WRIST FOR ONE OF THE FALLS.. PAIN SCREENING: PATIENT HAS A COMPLAINT OF ACUTE OR CHRONIC PAIN :YES LOCATION OF PAIN:NECK LEFT SIDE OF FACE AND EYE INTENSITY OF PAIN (SCALE OF 1 TO 10):10 WHAT DOES YOUR PAIN FEEL LIKE:ACHING, CONTINOUS DURATION:CONTINOUS, CONSTANT, ALL DAY PAIN IS INCREASED BY:ACTIVITIES, OTHERS LIGHT PAIN IS DECREASED BY:OTHERS RESTING, DARK PLACE NURSING NOTE: - - -. PAIN CENTER INTAKE QUESTIONS: DO YOU HAVE A HISTORY OF MRSA? :NO DO YOU TAKE A BLOOD THINNERS? :NO ASPIRIN 81 MG DO YOU HAVE ANY BLEEDING DISORDERS? :NO ANY NEW NUMBNESS OR WEAKNESS IN YOUR LEGS OR ARMS? :NO ANY PACEMAKER,DEFIBRILLATOR, OR DORSAL COLUMN STIMULATOR? :NO DO YOU HAVE ANY RASHES OR OPEN SORES? :NO ARE YOU ALLERGIC TO IV DYE? :NO ARE YOU DIABETIC? :NO ANY NEW PROBLEMS WITH YOUR MEDICATIONS? :NO HAVE YOU RECEIVED A VACCINE IN THE PAST 30 DAYS? :YES 1ST 06/06/2020 DO YOU PLAN TO RECEIVE A VACCINE IN THE NEXT 21 DAYS? :YES 2ND COVID 07/28/2020 MODERNA DO YOU NEED ANY PRESCRIPTION? :NO DO YOU TAKE ANY IMMUNOSUPPRESSIVE MEDICATIONS? :NO IS THERE A CHANCE YOU COULD BE ? :NO ARE YOU BREAST FEEDING? :NO CURRENT MEDICATIONS TAKING ASPIR-LOW 81 MG TABLET DELAYED RELEASE 1 TABLET ORALLY ONCE A DAY NOT-TAKING ASPIRIN 81 MG TABLET CHEWABLE 1 TABLET ORALLY ONCE A DAY NOT-TAKING TAMSULOSIN HCL 0.4 MG CAPSULE 1 CAPSULE ORALLY ONCE A DAY NOT-TAKING LISINOPRIL 5 MG TABLET 1 TABLET ORALLY ONCE A DAY NOT-TAKING CYMBALTA 30 MG CAPSULE DELAYED RELEASE PARTICLES 1 CAPSULE ORALLY ONCE A DAY NOT-TAKING VENTOLIN HFA 108 (90 BASE) MCG/ACT AEROSOL SOLUTION 2 PUFFS NEEDED INHALATION EVERY 4 HRS NOT-TAKING CLOPIDOGREL BISULFATE 75 MG TABLET 1 TABLET ORALLY ONCE A DAY, NOTES: DR. GRAHAM NOT-TAKING CARVEDILOL 6.25 MG TABLET 1 TABLET ORALLY TWICE A DAY NOT-TAKING AMITRIPTYLINE HCL 25 MG TABLET 1 TABLET AT BEDTIME ORALLY ONCE A DAY MEDICATION LIST REVIEWED AND RECONCILED WITH THE PATIENT PAST MEDICAL HISTORY DE X 4: 2011, 2013 DDD HEPATITIS C, CHRONIC PACEMAKER LBBB LBP, BILATERAL SCIATICA HTN, GOAL 140/90 ONE FALLS REPORTED IN THE LAST YEAR BROKE HIS LEG, 2 FALL THIS YEAR HURT THIS LEFT WRIST FOR ONE OF THE FALLS ALLERGIES PENICILLIN V POTASSIUM: HIVES - ALLERGY SURGICAL HISTORY KIDNEY SURGERY X 3, URETER 1987 FX R ANKLE 1995 T&A DENTAL SURGERY, ROOT CANAL, EXTRACTION DARIN EAR SURGERIES, A KID CARDIAC CATH, NO STENTS 2011, 07/2013 PACEMAKER (IN [place]) 08/08/18 CABG STENTS 2010 LEFT TESTICLE REMOVAL 1980 DIFFICULTY BREATHING FROM 1ST DOSE OF COVID 07/2020 FAMILY HISTORY FATHER: 93 YRS MOTHER: 50 YRS, DIAGNOSED WITH OTHER MALIGNANT NEOPLASM OF UNSPECIFIED SITE SIBLINGS: , DIABETES DAUGHTER(S): ALIVE PATERNAL GRAND FATHER: , DIABETES 1 BROTHER(S) , 2 SISTER(S) . 4DAUGHTER(S) - HEALTHY. ONE BROTHER ALIVE TODAY 07/23/2020. SOCIAL HISTORY GENERAL: TOBACCO USE ARE YOU A:: NEVER SMOKER. LATEX QUESTIONNAIRE LATEX ALLERGY : HAVE YOU EVER DEVELOPED ANY TYPE OF REACTION AFTER HANDLING LATEX PRODUCTS SUCH RUBBER GLOVES, CONDOMS, DIAPHRAGMS, BALLOONS, SOCKS, OR UNDERWEAR?NO LATEX ALLERGY : HAVE YOU EVER DEVELOPED ANY TYPE OF REACTION DURING OR AFTER DENTAL APPOINTMENT, VAGINAL/RECTAL EXAMINATION, SURGICAL PROCEDURE, OR ANY OTHER EXPOSURE?NO LATEX RISK : HAVE YOU EVER HAD ANY DIFFICULTY BREATHING OR HIVES AFTER EATING OR HANDLING ANY FRUITS, OR VEGETABLES; SUCH KIWI, BANANAS, STONE FRUITS, OR CHESTNUTSNO LATEX RISK : DO YOU HAVE A PREVIOUS PERSONAL HISTORY OF MORE THAN NINE SURGERIES, SPINA BIFIDA, OR REPEATED CATHERIZATIONS? NO LATEX RISK : ARE YOU FREQUENTLY EXPOSED TO LATEX PRODUCTS IN YOUR OCCUPATION?NO DATE ASKED : 07/23/2020 ALCOHOL USE: NO, USED TO BE. RECREATIONAL DRUG USE ACCEDES MARIJUANA EVERY DAY, DENIES COCAINE USE BUT RECORDS SHOW THAT HE LAST USED OF 2012 VIA URINE TOX SCREEN.. CAFFEINE NONE. SEXUAL HX HAD SEX IN THE LAST 12 MONTHS (VAGINAL, ORAL, OR ANAL)?: YES, WITH: WOMEN ONLY, USE PROTECTION?: YES, HOW OFTEN?: ALL OF THE TIME, PREVENTION STRATEGIES DISCUSSED:: CONDOMS, HAVE YOU EVER HAD AN STD?: NO. 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 OCCUPATION: UNEMPLOYED. DIET: CARBOHYDRATE CONTROLLED. EXERCISE: NO REGULAR EXERCISE. MARITAL STATUS: .. 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 HOSPITALIZATION/MAJOR DIAGNOSTIC PROCEDURE SEE ABOVE REVIEW OF SYSTEMS CONSTITUTIONAL: ANY RECENT FEVER NO . CHILLS NO . WEIGHT CHANGE OF UNKNOWN REASONS NO . GASTROENTEROLOGY: NEW UNEXPLAINABLE CHANGES IN BOWEL CONTROL NO . CONSTIPATION NO . GENITOURINARY: ANY NEW CHANGE IN BLADDER CONTROL? NO . NEUROLOGY: NEW ONSET DIZZINESS OR NEUROLOGICAL CHANGES NOT MENTIONED NO . NEW NUMBNESS OR PAIN PATTERNS NOT MENTIONED AND PERTINENT TO TODAY'S VISIT NO . CARDIOLOGY: NEW CHEST PRESSURE NO . PATIENT DENIES NO . RESPIRATORY: UNEXPLAINABLE COUGH NO . NEW SHORTNESS OF BREATH NO . VITAL SIGNS WT 150 LBS, HT 67 IN, BMI 23.49 INDEX, BP 155/84 MM HG, HR 77 /MIN, RR 18 /MIN, TEMP 98.1 F, OXYGEN SAT % 98%, SAFE IN ENV? (Y/N) YEST.AMINATA CAREY. EXAMINATION GENERAL EXAMINATION: GENERALNO ACUTE DISTRESS, WELL NOURISHED AND HYDRATED.ACCOMPANIED IN EXAM ROOM WITH HIS .. PSYCH FLAT AFFECT. NECK:SPECIFIC POINT TENDERNESS NOTED OVER LEFT GREATER AND LESSER OCCIPITAL NERVE ROOT . LUNGS:CLEAR TO AUSCULTATION BILATERALLY, NO WHEEZES, RHONCHI, RALES. HEART:NO MURMURS, REGULAR RATE AND RHYTHM. NEUROLOGIC EXAM: CN'S II-XII GROSSLY INTACT.NEGATIVE ROMBERG. DIAGNOSTIC TESTS REVIEWED MRI C-SPINE. ASSESSMENTS CERVICAL DISC DISORDER - M50.90 (PRIMARY) TREATMENT CERVICAL DISC DISORDER MEDICATION: VALIUM TAB 10MG ORALLY (DIAZEPAM) (ORDERED FOR 07/30/2020) MEDICATION: OXYCODONE HCL TAB 5MG ORALLY (ORDERED FOR 07/30/2020) MED: PAIN ZOFRAN ODT TAB 4MG DISSOLVE ON TONGUE ONDANSETRON (ORDERED FOR 07/30/2020) SALINE LOCK (ORDERED FOR 07/30/2020) NOTES: CERVICAL EPIDURAL STERIOD INJECTION PRINTED AND REVIEWED PRE PROCDURE INFORMATION, PATIENT AND HIS GIRLFRIEND BOTH VERBALIZED UNDERSTANDING SINDY CAREY. PROCEDURE CODES FA211 ESTABILISHED PATIENT [facility] CHARGE DISPOSITION & COMMUNICATION FOLLOW UP POST PROCEDURE (REASON: CERVICAL EPIDURAL STERIOD INJECTION) ELECTRONICALLY SIGNED BY JUSTINA GARCIA ON 07/26/2020 AT 03:23 PM EDT DISCLAIMER : THIS IS A VISIT SUMMARY EXTRACTED FROM THE [employer] CHART. IT IS NOT A COPY OF THE [employer] PROGRESS NOTE. MISAEL
== END ==
LOC: M PAIN 14:30
PROVIDERS: ATTEND Nurse Practitioner Family
DX: M50.90 Cervical disc disorder, unspecified, unspecified cervical region (principal); I25.2 Old myocardial infarction; Z95.0 Presence of cardiac pacemaker; Z95.1 Presence of aortocoronary bypass graft; Z88.0 Allergy status to penicillin; Z79.82 Long term (current) use of aspirin

== ENCOUNTER 2020-11-29 13:44 | Emergency (ER) | payer OTHER ==
[~2020-11-29] VITALS: Ht 170.2 cm; Wt 68.2 kg
[~2020-11-29 13:44] MED LIST changes: -CLIN150C15 PO; +CLIN150C17 PO
[2020-11-29 14:25] LABS: BASO # 0.1 10^3/uL (0.0-0.2); BASO % 0.6 % (0.0-1.0); EOS % 0.3 % (0.0-3.0); HEMATOCRIT 45.7 % (42.0-52.0); HEMOGLOBIN 15.4 g/dl (13.5-17.5); LYMPH # 3.1 10^3/uL (1.5-5.0); LYMPH % 19.5 % (24.0-44.0); MEAN CORPUSCULAR HEMOGLOBIN 29.5 pg (27.0-33.0); MEAN CORPUSCULAR HGB CONC 33.7 g/dl (32.0-36.5); MEAN CORPUSCULAR VOLUME 87.5 fl (80.0-96.0); MONO # 0.9 10^3/uL (0.0-0.8); MONO % 5.8 % (2.0-8.0); NEUTROPHILS # 11.5 10^3/uL (1.5-8.5); NEUTROPHILS % 73.5 % (36.0-66.0); PLATELET COUNT, AUTOMATED 380 10^3/uL (150-450); RED BLOOD COUNT 5.22 10^6/uL (4.30-6.10); WHITE BLOOD COUNT 15.6 10^3/uL (4.0-10.0)
[2020-11-29 14:30] VITALS: BP 160/78
[2020-11-29] MEDS ORDERED: ASPIRIN 81 MG CHEW TABLET PO ONE (14:45)
[2020-11-29] MEDS ORDERED: MORPHINE 4 MG/ML 1ML VIAL/SYRINGE (J2270) IV ONE (14:45)
[2020-11-29 14:53] LABS: BLOOD UREA NITROGEN 20 MG/DL (7-18); CALCIUM LEVEL 9.3 MG/DL (8.5-10.1); CARBON DIOXIDE LEVEL 23 MEQ/L (21-32); CHLORIDE LEVEL 108 MEQ/L (98-107); CREATININE FOR GFR 1.25 MG/DL (0.70-1.30); GLOMERULAR FILTRATION RATE > 60.0 (>56); GLUCOSE, FASTING 158 MG/DL (70-100); POTASSIUM SERUM 3.7 MEQ/L (3.5-5.1); SODIUM LEVEL 139 MEQ/L (136-145)
--- NOTE | 2020-11-29 15:03 | REP ---
INDICATION: CHEST PAIN. COMPARISON: 07/14/2020 TECHNIQUE: Portable FINDINGS: The technique utilized in obtaining the radiograph has magnified the cardiac silhouette and accentuated the interstitial markings. The superior mediastinal structures are midline. The cardiac silhouette is unremarkable in size, shape, and position. The diaphragmatic surfaces of the lungs are regular, and the costophrenic angles are clear. The pulmonary scott are clear. The imaged osseous structures are intact. IMPRESSION: There is no acute cardiopulmonary disease. <Electronically signed by David Luo > 11/29/20 [id number]
--- NOTE | 2020-11-29 15:25 | REP ---
INDICATION: fall injury;pain. COMPARISON: None. TECHNIQUE: Four views FINDINGS: There has been previous ORIF. Distal fibular internal fixation plate and 7 affixing screws are identified. There is no evidence of an acute fracture, dislocation, or subluxation. The mortise is intact. IMPRESSION: Chronic changes as described above. <Electronically signed by David Luo > 11/29/20 2218
--- NOTE | 2020-11-29 15:26 | REP ---
INDICATION: fall injury;pain. COMPARISON: None. TECHNIQUE: Four views FINDINGS: There is no evidence of an acute fracture or destructive osseous lesion. IMPRESSION: No acute osseous abnormality. <Electronically signed by David Luo > 11/29/20 [id number]
--- NOTE | 2020-11-29 15:28 | REP ---
INDICATION: fall injury;pain. TECHNIQUE: Three views FINDINGS: Trauma series consists of four views. The three-view examination cannot rule out a fracture. IMPRESSION: Limited three-view examination showing no gross fracture, however, four view trauma series recommended if a fracture is of clinical concern. <Electronically signed by David Luo > 11/29/20 1526
--- NOTE | 2020-11-30 04:56 | ECGEPIP ---
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
== END 2020-11-29 15:33 | disposition left against medical advice (07) ==
LOC: M ED 13:44
DX: R07.9 Chest pain, unspecified (principal); M25.571 Pain in right ankle and joints of right foot; M25.521 Pain in right elbow; W10.8XXA Fall (on) (from) other stairs and steps, initial encounter; Y92.009 Unspecified place in unspecified non-institutional (private) residence as the place of occurrence of the external cause; Y93.9 Activity, unspecified; Y99.9 Unspecified external cause status; Z53.9 Procedure and treatment not carried out, unspecified reason; R94.31 Abnormal electrocardiogram [ECG] [EKG]; I25.10 Atherosclerotic heart disease of native coronary artery without angina pectoris; I25.2 Old myocardial infarction; M54.5 Low back pain; F41.9 Anxiety disorder, unspecified; F32.9 Major depressive disorder, single episode, unspecified; Z88.0 Allergy status to penicillin

== ENCOUNTER 2021-12-06 15:00 | Emergency (ER) | payer OTHER ==
[~2021-12-06] VITALS: Ht 170.2 cm; Wt 65.9 kg
[~2021-12-06 15:00] MED LIST changes: -LISI-898; +LISI5TAB11; +TIZA10TA; -TIZA4TAB4
[2021-12-06 16:57] LABS: BASO # 0.1 10^3/uL (0.0-0.2); BASO % 0.8 % (0.0-1.0); EOS # 0.2 10^3/uL (0.0-0.5); EOS % 1.6 % (0.0-3.0); HEMATOCRIT 46.1 % (42.0-52.0); HEMOGLOBIN 15.4 g/dl (13.5-17.5); LYMPH # 2.3 10^3/uL (1.5-5.0); LYMPH % 25.4 % (24.0-44.0); MEAN CORPUSCULAR HEMOGLOBIN 30.2 pg (27.0-33.0); MEAN CORPUSCULAR HGB CONC 33.4 g/dl (32.0-36.5); MEAN CORPUSCULAR VOLUME 90.4 fl (80.0-96.0); MONO # 0.6 10^3/uL (0.0-0.8); MONO % 6.6 % (2.0-8.0); NEUTROPHILS % 65.4 % (36.0-66.0); PLATELET COUNT, AUTOMATED 325 10^3/uL (150-450); WHITE BLOOD COUNT 9.2 10^3/uL (4.0-10.0)
[2021-12-06 17:29] LABS: BLOOD UREA NITROGEN 15 MG/DL (7-18); CALCIUM LEVEL 9.3 MG/DL (8.5-10.1); CARBON DIOXIDE LEVEL 27 MEQ/L (21-32); CHLORIDE LEVEL 105 MEQ/L (98-107); CREATININE FOR GFR 0.87 MG/DL (0.70-1.30); GLOMERULAR FILTRATION RATE > 60.0 (>56); GLUCOSE, FASTING 87 MG/DL (70-100); POTASSIUM SERUM 4.2 MEQ/L (3.5-5.1); SODIUM LEVEL 136 MEQ/L (136-145)
[2021-12-06 17:33] LABS: ERYTHROCYTE SEDIMENTATION RATE 2 mm/hr (0-20)
[2021-12-06] MEDS ORDERED: DOXY-443 PO (17:39)
[2021-12-06] MEDS ORDERED: DOXYCYCLINE HYCLATE 100MG TABLET PO ONE (17:40)
[2021-12-06 17:46] VITALS: BP 140/90
== END 2021-12-06 17:52 | disposition home or self-care (01) ==
LOC: M ED 15:00
DX: L03.115 Cellulitis of right lower limb (principal); I25.2 Old myocardial infarction; Z88.0 Allergy status to penicillin; Z79.899 Other long term (current) drug therapy

== ENCOUNTER 2022-01-01 02:31 | Emergency (ER) | payer OTHER ==
[~2022-01-01] VITALS: Ht 170.2 cm; Wt 68.2 kg
[~2022-01-01 02:31] MED LIST changes: +DOXY-443 PO
[2022-01-01 04:14] LABS: BASO % 0.3 % (0.0-1.0); EOS # 0.1 10^3/uL (0.0-0.5); EOS % 0.9 % (0.0-3.0); HEMATOCRIT 40.8 % (42.0-52.0); HEMOGLOBIN 13.7 g/dl (13.5-17.5); LYMPH # 1.5 10^3/uL (1.5-5.0); MEAN CORPUSCULAR HEMOGLOBIN 29.8 pg (27.0-33.0); MEAN CORPUSCULAR HGB CONC 33.6 g/dl (32.0-36.5); MEAN CORPUSCULAR VOLUME 88.9 fl (80.0-96.0); MONO # 0.6 10^3/uL (0.0-0.8); MONO % 5.4 % (2.0-8.0); NEUTROPHILS # 9.4 10^3/uL (1.5-8.5); NEUTROPHILS % 80.1 % (36.0-66.0); PLATELET COUNT, AUTOMATED 283 10^3/uL (150-450); RED BLOOD COUNT 4.59 10^6/uL (4.30-6.10); WHITE BLOOD COUNT 11.7 10^3/uL (4.0-10.0)
[2022-01-01 04:37] LABS: INR 0.95; PROTHROMBIN TIME 12.9 SECONDS (12.5-14.5)
[2022-01-01 04:38] LABS: PARTIAL THROMBOPLASTIN TIME 31.6 SECONDS (24.8-34.2)
[2022-01-01 04:40] LABS: BLOOD UREA NITROGEN 12 MG/DL (7-18); CALCIUM LEVEL 8.4 MG/DL (8.5-10.1); CARBON DIOXIDE LEVEL 25 MEQ/L (21-32); CHLORIDE LEVEL 105 MEQ/L (98-107); CREATININE FOR GFR 0.94 MG/DL (0.70-1.30); GLOMERULAR FILTRATION RATE > 60.0 (>56); GLUCOSE, FASTING 165 MG/DL (70-100); POTASSIUM SERUM 3.7 MEQ/L (3.5-5.1); SODIUM LEVEL 136 MEQ/L (136-145)
[2022-01-01] MEDS ORDERED: CIPRODEX OTIC SUSP 7.5ML AS STA (05:00)
[2022-01-01] MEDS ORDERED: MECLIZINE 25 MG TABLET PO ONE (05:00)
[2022-01-01] MEDS ORDERED: NS 1,000 ML IV ONE (06:00)
[2022-01-01] MEDS ORDERED: KETOROLAC 30 MG/ML 1ML VIAL IV ONE (06:10)
[2022-01-01] MEDS ORDERED: CIPR7.5D5 OTIC (08:34)
[2022-01-01] MEDS ORDERED: KETO10TAB PO (08:34)
[2022-01-01 09:08] VITALS: BP 124/64
== END 2022-01-01 09:21 | disposition home or self-care (01) ==
LOC: M ED 02:31
DX: H60.90 Unspecified otitis externa, unspecified ear (principal); G43.909 Migraine, unspecified, not intractable, without status migrainosus; I49.1 Atrial premature depolarization; I44.4 Left anterior fascicular block; Z95.0 Presence of cardiac pacemaker; Z95.5 Presence of coronary angioplasty implant and graft; Z88.0 Allergy status to penicillin; Z79.899 Other long term (current) drug therapy
CPT/HCPCS: 70450; 80048; 83735; 85025; 85610; 85730; 93005; 96374; 99285; J1885

== ENCOUNTER 2022-08-28 08:36 | Observation (INO) | payer OTHER ==
[~2022-08-28] VITALS: Ht 170.2 cm; Wt 63.6 kg
[~2022-08-28 08:36] MED LIST changes: -AMIT25TA17; +AMIT25TA19; +CIPR7.5D5 OTIC; +KETO10TAB PO
[2022-08-28 09:39] LABS: BASO # 0.1 10^3/uL (0.0-0.2); BASO % 0.5 % (0.0-1.0); EOS # 0.1 10^3/uL (0.0-0.5); EOS % 0.3 % (0.0-3.0); HEMATOCRIT 49.6 % (42.0-52.0); HEMOGLOBIN 16.6 g/dl (13.5-17.5); LYMPH % 11.9 % (24.0-44.0); MEAN CORPUSCULAR HEMOGLOBIN 29.5 pg (27.0-33.0); MEAN CORPUSCULAR HGB CONC 33.5 g/dl (32.0-36.5); MEAN CORPUSCULAR VOLUME 88.1 fl (80.0-96.0); MONO # 1.1 10^3/uL (0.0-0.8); MONO % 6.7 % (2.0-8.0); NEUTROPHILS # 13.4 10^3/uL (1.5-8.5); NEUTROPHILS % 80.1 % (36.0-66.0); PLATELET COUNT, AUTOMATED 276 10^3/uL (150-450); RED BLOOD COUNT 5.63 10^6/uL (4.30-6.10); WHITE BLOOD COUNT 16.8 10^3/uL (4.0-10.0)
[2022-08-28 10:37] LABS: LIPASE 76 U/L (12-53)
[2022-08-28 10:40] LABS: ALBUMIN 3.8 G/DL (3.2-5.2); ALKALINE PHOSPHATASE 71 U/L (46-116); ALT/SGPT 48 U/L (7.0-40); AST/SGOT 28 U/L (<34); BILIRUBIN,DIRECT 0.3 MG/DL (<0.4); BILIRUBIN,TOTAL 0.9 MG/DL (0.3-1.2); BLOOD UREA NITROGEN 12 MG/DL (9-23); CALCIUM LEVEL 9.1 MG/DL (8.5-10.1); CARBON DIOXIDE LEVEL 23 MMOL/L (20-31); CHLORIDE LEVEL 102 MMOL/L (98-107); CREATININE FOR GFR 0.95 MG/DL (0.70-1.30); GLOMERULAR FILTRATION RATE > 60.0 (>56); GLUCOSE, FASTING 114 MG/DL (60-100); POTASSIUM SERUM 4.4 MMOL/L (3.5-5.1); SODIUM LEVEL 132 MMOL/L (136-145); TOTAL PROTEIN 7.2 G/DL (5.7-8.2)
[2022-08-28] MEDS ORDERED: ONDANSETRON 4MG 2ML VIAL IV ONE (11:10)
[2022-08-28] MEDS ORDERED: NS 1,000 ML IV ONE (11:10)
[2022-08-28] MEDS ORDERED: KETOROLAC 30 MG/ML 1ML VIAL IV ONE (11:10)
[2022-08-28] MEDS ORDERED: ISOVUE-370 76% 100ML VIAL As Ordered ONE ×2 (11:35→15:33)
[2022-08-28 14:23] VITALS: TEMP 96.1
[2022-08-28 15:37] LABS: INR 1.01; PROTHROMBIN TIME 13.5 SECONDS (12.5-14.5)
[2022-08-28 15:38] LABS: PARTIAL THROMBOPLASTIN TIME 29.9 SECONDS (24.8-34.2)
[2022-08-28 15:56] LABS: CK-MB VALUE MASS < 1.0 NG/ML (<3.6)
[2022-08-28 15:57] LABS: CPK CREATINE PHOSPHOKINASE 59 U/L (46-171); MB/CK RELATIVE INDEX 1.69 (< OR =4)
[2022-08-28 16:10] LABS: BARBITURATES URINE NEGATIVE (NEGATIVE); BENZODIAZEPINES URINE NEGATIVE (NEGATIVE); COCAINE METABOLITE URINE NEGATIVE (NEGATIVE); METHADONE URINE NEGATIVE (NEGATIVE); OPIATES URINE NEGATIVE (NEGATIVE); PHENCYCLIDINE URINE NEGATIVE (NEGATIVE)
[2022-08-28 16:11] LABS: AMPHETAMINES LEVEL URINE POSITIVE (NEGATIVE); CANNABINOIDS URINE POSITIVE (NEGATIVE)
[2022-08-28 16:14] LABS: RSV AMPLIFICATION NEGATIVE (NEGATIVE)
[2022-08-28] MEDS ORDERED: LevoFLOXacin IV 750 MG in IV 1 EA IV ONE (16:15)
[2022-08-28] MEDS ORDERED: NS 910 ML in IV 1 EA IV ONE (16:15)
[2022-08-28] MEDS ORDERED: KETOROLAC 30 MG/ML 1ML VIAL IV PRN (18:10)
[2022-08-28] MEDS ORDERED: NS 1,000 ML IV SCH (18:10)
[2022-08-28] MEDS ORDERED: MED REC IN PROGRESS XX SCH (18:10)
[2022-08-28] MEDS ORDERED: ACETAMINOPHEN TAB 650MG DOSE (2X325MG) PO PRN (18:10)
[2022-08-28] MEDS ORDERED: HOME MED LIST COMPLETE! XX SCH (18:40)
[2022-08-28 19:00] VITALS: BP 128/83; O2SAT 99
[2022-08-29] MEDS ORDERED: PANTOPRAZOLE 20 MG TAB PO SCH (09:00)
[2022-08-29] MEDS ORDERED: ENOXAPARIN 40MG/0.4ML SYRINGE (J1650 PER 10MG) SC SCH (09:00)
[2022-08-29] MEDS ORDERED: ATORVASTATIN 20 MG TAB PO SCH (09:00)
[2022-08-29] MEDS ORDERED: ASPIRIN 81MG ENTERIC TABLET PO SCH (09:00)
== END 2022-08-28 20:30 | disposition home or self-care (01) ==
LOC: M ED 08:36 → EDBD 08:36 → M ED INP 08:37
PROVIDERS: ADMIT Internal Medicine; ATTEND Internal Medicine
DX: N13.30 Unspecified hydronephrosis (principal); Z53.29 Procedure and treatment not carried out because of patient's decision for other reasons; Z91.148 Patient's other noncompliance with medication regimen for other reason; D72.829 Elevated white blood cell count, unspecified; I25.10 Atherosclerotic heart disease of native coronary artery without angina pectoris; Z95.810 Presence of automatic (implantable) cardiac defibrillator; R55 Syncope and collapse; F12.10 Cannabis abuse, uncomplicated
CPT/HCPCS: 36415; 70450; 70496; 70498; 71046; 74177; 80048; 80076; 80307; 81001; 82550; 82553; 83605; 83690; 85025; 85610; 85730; 87040; 87631; 93005; 96365; 96375; 96376; 99284; J1885; J1956; J2405; Q9967

== ENCOUNTER 2023-07-16 01:15 | Inpatient (IN) | payer MEDICAID, OTHER ==
[~2023-07-16] VITALS: Ht 170.2 cm; Wt 64.4 kg
[~2023-07-16 01:15] MED LIST changes: +DOXY-323 PO; -DOXY-443 PO
[2023-07-16 01:43] LABS: BASO # 0.1 10^3/uL (0.0-0.2); BASO % 0.6 % (0.0-1.0); EOS # 0.1 10^3/uL (0.0-0.5); EOS % 0.7 % (0.0-3.0); HEMATOCRIT 45.2 % (42.0-52.0); HEMOGLOBIN 15.1 g/dl (13.5-17.5); LYMPH # 2.4 10^3/uL (1.5-5.0); LYMPH % 29.2 % (24.0-44.0); MEAN CORPUSCULAR HEMOGLOBIN 29.8 pg (27.0-33.0); MEAN CORPUSCULAR HGB CONC 33.4 g/dl (32.0-36.5); MEAN CORPUSCULAR VOLUME 89.3 fl (80.0-96.0); MONO # 0.5 10^3/uL (0.0-0.8); MONO % 6.6 % (2.0-8.0); NEUTROPHILS # 5.2 10^3/uL (1.5-8.5); NEUTROPHILS % 62.7 % (36.0-66.0); PLATELET COUNT, AUTOMATED 328 10^3/uL (150-450); RED BLOOD COUNT 5.06 10^6/uL (4.30-6.10); WHITE BLOOD COUNT 8.2 10^3/uL (4.0-10.0)
[2023-07-16 02:05] LABS: ETHYL ALCOHOL (ETHANOL) < 0.003 % (0.000-0.010)
[2023-07-16 02:07] LABS: SALICYLATE LEVEL < 3.0 MG/DL (<30)
[2023-07-16 02:08] LABS: ALBUMIN 4.1 G/DL (3.2-5.2); ALKALINE PHOSPHATASE 68 U/L (46-116); ALT/SGPT 61 U/L (7.0-40); AST/SGOT 45 U/L (<34); BILIRUBIN,DIRECT 0.3 MG/DL (<0.4); BILIRUBIN,TOTAL 0.6 MG/DL (0.3-1.2); BLOOD UREA NITROGEN 14 MG/DL (9-23); CALCIUM LEVEL 9.5 MG/DL (8.5-10.1); CARBON DIOXIDE LEVEL 27 MMOL/L (20-31); CHLORIDE LEVEL 105 MMOL/L (98-107); CK-MB VALUE MASS 11.7 NG/ML (<3.6); CREATININE FOR GFR 0.96 MG/DL (0.70-1.30); GLOMERULAR FILTRATION RATE > 60.0 (>56); GLUCOSE, FASTING 104 MG/DL (60-100); POTASSIUM SERUM 4.2 MMOL/L (3.5-5.1); SODIUM LEVEL 140 MMOL/L (136-145); TOTAL PROTEIN 7.3 G/DL (5.7-8.2)
[2023-07-16 02:09] LABS: THYROID STIMULATING HORMONE 2.091 uIU/ML (0.55-4.78)
[2023-07-16 02:18] LABS: CPK CREATINE PHOSPHOKINASE 409 U/L (46-171); MB/CK RELATIVE INDEX 2.86 (< OR =4)
[2023-07-16] MEDS ORDERED: HOME MED LIST COMPLETE! XX SCH (02:40)
[2023-07-16 03:05] LABS: CK-MB VALUE MASS 10.3 NG/ML (<3.6)
[2023-07-16 03:14] LABS: MB/CK RELATIVE INDEX 2.73 (< OR =4)
[2023-07-16] MEDS: BOOSTRIX VACCINE (TETANUS/DIPHTH/ACEL. PERTUSSIS) 0.5ML SYR IM ONE (03:53)
[2023-07-16 05:14] LABS: CK-MB VALUE MASS 9.4 NG/ML (<3.6)
[2023-07-16 05:25] LABS: MB/CK RELATIVE INDEX 2.73 (< OR =4)
[2023-07-16 06:11] LABS: AMPHETAMINES LEVEL URINE POSITIVE (NEGATIVE); BARBITURATES URINE NEGATIVE (NEGATIVE); BENZODIAZEPINES URINE NEGATIVE (NEGATIVE); CANNABINOIDS URINE POSITIVE (NEGATIVE); COCAINE METABOLITE URINE POSITIVE (NEGATIVE); METHADONE URINE NEGATIVE (NEGATIVE); OPIATES URINE NEGATIVE (NEGATIVE); PHENCYCLIDINE URINE NEGATIVE (NEGATIVE)
[2023-07-16] MEDS ORDERED: diphenhydrAMINE 25MG CAP PO PRN (13:40)
[2023-07-16] MEDS ORDERED: MAALOX 30 ML SUSP *UDC PO PRN (13:40)
[2023-07-16] MEDS ORDERED: MOM 30ML SUSPENSION UDC PO PRN (13:40)
[2023-07-16] MEDS ORDERED: traZODone 50 MG TAB PO PRN (13:40)
[2023-07-16 15:15] VITALS: BP 108/61; TEMP 98; O2SAT 100
[2023-07-17 06:34] VITALS: BP 130/77; TEMP 96.9; O2SAT 98
[2023-07-17] MEDS: ASPIRIN 81MG ENTERIC TABLET PO SCH (13:18)
[2023-07-17 18:58] VITALS: BP 133/84; TEMP 97.1
[2023-07-18 06:15] VITALS: BP 142/85; TEMP 99.1; O2SAT 99
[2023-07-18] MEDS: POLYSPORIN TOPICAL OINTMENT 15GM TOP SCH (15:53)
[2023-07-18 18:16] VITALS: BP 139/89; TEMP 97.6
[2023-07-18 21:20] VITALS: BP 120/95; TEMP 98.1; O2SAT 97
[2023-07-18] MEDS: IBUPROFEN 400MG TAB PO PRN (22:06)
[2023-07-18] MEDS: IBUPROFEN 400MG TAB PO ONE (22:31)
[2023-07-18 23:22] VITALS: BP 139/77; TEMP 97.4; O2SAT 99
[2023-07-18] MEDS ORDERED: KETOROLAC TROMETHAMINE 10 MG TAB PO ONE (23:35)
[2023-07-18] MEDS ORDERED: LIDOCAINE 2% JELLY 6ML SYRINGE TOP ONE (23:45)
[2023-07-19] MEDS: ACETAMINOPHEN TAB 650MG DOSE (2X325MG) PO PRN (06:36)
[2023-07-19] MEDS: LIDOCAINE 4% CREAM 5GM (LMX4) TOP PRN (06:38)
[2023-07-19] MEDS: hydrOXYzine 50 MG TAB PO ONE (13:18)
[2023-07-19] MEDS: IBUPROFEN 400MG TAB PO PRN (13:19)
[2023-07-19 18:14] VITALS: BP 144/88; TEMP 98.5; O2SAT 99
[2023-07-19] MEDS: KETOROLAC TROMETHAMINE 10 MG TAB PO PRN (21:37)
[2023-07-19 22:20] LABS: BASO # 0.1 10^3/uL (0.0-0.2); BASO % 0.7 % (0.0-1.0); EOS # 0.2 10^3/uL (0.0-0.5); EOS % 2.1 % (0.0-3.0); HEMATOCRIT 44.1 % (42.0-52.0); HEMOGLOBIN 14.7 g/dl (13.5-17.5); LYMPH # 2.2 10^3/uL (1.5-5.0); LYMPH % 20.1 % (24.0-44.0); MEAN CORPUSCULAR HEMOGLOBIN 29.6 pg (27.0-33.0); MEAN CORPUSCULAR HGB CONC 33.3 g/dl (32.0-36.5); MEAN CORPUSCULAR VOLUME 88.7 fl (80.0-96.0); MONO # 0.7 10^3/uL (0.0-0.8); MONO % 6.6 % (2.0-8.0); NEUTROPHILS # 7.5 10^3/uL (1.5-8.5); NEUTROPHILS % 70.1 % (36.0-66.0); PLATELET COUNT, AUTOMATED 300 10^3/uL (150-450); RED BLOOD COUNT 4.97 10^6/uL (4.30-6.10); WHITE BLOOD COUNT 10.7 10^3/uL (4.0-10.0)
[2023-07-19 22:25] VITALS: BP 168/102; TEMP 99.9; O2SAT 100
[2023-07-19 22:51] LABS: PROCALCITONIN 0.05 ng/ml
[2023-07-19 23:09] LABS: CK-MB VALUE MASS 2.9 NG/ML (<3.6)
[2023-07-19 23:10] LABS: MB/CK RELATIVE INDEX 2.63 (< OR =4)
[2023-07-19 23:13] VITALS: BP 168/102
[2023-07-19] MEDS: NITROGLYCERIN 0.3MG SUBL TAB SL PRN (23:13)
[2023-07-19 23:35] VITALS: BP 112/70
[2023-07-20] MEDS: CLINDAMYCIN 150MG CAPSULE PO SCH (01:19)
[2023-07-20 06:53] VITALS: BP 135/65; TEMP 99.9; O2SAT 98
[2023-07-20] MEDS ORDERED: ASPI81TAEC PO (09:34)
[2023-07-20] MEDS ORDERED: CLIN150C17 PO (09:34)
[2023-07-20] MEDS ORDERED: BACI28.3 TOP (09:34)
== END 2023-07-20 11:50 | disposition home or self-care (01) | DRG 753 ==
LOC: M ED 01:15 → EDBD 01:15 → M ED INP 13:39 → M PSY 14:34
PROVIDERS: ADMIT Student in an Organized Health Care Education/Training Program; ATTEND Student in an Organized Health Care Education/Training Program
DX: F39 Unspecified mood [affective] disorder (principal); I50.22 Chronic systolic (congestive) heart failure; R45.851 Suicidal ideations; Z91.148 Patient's other noncompliance with medication regimen for other reason; F12.90 Cannabis use, unspecified, uncomplicated; F15.90 Other stimulant use, unspecified, uncomplicated; Z88.0 Allergy status to penicillin; Z79.899 Other long term (current) drug therapy; Z79.82 Long term (current) use of aspirin; I25.10 Atherosclerotic heart disease of native coronary artery without angina pectoris; I25.2 Old myocardial infarction; Z95.0 Presence of cardiac pacemaker

== ENCOUNTER 2024-01-04 23:48 | Emergency (ER) | payer MEDICAID, OTHER ==
[~2024-01-04] VITALS: Ht 170.2 cm; Wt 65.7 kg
[~2024-01-04 23:48] MED LIST changes: +ASPI81TAEC PO; +BACI28.3 TOP; -CYCL5TAB PO; +CYCL5TAB4 PO; -DOXY-323 PO; +DOXY-441 PO; +GABA-1172 PO; -GABA-282 PO
[2024-01-05] MEDS: ACETAMINOPHEN 500 MG TAB PO ONE (03:25)
[2024-01-05] MEDS: NAPROXEN 250 MG TAB PO ONE (03:25)
[2024-01-05] MEDS ORDERED: DOXY-441 PO (03:44)
[2024-01-05 03:58] VITALS: BP 122/71; TEMP 97.8; O2SAT 97
== END 2024-01-05 03:59 | disposition home or self-care (01) ==
LOC: M ED 23:48
DX: L03.113 Cellulitis of right upper limb (principal); M25.531 Pain in right wrist; W10.8XXA Fall (on) (from) other stairs and steps, initial encounter; M50.321 Other cervical disc degeneration at C4-C5 level; Z88.0 Allergy status to penicillin; Z79.82 Long term (current) use of aspirin; Z79.2 Long term (current) use of antibiotics; Z79.899 Other long term (current) drug therapy; Z95.0 Presence of cardiac pacemaker

== ENCOUNTER 2024-02-12 15:27 | Inpatient (IN) | payer MEDICAID, OTHER ==
[~2024-02-12] VITALS: Ht 170.2 cm; Wt 68.7 kg
[2024-02-12 15:58] LABS: HEMATOCRIT 43.5 % (42.0-52.0); HEMOGLOBIN 14.6 g/dl (13.5-17.5); MEAN CORPUSCULAR HGB CONC 33.6 g/dl (32.0-36.5); MEAN CORPUSCULAR VOLUME 89.3 fl (80.0-96.0); PLATELET COUNT, AUTOMATED 351 10^3/uL (150-450); RED BLOOD COUNT 4.87 10^6/uL (4.30-6.10); WHITE BLOOD COUNT 9.9 10^3/uL (4.0-10.0)
[2024-02-12 16:46] LABS: ETHYL ALCOHOL (ETHANOL) < 0.003 % (0.000-0.010)
[2024-02-12 16:47] LABS: SALICYLATE LEVEL < 3.0 MG/DL (<30)
[2024-02-12 16:48] LABS: ALBUMIN 3.6 G/DL (3.2-5.2); ALKALINE PHOSPHATASE 72 U/L (40-129); ALT/SGPT 38 U/L (7.0-40); AST/SGOT 28 U/L (<34); BILIRUBIN,DIRECT < 0.1 MG/DL (<0.4); BILIRUBIN,TOTAL 0.2 MG/DL (0.3-1.2); BLOOD UREA NITROGEN 11 MG/DL (9-23); CALCIUM LEVEL 9.1 MG/DL (8.5-10.1); CARBON DIOXIDE LEVEL 24 MMOL/L (20-31); CHLORIDE LEVEL 107 MMOL/L (98-107); CREATININE FOR GFR 0.74 MG/DL (0.70-1.30); GLOMERULAR FILTRATION RATE > 60.0 (>56); GLUCOSE, FASTING 104 MG/DL (60-100); POTASSIUM SERUM 4.4 MMOL/L (3.5-5.1); SODIUM LEVEL 140 MMOL/L (136-145); TOTAL PROTEIN 7.2 G/DL (5.7-8.2)
[2024-02-12 16:50] LABS: THYROID STIMULATING HORMONE 2.649 uIU/ML (0.55-4.78)
[2024-02-12 18:08] LABS: BARBITURATES URINE NEGATIVE (NEGATIVE); BENZODIAZEPINES URINE NEGATIVE (NEGATIVE); METHADONE URINE NEGATIVE (NEGATIVE); OPIATES URINE NEGATIVE (NEGATIVE)
[2024-02-12 18:09] LABS: PHENCYCLIDINE URINE NEGATIVE (NEGATIVE)
[2024-02-12 18:12] LABS: AMPHETAMINES LEVEL URINE POSITIVE (NEGATIVE); CANNABINOIDS URINE POSITIVE (NEGATIVE); COCAINE METABOLITE URINE POSITIVE (NEGATIVE)
[2024-02-12] MEDS ORDERED: diphenhydrAMINE 25MG CAP PO PRN (18:25)
[2024-02-12] MEDS ORDERED: IBUPROFEN 400MG TAB PO PRN (18:25)
[2024-02-12] MEDS ORDERED: MOM 30ML SUSPENSION UDC PO PRN (18:25)
[2024-02-12] MEDS ORDERED: ACETAMINOPHEN 325 MG TAB PO PRN (18:25)
[2024-02-12] MEDS ORDERED: OLANZapine ORAL DISINTEGRATING TAB 5MG PO PRN (18:25)
[2024-02-12] MEDS ORDERED: LORazepam 2 MG TAB PO PRN (18:25)
[2024-02-12] MEDS ORDERED: MAALOX 30 ML SUSP *UDC PO PRN (18:25)
[2024-02-12] MEDS ORDERED: NAPR-849 PO (19:05)
[2024-02-12] MEDS ORDERED: HOME MED LIST COMPLETE! XX SCH (19:05)
[2024-02-12] MEDS ORDERED: OMEP-173 PO (19:05)
[2024-02-12 21:13] VITALS: BP 154/80; TEMP 96.9; O2SAT 100
[2024-02-12] MEDS: THIAMINE 100 MG TAB PO SCH (21:20)
[2024-02-12 21:21] VITALS: BP 154/80
[2024-02-13 08:31] VITALS: BP 140/94
[2024-02-13] MEDS: MULTIVITAMINS/MINERALS THERAP 1 TAB PO SCH (08:32)
[2024-02-13] MEDS: FOLIC ACID 1MG TAB PO SCH (08:32)
[2024-02-13] MEDS: PARoxetine 10MG TABLET PO SCH (13:07)
[2024-02-13] MEDS: cloNIDine 0.1MG TABLET PO SCH (13:07)
[2024-02-13 16:16] VITALS: BP 145/87; TEMP 97.6; O2SAT 100
[2024-02-13 17:11] VITALS: BP 145/87
[2024-02-13 18:13] LABS: HEMOGLOBIN A1c 5.6 % (4.0-6.0)
[2024-02-13 18:17] LABS: CHOLESTEROL RISK RATIO 3.24 (<5); HDL CHOLESTEROL 49.3 MG/DL (>40); LDL CHOLESTEROL 78.7 MG/DL (<100); NON-HDL-C 110.7 MG/DL
[2024-02-13] MEDS: TAMSULOSIN 0.4 MG CAP PO SCH (20:33)
[2024-02-14 06:54] VITALS: BP 107/57; TEMP 97.8; O2SAT 98
[2024-02-14 07:28] LABS: HEMOGLOBIN A1c 5.6 % (4.0-6.0)
[2024-02-14] MEDS: ASPIRIN 81MG ENTERIC TABLET PO SCH (08:33)
[2024-02-14] MEDS: BACLOFEN 5MG PER 1/2 TABLET PO SCH (12:31)
[2024-02-14 14:51] VITALS: BP 130/65; TEMP 99; O2SAT 98
[2024-02-14] MEDS: traZODone 50 MG TAB PO PRN (20:40)
[2024-02-15 06:29] VITALS: BP 117/64; TEMP 98.7; O2SAT 98
[2024-02-15] MEDS ORDERED: FLOM0.4C39 PO (08:53)
[2024-02-15] MEDS ORDERED: BACL10TA2 PO (08:53)
[2024-02-15] MEDS ORDERED: ASPI81TAEC PO (08:53)
[2024-02-15] MEDS ORDERED: PARO5TAB PO (08:53)
[2024-02-15] MEDS ORDERED: TRAZ-252 PO (08:53)
[2024-02-15] MEDS ORDERED: CLONI1TA PO (08:53)
[2024-02-15 09:12] VITALS: BP 151/66
== END 2024-02-15 12:41 | disposition home or self-care (01) | DRG 754 ==
LOC: M ED 15:27 → M ED INP 18:22 → M PSY 21:07
PROVIDERS: ADMIT Psychiatry & Neurology Psychiatry; ATTEND Psychiatry & Neurology Psychiatry
DX: F32.A Depression, unspecified (principal); F14.90 Cocaine use, unspecified, uncomplicated; F15.90 Other stimulant use, unspecified, uncomplicated; F12.90 Cannabis use, unspecified, uncomplicated; R45.851 Suicidal ideations; I25.10 Atherosclerotic heart disease of native coronary artery without angina pectoris; I25.2 Old myocardial infarction; E11.9 Type 2 diabetes mellitus without complications; Z79.899 Other long term (current) drug therapy; Z88.0 Allergy status to penicillin; Z91.018 Allergy to other foods; Z59.00 Homelessness unspecified; Z91.51 Personal history of suicidal behavior; N40.0 Benign prostatic hyperplasia without lower urinary tract symptoms; Z95.810 Presence of automatic (implantable) cardiac defibrillator

== ENCOUNTER 2024-04-11 14:06 | Emergency (ER) | payer MEDICAID, OTHER ==
[~2024-04-11] VITALS: Ht 170.2 cm; Wt 68.3 kg
[~2024-04-11 14:06] MED LIST changes: +BACL10TA2 PO; +CLONI1TA PO; +FLOM0.4C39 PO; +NAPR-849 PO; +OMEP-173 PO; +PARO5TAB PO; +TRAZ-252 PO
[2024-04-11] MEDS: oxyCODONE 5MG TAB PO ONE (16:21)
[2024-04-11] MEDS: ACETAMINOPHEN 325 MG TAB PO ONE (16:21)
[2024-04-11] MEDS: KETOROLAC 30 MG/ML 1ML VIAL IM ONE (18:22)
[2024-04-11 18:56] VITALS: BP 159/67; TEMP 96.9; O2SAT 97
== END 2024-04-11 18:59 | disposition home or self-care (01) ==
LOC: EDBD 14:06 → M ED 14:06
DX: S09.90XA Unspecified injury of head, initial encounter (principal); W00.0XXA Fall on same level due to ice and snow, initial encounter; F31.9 Bipolar disorder, unspecified; R51.9 Headache, unspecified; I25.2 Old myocardial infarction; E11.9 Type 2 diabetes mellitus without complications; Z86.79 Personal history of other diseases of the circulatory system; Z88.0 Allergy status to penicillin; Z91.018 Allergy to other foods; Y92.410 Unspecified street and highway as the place of occurrence of the external cause; Y93.89 Activity, other specified; Y99.9 Unspecified external cause status; Z79.82 Long term (current) use of aspirin; Z79.4 Long term (current) use of insulin; Z79.899 Other long term (current) drug therapy
CPT/HCPCS: 70450; 72125; 72128; 73030; 96374; 99284; J1885

== ENCOUNTER → 2024-06-25 | Outpatient (CLI) | payer OTHER ==
[2024-06-25 09:12] LABS: HEMATOCRIT 49.2 % (42.0-52.0); HEMOGLOBIN 16.4 g/dl (13.5-17.5); MEAN CORPUSCULAR HEMOGLOBIN 29.8 pg (27.0-33.0); MEAN CORPUSCULAR HGB CONC 33.3 g/dl (32.0-36.5); MEAN CORPUSCULAR VOLUME 89.5 fl (80.0-96.0); PLATELET COUNT, AUTOMATED 316 10^3/uL (150-450); WHITE BLOOD COUNT 7.2 10^3/uL (4.0-10.0)
[2024-06-25 09:54] LABS: ALBUMIN 3.8 G/DL (3.2-5.2); ALKALINE PHOSPHATASE 75 U/L (40-129); ALT/SGPT 70 U/L (7.0-40); AST/SGOT 49 U/L (<34); BILIRUBIN,TOTAL 0.4 MG/DL (0.3-1.2); BLOOD UREA NITROGEN 19 MG/DL (9-23); CALCIUM LEVEL 8.9 MG/DL (8.5-10.1); CARBON DIOXIDE LEVEL 31 MMOL/L (20-31); CHLORIDE LEVEL 102 MMOL/L (98-107); CHOLESTEROL LEVEL 188 MG/DL (<200); CREATININE FOR GFR 0.92 MG/DL (0.70-1.30); GLOMERULAR FILTRATION RATE > 90.0 (>56); GLUCOSE, FASTING 143 MG/DL (60-100); HDL CHOLESTEROL 53.6 MG/DL (>40); NON-HDL-C 134.4 MG/DL; POTASSIUM SERUM 4.5 MMOL/L (3.5-5.1); SODIUM LEVEL 141 MMOL/L (136-145); TOTAL PROTEIN 7.4 G/DL (5.7-8.2); TRIGLYCERIDES LEVEL 257 MG/DL (<150)
[2024-06-25 09:56] LABS: FREE T4 0.91 NG/DL (0.89-1.76)
[2024-06-25 09:57] LABS: THYROID STIMULATING HORMONE 4.638 uIU/ML (0.55-4.78)
[2024-06-25 10:14] LABS: HEMOGLOBIN A1c 5.4 % (4.0-6.0)
== END ==
LOC: M LAB 08:26
DX: R10.30 Lower abdominal pain, unspecified (principal)